=== PATIENT | male | born 1960 | race Two or more races ===

== ENCOUNTER 2016-09-05 14:15 | Inpatient (IN) | payer MEDICAID ==
[~2016-09-05] VITALS: Ht 175.3 cm; Wt 79.0 kg
[2016-09-05] MEDS ORDERED: SODIUM CHLORIDE 0.9% 1,000 ML IV ONE (15:01)
[2016-09-05 15:18] LABS: Basophils # (auto) 0.1 uL; Basophils % (auto) 0.6 % (0.0-2.0); Eosinophils # (auto) 0.2 uL; Hematocrit 45.7 % (41.0-53.0); Hemoglobin 15.3 g/dL (13.5-17.5); Lymphocytes # (auto) 1.3 uL; Lymphocytes % (auto) 16.3 % (10.0-50.0); Mean Corpuscular Hemoglobin 30.2 pg (28.0-32.0); Mean Corpuscular Hgb Conc. 33.5 g/dL (32.0-36.0); Mean Corpuscular Volume 90.2 fL (80.0-100.0); Mean Platelet Volume 8.5 fL (7.4-10.4); Monocytes # (auto) 0.5 uL; Monocytes % (auto) 5.5 % (0.0-12.0); Neutrophils # (auto) 6.2 uL; Neutrophils % (auto) 75.6 % (37.0-80.0); Platelet Count (auto) 242 10^3/uL (140-450); Red Cell Distribution Width 13.4 % (11.6-16.0); White Blood Cell 8.2 10^3/uL (4.4-10.8)
[2016-09-05 15:35] LABS: INR 1.03 (0.9-1.15); Partial Thromboplastin Time 26.9 sec (22.64-33.71); Prothrombin Time 10.6 sec (9.37-12.3)
[2016-09-05 15:46] LABS: Albumin 3.5 g/dL (3.4-5.0); BUN/Creatinine Ratio 15.2; Bilirubin, Total 0.6 mg/dL (0.2-1.0); Calcium 8.7 mg/dL (8.5-10.1); Potassium 4.8 mmol/L (3.5-5.1)
[2016-09-05 15:48] LABS: Urine RBC None Seen /hpf (0 - 3)
[2016-09-05 15:53] LABS: Urine Bilirubin Negative (Negative); Urine Blood Negative /uL (Negative); Urine Color Yellow (Yellow); Urine Hyaline Cast FEW /lpf (0 - 2); Urine Ketone Negative (Negative); Urine Nitrite Negative (Negative); Urine Urobilinogen Normal (Negative); Urine pH 5.5 (5.0-8.0)
[2016-09-05 16:11] LABS: Urine Glucose 4+ mg/dL (Normal)
[2016-09-05] MEDS ORDERED: cefTRIAXone 1GM/50ML D5W 50 ML IV ONE (17:30)
[2016-09-05] MEDS ORDERED: InsuLIN REG 1unit/0.01ml Soln (100units/ml) IV ONE (17:45)
[2016-09-05 18:16] LABS: INR 1.03 (0.9-1.15); Partial Thromboplastin Time 27.1 sec (22.64-33.71); Prothrombin Time 10.6 sec (9.37-12.3)
[2016-09-05] MEDS ORDERED: HYDROcodone-ACET 5/325MG TAB PO PRN (21:30)
[2016-09-05] MEDS ORDERED: ONDANSETRON HCL 4 MG/2 ML VIAL IV PRN (21:30)
[2016-09-05] MEDS ORDERED: DEXTROSE (50%) 50ML SYRG IV PRN (21:30)
[2016-09-05] MEDS ORDERED: ACETAMINOPHEN 325 MG TAB PO PRN (21:30)
[2016-09-05] MEDS ORDERED: ENOXAPARIN SOD 30 MG/0.3 ML SYRINGE SC SCH (21:41)
[2016-09-05] MEDS: CARVEDILOL 3.125 MG TAB PO SCH (21:57)
[2016-09-05] MEDS: SODIUM CHLORIDE 0.9% 1,000 ML IV SCH (21:57)
[2016-09-05] MEDS: FAMOTIDINE 20 MG TAB PO SCH (21:57)
[2016-09-05] MEDS ORDERED: ATORVASTATIN 20 MG TAB PO SCH (22:00)
[2016-09-05] MEDS ORDERED: AMITRIPTYLINE HCL 25 MG TAB PO SCH (22:00)
[2016-09-05 22:26] VITALS: BP 141/80
[2016-09-05] MEDS: ACCU-CHEK COMFORT CURVE STRIP VI SCH (23:43)
[2016-09-05] MEDS: InsuLIN REG 1unit/0.01ml Soln (100units/ml) SC SCH (23:43)
[2016-09-06] MEDS ORDERED: ATOR10TA PO (02:21)
[2016-09-06] MEDS ORDERED: INSR100KIT IV (02:21)
[2016-09-06] MEDS ORDERED: AMIT10TA6 PO (02:21)
[2016-09-06] MEDS ORDERED: TRAZ50TA2 PO (02:21)
[2016-09-06] MEDS ORDERED: ERGO1CAP6 PO (02:21)
[2016-09-06] MEDS ORDERED: BEN10T GT (02:21)
[2016-09-06] MEDS ORDERED: GLIP-115 PO (02:21)
[2016-09-06] MEDS ORDERED: ASPI-378 PO (02:21)
[2016-09-06] MEDS: ACCU-CHEK COMFORT CURVE STRIP VI SCH ×4 (03:57→16:00)
[2016-09-06] MEDS: InsuLIN REG 1unit/0.01ml Soln (100units/ml) SC SCH ×4 (03:59→16:00)
[2016-09-06 05:30] VITALS: BP 113/65
[2016-09-06] MEDS: glipiZIDE 5 MG TAB PO SCH ×2 (06:15→18:00)
[2016-09-06 06:31] LABS: Basophils # (auto) 0.1 uL; Basophils % (auto) 0.7 % (0.0-2.0); Eosinophils # (auto) 0.3 uL; Eosinophils % (auto) 3.7 % (0.0-7.0); Hematocrit 42.2 % (41.0-53.0); Hemoglobin 14.3 g/dL (13.5-17.5); Lymphocytes # (auto) 2.4 uL; Lymphocytes % (auto) 27.3 % (10.0-50.0); Mean Corpuscular Hemoglobin 30.3 pg (28.0-32.0); Mean Corpuscular Hgb Conc. 33.8 g/dL (32.0-36.0); Mean Corpuscular Volume 89.6 fL (80.0-100.0); Mean Platelet Volume 8.3 fL (7.4-10.4); Monocytes # (auto) 0.7 uL; Monocytes % (auto) 8.1 % (0.0-12.0); Neutrophils # (auto) 5.3 uL; Neutrophils % (auto) 60.2 % (37.0-80.0); Platelet Count (auto) 237 10^3/uL (140-450); Red Cell Distribution Width 13.1 % (11.6-16.0); White Blood Cell 8.8 10^3/uL (4.4-10.8)
[2016-09-06 06:55] LABS: BUN/Creatinine Ratio 16.7; Bilirubin, Total 0.3 mg/dL (0.2-1.0); Calcium 8.8 mg/dL (8.5-10.1); Potassium 3.2 mmol/L (3.5-5.1)
[2016-09-06 08:00] VITALS: BP 147/73
[2016-09-06] MEDS ORDERED: cefTRIAXone 1GM/50ML D5W 50 ML IV SCH (09:00)
[2016-09-06 09:24] VITALS: BP 147/73
[2016-09-06] MEDS ORDERED: FUROSEMIDE 40 MG TAB PO SCH (10:00)
[2016-09-06] MEDS: CARVEDILOL 3.125 MG TAB PO SCH (10:10)
[2016-09-06] MEDS: FAMOTIDINE 20 MG TAB PO SCH (10:10)
[2016-09-06] MEDS: SODIUM CHLORIDE 0.9% 1,000 ML IV SCH (10:50)
[2016-09-06] MEDS ORDERED: POTASSIUM CHL 20 Meq TABLET PO ONE (11:15)
[2016-09-06 13:00] VITALS: BP 134/80
[2016-09-06] MEDS ORDERED: DOXY-216 PO (14:24)
[2016-09-06 16:00] VITALS: BP 144/96
[2016-09-06 18:14] VITALS: BP 144/96
== END 2016-09-06 19:00 | disposition home or self-care (01) | DRG 144 ==
LOC: ER 14:15 → OVERFLOW 14:16 → EAST 22:26
PROVIDERS: ADMIT Internal Medicine; ATTEND Internal Medicine
DX: J20.9 Acute bronchitis, unspecified (principal); N17.0 Acute kidney failure with tubular necrosis; I13.0 Hypertensive heart and chronic kidney disease with heart failure and stage 1 through stage 4 chronic kidney disease, or unspecified chronic kidney disease; J18.9 Pneumonia, unspecified organism; E10.21 Type 1 diabetes mellitus with diabetic nephropathy; I50.9 Heart failure, unspecified; N18.4 Chronic kidney disease, stage 4 (severe); E10.65 Type 1 diabetes mellitus with hyperglycemia; E86.0 Dehydration; E87.1 Hypo-osmolality and hyponatremia; E10.22 Type 1 diabetes mellitus with diabetic chronic kidney disease; E78.5 Hyperlipidemia, unspecified; E87.6 Hypokalemia; I25.10 Atherosclerotic heart disease of native coronary artery without angina pectoris; Z82.49 Family history of ischemic heart disease and other diseases of the circulatory system; Z83.3 Family history of diabetes mellitus; Z95.5 Presence of coronary angioplasty implant and graft
CPT/HCPCS: 36415; 71020; 80053; 81001; 82010; 82962; 83036; 83735; 85025; 85610; 85730; 87040; 93005; 94761; 96361; 96365; 96375; J0696; J1815

== ENCOUNTER 2016-09-07 20:43 | Emergency (ER) | payer MEDICAID ==
[~2016-09-07] VITALS: Ht 175.3 cm; Wt 83.5 kg
[~2016-09-07 20:43] MED LIST: AMIT10TA6 PO; ASPI-378 PO; ATOR10TA PO; BEN10T GT; DOXY-216 PO; ERGO1CAP6 PO; GLIP-115 PO; INSR100KIT IV; TRAZ50TA2 PO
[2016-09-07 21:34] LABS: Urine Bilirubin Negative (Negative); Urine Blood Negative /uL (Negative); Urine Color Yellow (Yellow); Urine Ketone Negative (Negative); Urine Nitrite Negative (Negative); Urine RBC <1 /hpf (0 - 3); Urine Urobilinogen Normal (Negative)
[2016-09-07 21:38] LABS: Urine Glucose 4+ mg/dL (Normal)
[2016-09-08] MEDS ORDERED: SODIUM CHLORIDE 0.9% 1,000 ML IVB ONE (03:40)
[2016-09-08 04:05] LABS: Basophils # (auto) 0.1 uL; Basophils % (auto) 1.1 % (0.0-2.0); Eosinophils # (auto) 0.2 uL; Eosinophils % (auto) 3.1 % (0.0-7.0); Hemoglobin 14.2 g/dL (13.5-17.5); Lymphocytes # (auto) 2.2 uL; Lymphocytes % (auto) 31.1 % (10.0-50.0); Mean Corpuscular Hemoglobin 30.4 pg (28.0-32.0); Mean Corpuscular Hgb Conc. 33.7 g/dL (32.0-36.0); Mean Corpuscular Volume 90.2 fL (80.0-100.0); Mean Platelet Volume 8.2 fL (7.4-10.4); Monocytes # (auto) 0.7 uL; Monocytes % (auto) 9.3 % (0.0-12.0); Neutrophils # (auto) 3.9 uL; Neutrophils % (auto) 55.4 % (37.0-80.0); Platelet Count (auto) 236 10^3/uL (140-450); Red Cell Distribution Width 12.6 % (11.6-16.0)
[2016-09-08] MEDS ORDERED: InsuLIN REG 1unit/0.01ml Soln (100units/ml) IV ONE (04:15)
[2016-09-08 04:18] VITALS: BP 138/77
[2016-09-08 04:27] LABS: Albumin 3.3 g/dL (3.4-5.0); Calcium 9.2 mg/dL (8.5-10.1)
[2016-09-08 04:29] LABS: BUN/Creatinine Ratio 14.9
[2016-09-08 04:31] LABS: Bilirubin, Total 0.6 mg/dL (0.2-1.0); Total Protein 7.1 g/dL (6.4-8.2)
== END 2016-09-08 05:29 | disposition home or self-care (01) ==
LOC: ER 20:48
DX: E11.65 Type 2 diabetes mellitus with hyperglycemia (principal); I13.0 Hypertensive heart and chronic kidney disease with heart failure and stage 1 through stage 4 chronic kidney disease, or unspecified chronic kidney disease; N18.9 Chronic kidney disease, unspecified; I50.9 Heart failure, unspecified; E78.5 Hyperlipidemia, unspecified; Z98.61 Coronary angioplasty status; Z79.82 Long term (current) use of aspirin; Z79.4 Long term (current) use of insulin; Z79.899 Other long term (current) drug therapy
CPT/HCPCS: 36415; 71020; 80053; 81001; 82962; 85025; 96361; 96374

== ENCOUNTER 2018-03-03 16:22 | Inpatient (IN) | payer MEDICAID ==
[~2018-03-03] VITALS: Ht 175.3 cm; Wt 90.2 kg
[2018-03-03] MEDS: CARVEDILOL 3.125 MG TAB PO SCH (00:21)
[2018-03-03] MEDS: traZODone HCL 50 MG TAB PO SCH (00:21)
[2018-03-03] MEDS: ATORVASTATIN 20 MG TAB PO SCH (00:21)
[2018-03-03 00:57] VITALS: BP 137/79
[2018-03-03] MEDS ORDERED: SODIUM CHLORIDE 0.9% 500 ML IV ONE (18:31)
[2018-03-03] MEDS ORDERED: CLINDAMYCIN 600MG IV 50 ML IV ONE (18:45)
[2018-03-03 19:24] LABS: Basophils # (auto) 0 uL; Basophils % (auto) 0.3 % (0.0-2.0); Eosinophils # (auto) 0.1 uL; Eosinophils % (auto) 0.5 % (0.0-7.0); Hematocrit 42.6 % (41.0-53.0); Hemoglobin 14.5 g/dL (13.5-17.5); Lymphocytes # (auto) 1.2 uL; Lymphocytes % (auto) 7.7 % (10.0-50.0); Mean Corpuscular Hemoglobin 31.7 pg (28.0-32.0); Mean Corpuscular Hgb Conc. 34.1 g/dL (32.0-36.0); Mean Corpuscular Volume 92.8 fL (80.0-100.0); Monocytes # (auto) 1.1 uL; Monocytes % (auto) 7.2 % (0.0-12.0); Neutrophils # (auto) 13.3 uL; Neutrophils % (auto) 84.3 % (37.0-80.0); Platelet Count (auto) 159 10^3/uL (140-450); Red Cell Distribution Width 13.2 % (11.8-14.3); White Blood Cell 15.8 10^3/uL (4.4-10.8)
[2018-03-03 19:45] LABS: Albumin 2.8 g/dL (3.4-5.0); BUN/Creatinine Ratio 11.3; Calcium 8.1 mg/dL (8.5-10.1); Potassium 3.9 mmol/L (3.5-5.1)
[2018-03-03 19:47] LABS: Bilirubin, Total 0.6 mg/dL (0.2-1.0); INR 0.95 (0.9-1.15); Partial Thromboplastin Time 31.7 sec (23.78-33.04); Prothrombin Time 10.2 sec (9.27-12.13); Total Protein 7.3 g/dL (6.4-8.2)
[2018-03-03] MEDS ORDERED: ACETAMINOPHEN 325 MG TAB PO ONE (20:15)
[2018-03-03] MEDS ORDERED: cloNIDine HCL 0.1 MG TAB PO ONE (20:15)
[2018-03-03] MEDS ORDERED: METOCLOPRAMIDE HCL 5MG/ml INJ 2ml VIAL IV ONE (20:30)
[2018-03-03] MEDS ORDERED: MORPHINE SULFATE 4 MG/ML SYR/VIAL IV ONE (20:30)
[2018-03-03] MEDS ORDERED: VANCOMYCIN PER PHARMACY 0 MG IV SCH (20:45)
[2018-03-03] MEDS ORDERED: ACETAMINOPHEN 500 MG TAB PO PRN (20:45)
[2018-03-03] MEDS ORDERED: DEXTROSE (50%) 50ML SYRG IV PRN (20:45)
[2018-03-03] MEDS ORDERED: TEMAZEPAM 15 MG CAP PO PRN (20:45)
[2018-03-04] MEDS ORDERED: VANCOMYCIN 1GM/250ML 250 ML IV ONE (01:00)
[2018-03-04] MEDS: PIPERACILLIN-TAZOB 2.25GM 50 ML IV SCH ×4 (01:08→21:35)
[2018-03-04] MEDS: ACCU-CHEK COMFORT CURVE STRIP VI SCH ×5 (01:09→22:22)
[2018-03-04] MEDS: InsuLIN REG 1unit/0.01ml Soln (100units/ml) SC SCH ×5 (01:12→22:22)
[2018-03-04] MEDS: CARVEDILOL 3.125 MG TAB PO SCH ×3 (01:21→18:04)
[2018-03-04 04:53] VITALS: BP 150/82
[2018-03-04 05:38] LABS: Basophils # (auto) 0.1 uL; Basophils % (auto) 0.5 % (0.0-2.0); Eosinophils # (auto) 0.2 uL; Eosinophils % (auto) 1.5 % (0.0-7.0); Hematocrit 40.4 % (41.0-53.0); Hemoglobin 13.4 g/dL (13.5-17.5); Lymphocytes # (auto) 1.5 uL; Lymphocytes % (auto) 12.9 % (10.0-50.0); Mean Corpuscular Hemoglobin 30.5 pg (28.0-32.0); Mean Corpuscular Hgb Conc. 33.2 g/dL (32.0-36.0); Mean Corpuscular Volume 91.9 fL (80.0-100.0); Monocytes # (auto) 0.9 uL; Monocytes % (auto) 7.9 % (0.0-12.0); Neutrophils # (auto) 8.8 uL; Neutrophils % (auto) 77.2 % (37.0-80.0); Platelet Count (auto) 139 10^3/uL (140-450); Red Cell Distribution Width 13.4 % (11.8-14.3); White Blood Cell 11.4 10^3/uL (4.4-10.8)
[2018-03-04 05:46] LABS: BUN/Creatinine Ratio 11.2; Calcium 8.2 mg/dL (8.5-10.1); Potassium 3.9 mmol/L (3.5-5.1)
[2018-03-04 08:57] VITALS: BP 150/71
[2018-03-04 09:21] LABS: Urine Bacteria FEW /hpf (None Seen); Urine Blood 1+ /uL (Negative); Urine Specific Gravity 1.006 (1.001-1.035); Urine WBC 2 /hpf (0 - 3)
[2018-03-04] MEDS: LOSARTAN POTASSIUM 25 MG TAB PO SCH (10:58)
[2018-03-04] MEDS ORDERED: LIDOCAINE 2% (LOCAL ANESTH.) PF 5ml SDV ONE (11:15)
[2018-03-04] MEDS ORDERED: LIDOCAINE 1% (LOCAL ANESTH.) PF 5ml SDV ONE (11:15)
[2018-03-04] MEDS ORDERED: DAKINS QUARTER STR 0.125% (NaHypochlorite) 473 ML TOPICAL SOL TOP ONE (11:45)
[2018-03-04 13:00] VITALS: BP 164/82
[2018-03-04] MEDS: cloNIDine HCL 0.1 MG TAB PO PRN (15:53)
[2018-03-04 17:00] VITALS: BP 164/82
[2018-03-04] MEDS: traZODone HCL 50 MG TAB PO SCH (21:35)
[2018-03-04] MEDS: SILVER SULFADIAZINE 1 % TOPICAL CREAM 50GM TOP SCH ×2 (21:36→22:00)
[2018-03-04] MEDS: ATORVASTATIN 20 MG TAB PO SCH (21:36)
[2018-03-04 22:19] VITALS: BP 145/72
[2018-03-05] MEDS: PIPERACILLIN-TAZOB 2.25GM 50 ML IV SCH ×3 (05:15→21:28)
[2018-03-05 05:16] VITALS: BP 116/75
[2018-03-05 05:54] LABS: Basophils # (auto) 0.1 uL; Basophils % (auto) 0.5 % (0.0-2.0); Eosinophils # (auto) 0.2 uL; Eosinophils % (auto) 1.6 % (0.0-7.0); Hematocrit 36.9 % (41.0-53.0); Hemoglobin 12.5 g/dL (13.5-17.5); Lymphocytes # (auto) 1.4 uL; Lymphocytes % (auto) 12.5 % (10.0-50.0); Mean Corpuscular Hemoglobin 31.3 pg (28.0-32.0); Mean Corpuscular Hgb Conc. 33.9 g/dL (32.0-36.0); Mean Corpuscular Volume 92.4 fL (80.0-100.0); Monocytes % (auto) 8.8 % (0.0-12.0); Neutrophils # (auto) 8.5 uL; Neutrophils % (auto) 76.6 % (37.0-80.0); Platelet Count (auto) 139 10^3/uL (140-450); Red Cell Distribution Width 13.5 % (11.8-14.3); White Blood Cell 11.1 10^3/uL (4.4-10.8)
[2018-03-05 06:20] LABS: BUN/Creatinine Ratio 11.4; Calcium 7.7 mg/dL (8.5-10.1); Potassium 3.8 mmol/L (3.5-5.1)
[2018-03-05] MEDS: InsuLIN REG 1unit/0.01ml Soln (100units/ml) SC SCH ×4 (06:31→21:42)
[2018-03-05] MEDS: ACCU-CHEK COMFORT CURVE STRIP VI SCH ×4 (06:31→21:28)
[2018-03-05 08:00] VITALS: BP 145/72
[2018-03-05 08:51] VITALS: BP 134/73
[2018-03-05] MEDS ORDERED: VANCOMYCIN 1GM/250ML 250 ML IV ONE (09:00)
[2018-03-05] MEDS: CARVEDILOL 3.125 MG TAB PO SCH ×2 (10:01→18:01)
[2018-03-05] MEDS: LOSARTAN POTASSIUM 25 MG TAB PO SCH (10:02)
[2018-03-05] MEDS: ASCORBIC ACID 500 MG TAB PO SCH (10:02)
[2018-03-05] MEDS: SILVER SULFADIAZINE 1 % TOPICAL CREAM 50GM TOP SCH ×2 (10:02→22:00)
[2018-03-05] MEDS: ZINC SULFATE 220mg CAP or TAB PO SCH (10:02)
[2018-03-05] MEDS: DOCUSATE SOD 100 MG CAP PO SCH ×2 (12:31→21:28)
[2018-03-05] MEDS: cloNIDine HCL 0.1 MG TAB PO PRN ×2 (12:31→18:48)
[2018-03-05] MEDS: CYCLOBENZAPRINE HCL 10 MG TAB PO PRN (12:31)
[2018-03-05 12:58] VITALS: BP_SYST 135; BP_SYST 165; BP_DIAS 83; BP_DIAS 94
[2018-03-05 17:15] VITALS: BP 183/87
[2018-03-05] MEDS: ATORVASTATIN 20 MG TAB PO SCH (21:28)
[2018-03-05] MEDS: traZODone HCL 50 MG TAB PO SCH (21:28)
[2018-03-05 21:31] VITALS: BP 149/61
[2018-03-06] VITALS (7 sets, daily range): BP systolic 108–172; BP diastolic 54–87
[2018-03-06] MEDS: ACCU-CHEK COMFORT CURVE STRIP VI SCH ×4 (05:32→20:12)
[2018-03-06] MEDS: InsuLIN REG 1unit/0.01ml Soln (100units/ml) SC SCH ×5 (05:32→22:11)
[2018-03-06] MEDS: PIPERACILLIN-TAZOB 2.25GM 50 ML IV SCH ×2 (05:41→14:35)
[2018-03-06 07:00] LABS: Basophils # (auto) 0.1 uL; Basophils % (auto) 0.5 % (0.0-2.0); Eosinophils # (auto) 0.2 uL; Eosinophils % (auto) 1.7 % (0.0-7.0); Hematocrit 35.6 % (41.0-53.0); Hemoglobin 12.3 g/dL (13.5-17.5); Lymphocytes # (auto) 1.3 uL; Lymphocytes % (auto) 12.6 % (10.0-50.0); Mean Corpuscular Hemoglobin 31.7 pg (28.0-32.0); Mean Corpuscular Hgb Conc. 34.5 g/dL (32.0-36.0); Monocytes # (auto) 1.2 uL; Monocytes % (auto) 11.2 % (0.0-12.0); Neutrophils # (auto) 7.9 uL; Nucleated Red Blood Cells % 0.1 %; Platelet Count (auto) 156 10^3/uL (140-450); Red Blood Cells 3.87 10^6/uL (4.5-5.90); Red Cell Distribution Width 13.1 % (11.8-14.3); White Blood Cell 10.6 10^3/uL (4.4-10.8)
[2018-03-06 07:11] LABS: BUN/Creatinine Ratio 12.1; Calcium 8.2 mg/dL (8.5-10.1); Potassium 3.6 mmol/L (3.5-5.1)
[2018-03-06] MEDS: LOSARTAN POTASSIUM 25 MG TAB PO SCH (10:14)
[2018-03-06] MEDS: ASCORBIC ACID 500 MG TAB PO SCH (10:14)
[2018-03-06] MEDS: DOCUSATE SOD 100 MG CAP PO SCH ×2 (10:14→20:06)
[2018-03-06] MEDS: ZINC SULFATE 220mg CAP or TAB PO SCH (10:14)
[2018-03-06] MEDS: CARVEDILOL 3.125 MG TAB PO SCH ×2 (10:15→17:30)
[2018-03-06] MEDS: SILVER SULFADIAZINE 1 % TOPICAL CREAM 50GM TOP SCH ×2 (10:16→22:11)
[2018-03-06] MEDS ORDERED: VANCOMYCIN 1,250 MG in D5W 5% 250 ML IV SCH (11:30)
[2018-03-06] MEDS: cloNIDine HCL 0.1 MG TAB PO PRN (14:36)
[2018-03-06] MEDS: ERTAPENEM SOD INJ 0.5 GM in SODIUM CHL 0.9% 50 ML IV SCH (17:29)
[2018-03-06] MEDS: CYCLOBENZAPRINE HCL 10 MG TAB PO PRN (20:06)
[2018-03-06] MEDS: traZODone HCL 50 MG TAB PO SCH (20:06)
[2018-03-06] MEDS: ATORVASTATIN 20 MG TAB PO SCH (20:06)
[2018-03-07 04:59] VITALS: BP 133/56
[2018-03-07] MEDS: CYCLOBENZAPRINE HCL 10 MG TAB PO PRN (05:29)
[2018-03-07] MEDS: InsuLIN REG 1unit/0.01ml Soln (100units/ml) SC SCH ×4 (05:31→21:35)
[2018-03-07] MEDS: ACCU-CHEK COMFORT CURVE STRIP VI SCH ×4 (05:31→21:35)
[2018-03-07 08:12] VITALS: BP 161/81
[2018-03-07] MEDS: CARVEDILOL 3.125 MG TAB PO SCH ×2 (08:30→17:41)
[2018-03-07] MEDS: ZINC SULFATE 220mg CAP or TAB PO SCH (10:05)
[2018-03-07] MEDS: ERTAPENEM SOD INJ 0.5 GM in SODIUM CHL 0.9% 50 ML IV SCH (10:05)
[2018-03-07] MEDS: ASCORBIC ACID 500 MG TAB PO SCH (10:06)
[2018-03-07] MEDS: LOSARTAN POTASSIUM 25 MG TAB PO SCH (10:09)
[2018-03-07] MEDS: SILVER SULFADIAZINE 1 % TOPICAL CREAM 50GM TOP SCH ×2 (10:10→21:28)
[2018-03-07] MEDS: DOCUSATE SOD 100 MG CAP PO SCH ×2 (10:10→21:27)
[2018-03-07] MEDS: cloNIDine HCL 0.1 MG TAB PO PRN ×3 (10:15→17:10)
[2018-03-07 12:33] VITALS: BP 162/88
[2018-03-07 17:58] VITALS: BP 195/90
[2018-03-07] MEDS: traZODone HCL 50 MG TAB PO SCH (21:27)
[2018-03-07] MEDS: ATORVASTATIN 20 MG TAB PO SCH (21:27)
[2018-03-07 22:00] VITALS: BP 122/63
[2018-03-08 05:00] VITALS: BP 153/76
[2018-03-08] MEDS: InsuLIN REG 1unit/0.01ml Soln (100units/ml) SC SCH ×3 (06:08→17:00)
[2018-03-08] MEDS: ACCU-CHEK COMFORT CURVE STRIP VI SCH ×3 (06:08→17:00)
[2018-03-08] MEDS: CARVEDILOL 3.125 MG TAB PO SCH ×2 (08:04→18:19)
[2018-03-08 08:37] VITALS: BP 152/78
[2018-03-08] MEDS: ERTAPENEM SOD INJ 0.5 GM in SODIUM CHL 0.9% 50 ML IV SCH (09:45)
[2018-03-08] MEDS: ZINC SULFATE 220mg CAP or TAB PO SCH (09:51)
[2018-03-08] MEDS: DOCUSATE SOD 100 MG CAP PO SCH (09:51)
[2018-03-08] MEDS: ASCORBIC ACID 500 MG TAB PO SCH (09:51)
[2018-03-08] MEDS: SILVER SULFADIAZINE 1 % TOPICAL CREAM 50GM TOP SCH (09:52)
[2018-03-08] MEDS ORDERED: LOSARTAN POTASSIUM 50 MG TAB PO SCH (10:00)
[2018-03-08 13:47] VITALS: BP 155/81
[2018-03-08] MEDS ORDERED: LIDOCAINE 1% (LOCAL ANESTH.) PF 5ml SDV ID ONE (15:15)
[2018-03-08 16:36] VITALS: BP 166/97
[2018-03-08] MEDS ORDERED: SODIUM CHLOR 0.9% PF (SALINE LOCK) 10ML VIAL/SYR IV SCH (22:00)
[2018-03-18] MEDS ORDERED: ATOR40TA52 PO (18:08)
[2018-03-18] MEDS ORDERED: TRAZ100T2 PO (18:08)
[2018-03-18] MEDS ORDERED: ASPI325T4 PO (18:08)
[2018-03-18] MEDS ORDERED: FURO40TA4 PO (18:08)
[2018-03-18] MEDS ORDERED: LOSA25TA9 PO (18:08)
[2018-03-18] MEDS ORDERED: NITR0.4S29 SL (18:08)
[2018-03-18] MEDS ORDERED: CYCL1TAB18 PO (18:08)
[2018-03-18] MEDS ORDERED: CARV6.2551 PO (18:08)
[2018-03-18] MEDS ORDERED: FLUT0.05 NAS (18:08)
[2018-03-18] MEDS ORDERED: AMIT25TA9 PO (18:08)
[2018-03-18] MEDS ORDERED: LORA-654 PO (18:08)
[2018-03-18] MEDS ORDERED: GLIP-116 PO (18:08)
== END 2018-03-08 20:10 | disposition home health service (06) | DRG 710 ==
LOC: ER 16:22 → OVERFLOW 16:23 → WEST WING 23:31
PROVIDERS: ADMIT Nurse Practitioner Family; ATTEND Internal Medicine Pulmonary Disease
PROC: 0MBS0ZZ Excision of Right Foot Bursa and Ligament, Open Approach (ICD-10-PCS; principal; 2018-03-07)
PROC: 02HV33Z Insertion of Infusion Device into Superior Vena Cava, Percutaneous Approach (ICD-10-PCS; 2018-03-08)
DX: A41.9 Sepsis, unspecified organism (principal); I13.2 Hypertensive heart and chronic kidney disease with heart failure and with stage 5 chronic kidney disease, or end stage renal disease; E11.52 Type 2 diabetes mellitus with diabetic peripheral angiopathy with gangrene; A48.0 Gas gangrene; E11.22 Type 2 diabetes mellitus with diabetic chronic kidney disease; E44.0 Moderate protein-calorie malnutrition; L03.115 Cellulitis of right lower limb; N18.5 Chronic kidney disease, stage 5; E11.621 Type 2 diabetes mellitus with foot ulcer; E11.628 Type 2 diabetes mellitus with other skin complications; L97.519 Non-pressure chronic ulcer of other part of right foot with unspecified severity; I25.10 Atherosclerotic heart disease of native coronary artery without angina pectoris; J45.909 Unspecified asthma, uncomplicated; L02.611 Cutaneous abscess of right foot; I16.0 Hypertensive urgency; I50.9 Heart failure, unspecified; M79.2 Neuralgia and neuritis, unspecified; Z79.899 Other long term (current) drug therapy; Z79.4 Long term (current) use of insulin; Z79.82 Long term (current) use of aspirin; Z88.1 Allergy status to other antibiotic agents; Z88.5 Allergy status to narcotic agent; Z82.49 Family history of ischemic heart disease and other diseases of the circulatory system; Z83.3 Family history of diabetes mellitus; Z68.29 Body mass index [BMI] 29.0-29.9, adult
CPT/HCPCS: 36415; 36569; 71045; 73700; 80048; 80053; 80202; 81001; 82962; 83036; 85025; 85610; 85652; 85730; 87077; 87081; 87186; 87205; 93005; 93926; 93971; 94761; 96365; 96367; 96375; J1335; J1815; J2001; J2543; J3490; J7060

== ENCOUNTER 2020-03-04 22:06 | Emergency (ER) | payer MEDICARE, MEDICAID ==
[~2020-03-04] VITALS: Ht 177.8 cm; Wt 72.6 kg
[~2020-03-04 22:06] MED LIST changes: -AMIT10TA6 PO; +AMIT25TA9 PO; +AMLO5TAB15 PO; -ASPI-378 PO; +ASPI325T4 PO; -ATOR10TA PO; +ATOR40TA52 PO; -BEN10T GT; +CARV12.544 PO; +CHOL20007 PO; -DOXY-216 PO; -ERGO1CAP6 PO; +FLUT0.05 NAS; +FURO40TA4 PO; -GLIP-115 PO; +GLIP10TA9 PO; -INSR100KIT IV; +NITR0.4S29 SL; +TRAZ100T3 PO; -TRAZ50TA2 PO
[2020-03-05 03:22] VITALS: BP 161/81
== END 2020-03-05 03:17 | disposition home or self-care (01) ==
LOC: EDBD 22:06 → ER 22:06
DX: S13.9XXA Sprain of joints and ligaments of unspecified parts of neck, initial encounter (principal); S20.229A Contusion of unspecified back wall of thorax, initial encounter; I25.10 Atherosclerotic heart disease of native coronary artery without angina pectoris; I13.0 Hypertensive heart and chronic kidney disease with heart failure and stage 1 through stage 4 chronic kidney disease, or unspecified chronic kidney disease; E11.22 Type 2 diabetes mellitus with diabetic chronic kidney disease; N18.9 Chronic kidney disease, unspecified; I50.9 Heart failure, unspecified; E78.5 Hyperlipidemia, unspecified; I25.2 Old myocardial infarction; Z88.5 Allergy status to narcotic agent; Z88.8 Allergy status to other drugs, medicaments and biological substances; V43.92XA Unspecified car occupant injured in collision with other type car in traffic accident, initial encounter; Y93.89 Activity, other specified; Y92.410 Unspecified street and highway as the place of occurrence of the external cause; Y99.8 Other external cause status
CPT/HCPCS: 70450; 72125; 72128

== ENCOUNTER → 2020-03-22 | Emergency (ER) | payer OTHER, MEDICAID ==
[~2020-03-22] VITALS: Ht 175.3 cm; Wt 87.5 kg
[2020-03-22 16:00] VITALS: BP 166/86
== END | disposition home or self-care (01) ==
LOC: EDBD 14:47 → ER 14:47 → EDUNIT# 14:47
DX: S16.1XXA Strain of muscle, fascia and tendon at neck level, initial encounter (principal); J18.1 Lobar pneumonia, unspecified organism; R07.81 Pleurodynia; I25.2 Old myocardial infarction; I13.0 Hypertensive heart and chronic kidney disease with heart failure and stage 1 through stage 4 chronic kidney disease, or unspecified chronic kidney disease; E11.22 Type 2 diabetes mellitus with diabetic chronic kidney disease; N18.9 Chronic kidney disease, unspecified; I50.9 Heart failure, unspecified; Z86.73 Personal history of transient ischemic attack (TIA), and cerebral infarction without residual deficits; Z98.61 Coronary angioplasty status; Z88.6 Allergy status to analgesic agent; Z88.8 Allergy status to other drugs, medicaments and biological substances; V49.49XA Driver injured in collision with other motor vehicles in traffic accident, initial encounter; Y93.89 Activity, other specified; Y99.8 Other external cause status; Y92.410 Unspecified street and highway as the place of occurrence of the external cause
CPT/HCPCS: 71250; 72125; 74176

== ENCOUNTER 2020-11-26 17:16 | Emergency (ER) | payer BC, OTHER ==
[~2020-11-26] VITALS: Ht 175.3 cm; Wt 99.3 kg
[~2020-11-26 17:16] MED LIST changes: +AMIT25TA12 PO; -AMIT25TA9 PO; +AMLO-489 PO; -AMLO5TAB15 PO
[2020-11-26 18:26] LABS: Basophils # (auto) 0.1 10 ^3/uL (0-0.2); Basophils % (auto) 1.3 % (0.0-2.0); Eosinophils # (auto) 0.5 10 ^3/uL (0-0.8); Monocytes # (auto) 0.4 10 ^3/uL (0-1.3)
[2020-11-26 18:28] LABS: Eosinophils % (auto) 7.3 % (0.0-7.0); Hematocrit 24.3 % (41.0-53.0); Lymphocytes # (auto) 0.5 10 ^3/uL (0.4-5.4); Lymphocytes % (auto) 8.6 % (10.0-50.0); Mean Corpuscular Hemoglobin 30.2 pg (28.0-32.0); Mean Corpuscular Volume 91.4 fL (80.0-100.0); Monocytes % (auto) 6.9 % (0.0-12.0); Neutrophils # (auto) 4.8 10 ^3/uL (1.6-8.6); Neutrophils % (auto) 75.9 % (37.0-80.0); Red Blood Cells 2.66 10^6/uL (4.5-5.90); Red Cell Distribution Width 17.6 % (11.8-14.3); White Blood Cell 6.3 10^3/uL (4.4-10.8)
[2020-11-26 18:33] LABS: INR 1.19 (0.9-1.15); Potassium 5.3 mmol/L (3.5-5.1)
[2020-11-26 18:36] LABS: BUN/Creatinine Ratio 13.8; Bilirubin, Total 0.6 mg/dL (0.2-1.0)
[2020-11-26 23:50] LABS: Urine Bacteria FEW /hpf (None Seen); Urine Blood TRACE /uL (Negative); Urine Specific Gravity 1.009 (1.001-1.035); Urine WBC 11 /hpf (0 - 3)
[2020-11-27 07:36] VITALS: BP 139/71
== END 2020-11-27 08:16 | disposition short-term general hospital (02) ==
LOC: ER 17:16
DX: J81.1 Chronic pulmonary edema (principal); E11.22 Type 2 diabetes mellitus with diabetic chronic kidney disease; I13.2 Hypertensive heart and chronic kidney disease with heart failure and with stage 5 chronic kidney disease, or end stage renal disease; I50.9 Heart failure, unspecified; N18.6 End stage renal disease; I25.10 Atherosclerotic heart disease of native coronary artery without angina pectoris; I25.2 Old myocardial infarction; Z79.899 Other long term (current) drug therapy; Z79.82 Long term (current) use of aspirin; Z88.5 Allergy status to narcotic agent; Z88.8 Allergy status to other drugs, medicaments and biological substances; Z20.822 Contact with and (suspected) exposure to COVID-19
CPT/HCPCS: 36415; 71045; 80053; 81001; 85025; 85610; 87426; 93005

== ENCOUNTER 2022-04-07 14:09 | Inpatient (IN) | payer MEDICARE, MEDICAID ==
[~2022-04-07] VITALS: Ht 175.3 cm; Wt 79.6 kg
[2022-04-07] MEDS ORDERED: CEFEPIME 2 GM in SODIUM CHL 0.9% 50 ML IV ONE ×2 (16:15→23:30)
[2022-04-07] MEDS ORDERED: VANCOMYCIN PER PHARMACY 0 MG IV SCH (16:15)
[2022-04-07] MEDS ORDERED: VANCOMYCIN 1GM/250ML 250 ML IV ONE (16:45)
[2022-04-07 16:47] LABS: Basophils # (auto) 0.1 10 ^3/uL (0-0.2); Basophils % (auto) 0.9 % (0.0-2.0); Eosinophils # (auto) 0.1 10 ^3/uL (0-0.8); Eosinophils % (auto) 0.8 % (0.0-7.0); Hematocrit 35.7 % (41.0-53.0); Hemoglobin 11.4 g/dL (13.5-17.5); Lymphocytes # (auto) 0.9 10 ^3/uL (0.4-5.4); Lymphocytes % (auto) 8.3 % (10.0-50.0); Mean Corpuscular Hemoglobin 29.2 pg (28.0-32.0); Mean Corpuscular Hgb Conc. 31.9 g/dL (32.0-36.0); Mean Corpuscular Volume 91.4 fL (80.0-100.0); Monocytes # (auto) 0.5 10 ^3/uL (0-1.3); Monocytes % (auto) 4.8 % (0.0-12.0); Neutrophils # (auto) 9.2 10 ^3/uL (1.6-8.6); Neutrophils % (auto) 85.2 % (37.0-80.0); Nucleated Red Blood Cells % 0.1 %; Red Blood Cells 3.91 10^6/uL (4.5-5.90); Red Cell Distribution Width 16.5 % (11.8-14.3); White Blood Cell 10.8 10^3/uL (4.4-10.8)
[2022-04-07 17:03] LABS: Albumin 2.2 g/dL (3.4-5.0); BUN/Creatinine Ratio 9.7; Calcium 8.3 mg/dL (8.5-10.1); Potassium 3.3 mmol/L (3.5-5.1)
[2022-04-07 17:04] LABS: INR 1.15 (0.9-1.15); Partial Thromboplastin Time 36.9 sec (24.6-33.4)
[2022-04-07 17:07] LABS: Total Protein 7.9 g/dL (6.4-8.2)
[2022-04-07] MEDS ORDERED: DOCUSATE SOD 100 MG CAP PO PRN (21:30)
[2022-04-07] MEDS ORDERED: SODIUM CHLORIDE 0.9% 1,000 ML IV SCH (21:30)
[2022-04-07] MEDS ORDERED: ONDANSETRON HCL 4 MG/2 ML VIAL IV PRN (21:30)
[2022-04-07] MEDS ORDERED: NITROGLYCERIN 0.4 MG SL TAB SL PRN (21:30)
[2022-04-07] MEDS ORDERED: DEXTROSE (50%) 50ML SYRG IV PRN (23:00)
[2022-04-07] MEDS ORDERED: FAMOTIDINE (10MG/ML) 2ML VL IV ONE (23:15)
[2022-04-07] MEDS ORDERED: diphenhdrAMINE HCL 50 MG/1 ML VL IV ONE (23:15)
[2022-04-07] MEDS ORDERED: CEFEPIME 1GM/ 50ML 100 ML IV ONE (23:48)
[2022-04-08] MEDS: AMITRIPTYLINE HCL 25 MG TAB PO SCH ×2 (00:05→21:45)
[2022-04-08] MEDS: ACCU-CHEK COMFORT CURVE STRIP VI SCH ×4 (05:59→21:46)
[2022-04-08 06:05] LABS: Basophils # (auto) 0.1 10 ^3/uL (0-0.2); Eosinophils # (auto) 0.1 10 ^3/uL (0-0.8); Eosinophils % (auto) 1.3 % (0.0-7.0); Hematocrit 29.9 % (41.0-53.0); Hemoglobin 9.8 g/dL (13.5-17.5); Lymphocytes % (auto) 10.3 % (10.0-50.0); Mean Corpuscular Hemoglobin 29.9 pg (28.0-32.0); Mean Corpuscular Hgb Conc. 32.9 g/dL (32.0-36.0); Mean Corpuscular Volume 90.8 fL (80.0-100.0); Monocytes # (auto) 0.6 10 ^3/uL (0-1.3); Monocytes % (auto) 6.2 % (0.0-12.0); Neutrophils # (auto) 7.7 10 ^3/uL (1.6-8.6); Neutrophils % (auto) 81.2 % (37.0-80.0); Red Blood Cells 3.29 10^6/uL (4.5-5.90); Red Cell Distribution Width 16.3 % (11.8-14.3); White Blood Cell 9.4 10^3/uL (4.4-10.8)
[2022-04-08 06:24] LABS: Potassium 3.2 mmol/L (3.5-5.1)
[2022-04-08] MEDS: InsuLIN REG 1unit/0.01ml Soln (100units/ml) SC SCH ×4 (06:26→21:47)
[2022-04-08 06:27] LABS: BUN/Creatinine Ratio 10.4
[2022-04-08 08:57] VITALS: BP 149/87
[2022-04-08] MEDS ORDERED: CEFEPIME 1GM/ 50ML 50 ML IV SCH ×2 (10:00→22:00)
[2022-04-08] MEDS: ASPirin 81 mg TAB PO SCH (10:33)
[2022-04-08 13:00] VITALS: BP 148/85
[2022-04-08] MEDS ORDERED: SODIUM CHL 0.9% 1000 ML BAG XX ONE (13:30)
[2022-04-08] MEDS: CLINDAMYCIN 600MG IV 50 ML IV SCH ×2 (14:00→21:45)
[2022-04-08 16:38] VITALS: BP 139/83
[2022-04-08] MEDS ORDERED: EPOETIN ALFA-EPBX 4,000 UNIT/ML VIAL SC ONE (21:00)
[2022-04-08] MEDS: ATORVASTATIN 20 MG TAB PO SCH (21:46)
[2022-04-08 22:00] VITALS: BP 140/80
[2022-04-09 05:00] VITALS: BP 132/73
[2022-04-09] MEDS: InsuLIN REG 1unit/0.01ml Soln (100units/ml) SC SCH ×4 (06:24→22:00)
[2022-04-09] MEDS: CLINDAMYCIN 600MG IV 50 ML IV SCH ×3 (06:25→22:12)
[2022-04-09] MEDS: ACCU-CHEK COMFORT CURVE STRIP VI SCH ×4 (06:25→22:12)
[2022-04-09 06:48] LABS: Potassium 3.5 mmol/L (3.5-5.1)
[2022-04-09 06:49] LABS: BUN/Creatinine Ratio 10.7
[2022-04-09 06:51] LABS: Basophils # (auto) 0.1 10 ^3/uL (0-0.2); Basophils % (auto) 0.9 % (0.0-2.0); Eosinophils # (auto) 0.1 10 ^3/uL (0-0.8); Eosinophils % (auto) 1.4 % (0.0-7.0); Hematocrit 29.9 % (41.0-53.0); Hemoglobin 9.7 g/dL (13.5-17.5); Lymphocytes # (auto) 0.8 10 ^3/uL (0.4-5.4); Lymphocytes % (auto) 8.1 % (10.0-50.0); Mean Corpuscular Hemoglobin 29.3 pg (28.0-32.0); Mean Corpuscular Hgb Conc. 32.6 g/dL (32.0-36.0); Mean Corpuscular Volume 89.7 fL (80.0-100.0); Monocytes # (auto) 0.6 10 ^3/uL (0-1.3); Neutrophils # (auto) 8.5 10 ^3/uL (1.6-8.6); Neutrophils % (auto) 83.6 % (37.0-80.0); Red Blood Cells 3.33 10^6/uL (4.5-5.90); Red Cell Distribution Width 15.9 % (11.8-14.3); White Blood Cell 10.1 10^3/uL (4.4-10.8)
[2022-04-09] MEDS: ASPirin 81 mg TAB PO SCH (10:22)
[2022-04-09] MEDS: cefTRIAXone 1GM/50ML D5W 50 ML IV SCH (10:24)
[2022-04-09 13:00] VITALS: BP 138/91
[2022-04-09 17:00] VITALS: BP 127/75
[2022-04-09] MEDS: GABAPENTIN 300 MG CAP PO SCH (18:25)
[2022-04-09 22:00] VITALS: BP 122/69
[2022-04-09] MEDS ORDERED: GABAPENTIN 100 MG CAP PO SCH (22:00)
[2022-04-09] MEDS: AMITRIPTYLINE HCL 25 MG TAB PO SCH (22:12)
[2022-04-09] MEDS: ATORVASTATIN 20 MG TAB PO SCH (22:12)
[2022-04-10 05:00] VITALS: BP 119/70
[2022-04-10] MEDS: CLINDAMYCIN 600MG IV 50 ML IV SCH ×2 (05:49→14:55)
[2022-04-10] MEDS: InsuLIN REG 1unit/0.01ml Soln (100units/ml) SC SCH ×4 (05:49→21:36)
[2022-04-10] MEDS: ACCU-CHEK COMFORT CURVE STRIP VI SCH ×4 (05:50→21:34)
[2022-04-10] MEDS ORDERED: IOHEXOL 350 MG/ML 100ML IJ ONE (07:10)
[2022-04-10 08:21] VITALS: BP 135/78
[2022-04-10] MEDS: ASPirin 81 mg TAB PO SCH (10:31)
[2022-04-10] MEDS: cefTRIAXone 1GM/50ML D5W 50 ML IV SCH (10:32)
[2022-04-10 12:25] VITALS: BP 139/73
[2022-04-10] MEDS ORDERED: levoFLOXacin 500MG 100 ML IV ONE (15:30)
[2022-04-10] MEDS: GABAPENTIN 300 MG CAP PO SCH (18:00)
[2022-04-10] MEDS: ATORVASTATIN 20 MG TAB PO SCH (21:33)
[2022-04-10 22:00] VITALS: BP 115/65
[2022-04-10] MEDS: AMITRIPTYLINE HCL 25 MG TAB PO SCH (22:00)
[2022-04-11 05:00] VITALS: BP 118/68
[2022-04-11 06:04] LABS: Hematocrit 30.3 % (41.0-53.0); Hemoglobin 9.8 g/dL (13.5-17.5)
[2022-04-11] MEDS: InsuLIN REG 1unit/0.01ml Soln (100units/ml) SC SCH ×4 (06:14→21:19)
[2022-04-11] MEDS: ACCU-CHEK COMFORT CURVE STRIP VI SCH ×3 (06:14→17:27)
[2022-04-11 06:49] LABS: % Iron Saturation 27.4 % (20-55)
[2022-04-11] MEDS ORDERED: SODIUM CHL 0.9% 1000 ML BAG XX ONE (07:00)
[2022-04-11 09:00] VITALS: BP 109/45
[2022-04-11] MEDS: ASPirin 81 mg TAB PO SCH (09:43)
[2022-04-11] MEDS ORDERED: ALBUTEROL SULF 2.5 MG/0.5ML(0.5%) NEB SOLN NEB PRN (12:00)
[2022-04-11] MEDS ORDERED: IPRATROPIUM BROM 0.5 MG/2.5ML INH SOL NEB PRN (12:00)
[2022-04-11 13:00] VITALS: BP 119/68
[2022-04-11] MEDS: levoFLOXacin 250MG 50 ML IV SCH (16:17)
[2022-04-11 17:00] VITALS: BP 156/46
[2022-04-11] MEDS: GABAPENTIN 300 MG CAP PO SCH (17:25)
[2022-04-11] MEDS ORDERED: EPOETIN ALFA-EPBX 4,000 UNIT/ML VIAL SC ONE (21:00)
[2022-04-11] MEDS: AMITRIPTYLINE HCL 25 MG TAB PO SCH (21:18)
[2022-04-11] MEDS: ATORVASTATIN 20 MG TAB PO SCH (21:18)
[2022-04-11 22:00] VITALS: BP 103/70
[2022-04-11 22:23] VITALS: BP 156/46
[2022-04-12] MEDS: ACCU-CHEK COMFORT CURVE STRIP VI SCH ×5 (00:12→21:24)
[2022-04-12 05:00] VITALS: BP 114/76
[2022-04-12] MEDS: InsuLIN REG 1unit/0.01ml Soln (100units/ml) SC SCH ×4 (06:36→21:25)
[2022-04-12 09:00] VITALS: BP 129/75
[2022-04-12] MEDS: ASPirin 81 mg TAB PO SCH (09:13)
[2022-04-12 13:00] VITALS: BP 139/78
[2022-04-12] MEDS ORDERED: NAFCILLIN SOD 1GM 1 GM in SODIUM CHL 0.9% 50 ML IV SCH (14:00)
[2022-04-12 16:37] VITALS: BP 135/83
[2022-04-12] MEDS: GABAPENTIN 300 MG CAP PO SCH (17:09)
[2022-04-12] MEDS: AMPICILLIN INJ 1 GM in SODIUM CHL 0.9% 50 ML IV SCH (17:24)
[2022-04-12] MEDS: AMITRIPTYLINE HCL 25 MG TAB PO SCH (21:31)
[2022-04-12] MEDS: ATORVASTATIN 20 MG TAB PO SCH (21:31)
[2022-04-12 22:39] VITALS: BP 139/79
[2022-04-13 04:44] VITALS: BP 110/56
[2022-04-13] MEDS: AMPICILLIN INJ 1 GM in SODIUM CHL 0.9% 50 ML IV SCH ×2 (05:29→18:11)
[2022-04-13] MEDS: InsuLIN REG 1unit/0.01ml Soln (100units/ml) SC SCH ×4 (06:51→21:53)
[2022-04-13] MEDS: ACCU-CHEK COMFORT CURVE STRIP VI SCH ×4 (06:52→21:53)
[2022-04-13] MEDS ORDERED: SODIUM CHL 0.9% 1000 ML BAG XX ONE (07:00)
[2022-04-13 09:00] VITALS: BP 135/79
[2022-04-13] MEDS: ASPirin 81 mg TAB PO SCH (09:18)
[2022-04-13 13:00] VITALS: BP 139/87
[2022-04-13] MEDS ORDERED: ACETAMINOPHEN 325 MG TAB PO PRN (14:00)
[2022-04-13 14:21] LABS: Hematocrit 31.4 % (41.0-53.0); Hemoglobin 10.2 g/dL (13.5-17.5)
[2022-04-13] MEDS: levoFLOXacin 250MG 50 ML IV SCH (15:23)
[2022-04-13 17:00] VITALS: BP 107/66
[2022-04-13] MEDS: GABAPENTIN 300 MG CAP PO SCH (18:11)
[2022-04-13] MEDS ORDERED: EPOETIN ALFA-EPBX 4,000 UNIT/ML VIAL SC ONE (21:00)
[2022-04-13] MEDS: AMITRIPTYLINE HCL 25 MG TAB PO SCH (21:46)
[2022-04-13] MEDS: ATORVASTATIN 20 MG TAB PO SCH (21:46)
[2022-04-13 22:10] VITALS: BP 123/73
[2022-04-14 02:33] LABS: Urine Bacteria NONE SEEN /hpf (None Seen); Urine Blood 1+ /uL (Negative); Urine Specific Gravity 1.017 (1.001-1.035); Urine WBC 979 /hpf (0 - 3)
[2022-04-14 04:21] LABS: Basophils # (auto) 0.1 10 ^3/uL (0-0.2); Basophils % (auto) 1.1 % (0.0-2.0); Eosinophils # (auto) 0.2 10 ^3/uL (0-0.8); Eosinophils % (auto) 2.1 % (0.0-7.0); Hematocrit 32.1 % (41.0-53.0); Hemoglobin 10.6 g/dL (13.5-17.5); Lymphocytes # (auto) 0.8 10 ^3/uL (0.4-5.4); Lymphocytes % (auto) 9.7 % (10.0-50.0); Mean Corpuscular Hemoglobin 29.9 pg (28.0-32.0); Mean Corpuscular Volume 90.4 fL (80.0-100.0); Monocytes # (auto) 0.5 10 ^3/uL (0-1.3); Monocytes % (auto) 5.6 % (0.0-12.0); Neutrophils # (auto) 6.7 10 ^3/uL (1.6-8.6); Neutrophils % (auto) 81.5 % (37.0-80.0); Red Blood Cells 3.56 10^6/uL (4.5-5.90); Red Cell Distribution Width 16.6 % (11.8-14.3); White Blood Cell 8.2 10^3/uL (4.4-10.8)
[2022-04-14 04:37] LABS: Albumin 2.1 g/dL (3.4-5.0); BUN/Creatinine Ratio 8.8; Calcium 8.1 mg/dL (8.5-10.1); Potassium 3.8 mmol/L (3.5-5.1)
[2022-04-14 04:40] LABS: Bilirubin, Total 0.7 mg/dL (0.2-1.0)
[2022-04-14 04:44] LABS: INR 1.28 (0.9-1.15); Partial Thromboplastin Time 39.2 sec (24.6-33.4)
[2022-04-14 05:22] VITALS: BP 143/84
[2022-04-14] MEDS: ACCU-CHEK COMFORT CURVE STRIP VI SCH ×4 (06:01→22:01)
[2022-04-14] MEDS: InsuLIN REG 1unit/0.01ml Soln (100units/ml) SC SCH ×4 (06:01→22:00)
[2022-04-14] MEDS: AMPICILLIN INJ 1 GM in SODIUM CHL 0.9% 50 ML IV SCH ×2 (06:23→17:05)
[2022-04-14] MEDS ORDERED: LIDOCAINE 1%HCL (LOCAL ANESTH) 10 ML MDV ONE ×2 (06:47→07:46)
[2022-04-14] MEDS ORDERED: fentaNYL CITRATE 100 MCG/2 ML VL ONE (07:33)
[2022-04-14] MEDS ORDERED: MIDAZOLAM HCL 2MG/2ML 2ml VIAL (1mg/ml) ONE (07:33)
[2022-04-14] MEDS ORDERED: PROPOFOL 10 MG/ML 20 ML IV ONE (07:34)
[2022-04-14] MEDS ORDERED: ONDANSETRON HCL 4 MG/2 ML VIAL ONE (07:34)
[2022-04-14] MEDS ORDERED: LIDOCAINE 2% (LOCAL ANESTH.) PF 5ml SDV ONE (07:34)
[2022-04-14] MEDS ORDERED: SUGAMMADEX 200mg/2ml Vial (100MG/ML) IV ONE (08:01)
[2022-04-14] MEDS ORDERED: ONDANSETRON HCL 4 MG/2 ML VIAL IV PRN (08:15)
[2022-04-14] MEDS: ASPirin 81 mg TAB PO SCH (11:37)
[2022-04-14 13:00] VITALS: BP 124/70
[2022-04-14 16:56] VITALS: BP 127/67
[2022-04-14] MEDS: GABAPENTIN 300 MG CAP PO SCH (17:05)
[2022-04-14 20:00] VITALS: BP 127/67
[2022-04-14] MEDS ORDERED: PIPERACILLIN-TAZOB 0.75 GM in D5W 5% 50 ML IV PRN (20:15)
[2022-04-14 22:00] VITALS: BP 136/79
[2022-04-14] MEDS: AMITRIPTYLINE HCL 25 MG TAB PO SCH (22:00)
[2022-04-14] MEDS: PIPERACILLIN-TAZOB 2.25GM 50 ML IV SCH (22:00)
[2022-04-14] MEDS: ATORVASTATIN 20 MG TAB PO SCH (22:01)
[2022-04-15 05:00] VITALS: BP 106/65
[2022-04-15 06:26] LABS: Hematocrit 28.6 % (41.0-53.0); Hemoglobin 9.3 g/dL (13.5-17.5)
[2022-04-15] MEDS: ACCU-CHEK COMFORT CURVE STRIP VI SCH ×4 (06:28→21:55)
[2022-04-15] MEDS: InsuLIN REG 1unit/0.01ml Soln (100units/ml) SC SCH ×4 (06:28→21:54)
[2022-04-15] MEDS ORDERED: SODIUM CHL 0.9% 1000 ML BAG XX ONE (07:00)
[2022-04-15 09:00] VITALS: BP 126/72
[2022-04-15] MEDS: PIPERACILLIN-TAZOB 2.25GM 50 ML IV SCH ×2 (10:37→21:54)
[2022-04-15] MEDS: ASPirin 81 mg TAB PO SCH (10:37)
[2022-04-15 13:15] VITALS: BP 132/60
[2022-04-15 17:00] VITALS: BP 136/81
[2022-04-15] MEDS: GABAPENTIN 300 MG CAP PO SCH (17:30)
[2022-04-15] MEDS ORDERED: EPOETIN ALFA-EPBX 4,000 UNIT/ML VIAL SC ONE (21:00)
[2022-04-15] MEDS: AMITRIPTYLINE HCL 25 MG TAB PO SCH (21:55)
[2022-04-15] MEDS: ATORVASTATIN 20 MG TAB PO SCH (21:55)
[2022-04-15 22:07] VITALS: BP 134/79
[2022-04-16 05:35] VITALS: BP 99/52
[2022-04-16] MEDS: ACCU-CHEK COMFORT CURVE STRIP VI SCH ×4 (06:53→22:02)
[2022-04-16] MEDS: InsuLIN REG 1unit/0.01ml Soln (100units/ml) SC SCH ×4 (06:53→22:01)
[2022-04-16 09:00] VITALS: BP 132/76
[2022-04-16] MEDS: ASPirin 81 mg TAB PO SCH (09:03)
[2022-04-16] MEDS: PIPERACILLIN-TAZOB 2.25GM 50 ML IV SCH ×2 (09:04→21:53)
[2022-04-16] MEDS: DAKINS QUARTER STR 0.125% (NaHypochlorite) 473 ML TOPICAL SOL TOP SCH (10:10)
[2022-04-16 13:00] VITALS: BP 105/66
[2022-04-16 17:00] VITALS: BP 134/77
[2022-04-16] MEDS: GABAPENTIN 300 MG CAP PO SCH (18:16)
[2022-04-16] MEDS: AMITRIPTYLINE HCL 25 MG TAB PO SCH (21:54)
[2022-04-16] MEDS: LINEZOLID 600MG TABLET PO SCH (21:54)
[2022-04-16] MEDS: ATORVASTATIN 20 MG TAB PO SCH (21:54)
[2022-04-16 22:00] VITALS: BP 135/82
[2022-04-17] VITALS (7 sets, daily range): BP systolic 127–143; BP diastolic 72–87
[2022-04-17] MEDS: InsuLIN REG 1unit/0.01ml Soln (100units/ml) SC SCH ×4 (06:53→21:47)
[2022-04-17] MEDS: ACCU-CHEK COMFORT CURVE STRIP VI SCH ×4 (06:53→21:43)
[2022-04-17] MEDS: ASPirin 81 mg TAB PO SCH (10:11)
[2022-04-17] MEDS: PIPERACILLIN-TAZOB 2.25GM 50 ML IV SCH ×2 (10:11→22:09)
[2022-04-17] MEDS: DAKINS QUARTER STR 0.125% (NaHypochlorite) 473 ML TOPICAL SOL TOP SCH (10:11)
[2022-04-17 11:42] LABS: Basophils # (auto) 0.1 10 ^3/uL (0-0.2); Basophils % (auto) 1.1 % (0.0-2.0); Eosinophils # (auto) 0.1 10 ^3/uL (0-0.8); Eosinophils % (auto) 1.8 % (0.0-7.0); Hematocrit 29.5 % (41.0-53.0); Hemoglobin 9.5 g/dL (13.5-17.5); Lymphocytes # (auto) 1.1 10 ^3/uL (0.4-5.4); Lymphocytes % (auto) 13.5 % (10.0-50.0); Mean Corpuscular Hgb Conc. 32.1 g/dL (32.0-36.0); Mean Corpuscular Volume 90.4 fL (80.0-100.0); Monocytes # (auto) 0.5 10 ^3/uL (0-1.3); Monocytes % (auto) 5.6 % (0.0-12.0); Neutrophils # (auto) 6.5 10 ^3/uL (1.6-8.6); Nucleated Red Blood Cells % 0.1 %; Red Blood Cells 3.26 10^6/uL (4.5-5.90); Red Cell Distribution Width 16.9 % (11.8-14.3); White Blood Cell 8.3 10^3/uL (4.4-10.8)
[2022-04-17] MEDS ORDERED: LEVO500T31 PO (14:32)
[2022-04-17] MEDS ORDERED: LINE1TAB6 PO (14:32)
[2022-04-17] MEDS: LINEZOLID 600MG TABLET PO SCH ×2 (16:03→22:10)
[2022-04-17] MEDS: Juven Fruit Punch Powder PACKET 28.8gm PO SCH (18:14)
[2022-04-17] MEDS: GABAPENTIN 300 MG CAP PO SCH (18:14)
[2022-04-17] MEDS: AMITRIPTYLINE HCL 25 MG TAB PO SCH (22:09)
[2022-04-17] MEDS: ATORVASTATIN 20 MG TAB PO SCH (22:10)
[2022-04-18 05:00] VITALS: BP 123/78
[2022-04-18] MEDS: ACCU-CHEK COMFORT CURVE STRIP VI SCH ×3 (06:22→17:00)
[2022-04-18] MEDS: InsuLIN REG 1unit/0.01ml Soln (100units/ml) SC SCH ×3 (06:22→17:00)
[2022-04-18] MEDS ORDERED: SODIUM CHL 0.9% 1000 ML BAG XX ONE (07:00)
[2022-04-18 09:09] VITALS: BP 127/76
[2022-04-18] MEDS: Juven Fruit Punch Powder PACKET 28.8gm PO SCH ×2 (10:04→18:19)
[2022-04-18] MEDS: PIPERACILLIN-TAZOB 2.25GM 50 ML IV SCH (10:05)
[2022-04-18] MEDS: ASPirin 81 mg TAB PO SCH (10:05)
[2022-04-18] MEDS: LINEZOLID 600MG TABLET PO SCH (10:05)
[2022-04-18 13:22] VITALS: BP 124/76
[2022-04-18 13:35] VITALS: BP 132/71
[2022-04-18 18:05] VITALS: BP 139/78
[2022-04-18] MEDS: GABAPENTIN 300 MG CAP PO SCH (18:50)
[2022-04-18] MEDS: DAKINS QUARTER STR 0.125% (NaHypochlorite) 473 ML TOPICAL SOL TOP SCH (18:53)
[2022-04-18] MEDS ORDERED: EPOETIN ALFA-EPBX 4,000 UNIT/ML VIAL SC ONE (21:00)
== END 2022-04-18 21:05 | DRG 622 ==
LOC: ER 14:09 → TELE 21:56 → TELE-WESTW 04-08 07:44
PROVIDERS: ADMIT Nurse Practitioner Family; ATTEND Nurse Practitioner Acute Care
PROC: 5A1D70Z Performance of Urinary Filtration, Intermittent, Less than 6 Hours Per Day (ICD-10-PCS; principal; 2022-04-09)
PROC: 5A1D70Z Performance of Urinary Filtration, Intermittent, Less than 6 Hours Per Day (ICD-10-PCS; 2022-04-11)
PROC: 5A1D70Z Performance of Urinary Filtration, Intermittent, Less than 6 Hours Per Day (ICD-10-PCS; 2022-04-13)
PROC: 0JBR0ZZ Excision of Left Foot Subcutaneous Tissue and Fascia, Open Approach (ICD-10-PCS; 2022-04-14)
PROC: 5A1D70Z Performance of Urinary Filtration, Intermittent, Less than 6 Hours Per Day (ICD-10-PCS; 2022-04-15)
PROC: 5A1D70Z Performance of Urinary Filtration, Intermittent, Less than 6 Hours Per Day (ICD-10-PCS; 2022-04-18)
DX: E11.621 Type 2 diabetes mellitus with foot ulcer (principal); E43 Unspecified severe protein-calorie malnutrition; E11.52 Type 2 diabetes mellitus with diabetic peripheral angiopathy with gangrene; I13.2 Hypertensive heart and chronic kidney disease with heart failure and with stage 5 chronic kidney disease, or end stage renal disease; Z16.21 Resistance to vancomycin; Z16.24 Resistance to multiple antibiotics; L97.429 Non-pressure chronic ulcer of left heel and midfoot with unspecified severity; M86.8X7 Other osteomyelitis, ankle and foot; I96 Gangrene, not elsewhere classified; Z20.822 Contact with and (suspected) exposure to COVID-19; S91.302A Unspecified open wound, left foot, initial encounter; E11.69 Type 2 diabetes mellitus with other specified complication; N18.6 End stage renal disease; D63.1 Anemia in chronic kidney disease; E11.628 Type 2 diabetes mellitus with other skin complications; I25.10 Atherosclerotic heart disease of native coronary artery without angina pectoris; B95.2 Enterococcus as the cause of diseases classified elsewhere; E11.22 Type 2 diabetes mellitus with diabetic chronic kidney disease; E78.5 Hyperlipidemia, unspecified; I50.9 Heart failure, unspecified; L08.9 Local infection of the skin and subcutaneous tissue, unspecified; L97.529 Non-pressure chronic ulcer of other part of left foot with unspecified severity; Z79.02 Long term (current) use of antithrombotics/antiplatelets; Z68.25 Body mass index [BMI] 25.0-25.9, adult; Z79.82 Long term (current) use of aspirin; Z79.899 Other long term (current) drug therapy; Z79.84 Long term (current) use of oral hypoglycemic drugs; Z82.49 Family history of ischemic heart disease and other diseases of the circulatory system; Z83.3 Family history of diabetes mellitus; Z95.5 Presence of coronary angioplasty implant and graft; Z99.2 Dependence on renal dialysis; Z88.6 Allergy status to analgesic agent; Z88.8 Allergy status to other drugs, medicaments and biological substances
CPT/HCPCS: 36415; 73630; 73721; 75635; 80048; 80053; 80202; 81001; 82565; 82728; 82962; 83540; 83550; 83605; 83690; 85014; 85018; 85025; 85610; 85730; 86850; 86900; 86901; 87040; 87070; 87075; 87077; 87186; 87205; 90935; 93005; 93925; 94640; 96365; 96367; 96375; G0378; J0696; J1642; J1815; J1956; J2001; J2250; J2405; J2543; J2704; J3490

== ENCOUNTER 2022-05-04 14:53 | Inpatient (IN) | payer MEDICARE, MEDICAID ==
[~2022-05-04] VITALS: Ht 175.3 cm; Wt 82.6 kg
[~2022-05-04 14:53] MED LIST changes: +LEVO500T31 PO; +LINE1TAB6 PO
[2022-05-04 16:02] LABS: Basophils # (auto) 0 10 ^3/uL (0-0.2); Eosinophils # (auto) 0.2 10 ^3/uL (0-0.8); Lymphocytes # (auto) 0.7 10 ^3/uL (0.4-5.4); Monocytes # (auto) 0.4 10 ^3/uL (0-1.3)
[2022-05-04 16:05] LABS: Eosinophils % (auto) 4.1 % (0.0-7.0); Hematocrit 25.7 % (41.0-53.0); Hemoglobin 8.3 g/dL (13.5-17.5); Lymphocytes % (auto) 17.1 % (10.0-50.0); Mean Corpuscular Hemoglobin 29.6 pg (28.0-32.0); Mean Corpuscular Hgb Conc. 32.5 g/dL (32.0-36.0); Mean Corpuscular Volume 91.1 fL (80.0-100.0); Monocytes % (auto) 8.8 % (0.0-12.0); Neutrophils # (auto) 2.9 10 ^3/uL (1.6-8.6); Red Blood Cells 2.82 10^6/uL (4.5-5.90); Red Cell Distribution Width 17.2 % (11.8-14.3); White Blood Cell 4.2 10^3/uL (4.4-10.8)
[2022-05-04 16:19] LABS: Albumin 2.1 g/dL (3.4-5.0); BUN/Creatinine Ratio 9.2; Potassium 3.4 mmol/L (3.5-5.1)
[2022-05-04 16:21] LABS: INR 1.13 (0.9-1.15); Partial Thromboplastin Time 39.5 sec (24.6-33.4)
[2022-05-04 16:28] LABS: Bilirubin, Total 0.5 mg/dL (0.2-1.0)
[2022-05-04] MEDS ORDERED: ALBUMIN 25% 100 ML IV ONE (22:00)
[2022-05-04] MEDS ORDERED: DEXTROSE (50%) 50ML SYRG IV PRN (22:00)
[2022-05-04] MEDS: InsuLIN REG 1unit/0.01ml Soln (100units/ml) SC SCH (22:00)
[2022-05-04] MEDS: ACCU-CHEK COMFORT CURVE STRIP VI SCH (22:00)
[2022-05-04] MEDS ORDERED: DOCUSATE SOD 100 MG CAP PO PRN (22:00)
[2022-05-04] MEDS: SODIUM CHLOR 0.9% PF (SALINE LOCK) 10ML VIAL/SYR IV SCH (22:00)
[2022-05-04] MEDS ORDERED: ONDANSETRON HCL 4 MG/2 ML VIAL IV PRN (22:00)
[2022-05-04] MEDS ORDERED: FAMOTIDINE (10MG/ML) 2ML VL IV SCH (22:00)
[2022-05-04] MEDS ORDERED: ACETAMINOPHEN 325 MG TAB PO PRN (22:00)
[2022-05-04] MEDS ORDERED: NITROGLYCERIN 0.4 MG SL TAB SL PRN (23:30)
[2022-05-05] MEDS ORDERED: cefTRIAXone 1GM/50ML D5W 50 ML IV ONE (02:45)
[2022-05-05] MEDS ORDERED: AZITHROMYCIN 500MG/ 250ML 250 ML IV ONE (02:45)
[2022-05-05] MEDS: ALBUTEROL SULF HFA 90MCG INH 200DOSE IN SCH ×3 (06:00→23:14)
[2022-05-05] MEDS ORDERED: SODIUM CHL 0.9% 1000 ML BAG XX ONE (07:15)
[2022-05-05] MEDS: SODIUM CHLOR 0.9% PF (SALINE LOCK) 10ML VIAL/SYR IV SCH ×3 (07:39→22:44)
[2022-05-05] MEDS: ALBUMIN 25% 100 ML IV SCH ×2 (08:16→09:00)
[2022-05-05] MEDS: ACCU-CHEK COMFORT CURVE STRIP VI SCH ×4 (09:00→22:44)
[2022-05-05] MEDS: InsuLIN REG 1unit/0.01ml Soln (100units/ml) SC SCH ×4 (09:01→23:38)
[2022-05-05] MEDS: cefTRIAXone 1GM/50ML D5W 50 ML IV SCH (10:25)
[2022-05-05] MEDS: AZITHROMYCIN 500MG/ 250ML 250 ML IV SCH (11:20)
[2022-05-05] MEDS: ASCORBIC ACID 500 MG TAB PO SCH (11:21)
[2022-05-05] MEDS: CHOLECALCIFEROL (VITD3) 1,000UNIT=25mCg TAB PO SCH (11:22)
[2022-05-05] MEDS: ZINC SULFATE 220mg CAP or TAB PO SCH (11:23)
[2022-05-05] MEDS: B-COMPLEX W/ C & FOLIC ACID(NEPHROVITE TAB) PO SCH (11:23)
[2022-05-05] MEDS: PANTOPRAZOLE 40 MG TAB PO SCH (11:23)
[2022-05-05 11:48] VITALS: BP 111/57
[2022-05-05 13:12] LABS: Basophils # (auto) 0 10 ^3/uL (0-0.2); Basophils % (auto) 1.1 % (0.0-2.0); Eosinophils # (auto) 0.1 10 ^3/uL (0-0.8); Eosinophils % (auto) 3.7 % (0.0-7.0); Hematocrit 24.3 % (41.0-53.0); Hemoglobin 7.9 g/dL (13.5-17.5); Lymphocytes # (auto) 0.6 10 ^3/uL (0.4-5.4); Lymphocytes % (auto) 19.7 % (10.0-50.0); Mean Corpuscular Hemoglobin 29.4 pg (28.0-32.0); Mean Corpuscular Hgb Conc. 32.3 g/dL (32.0-36.0); Monocytes # (auto) 0.3 10 ^3/uL (0-1.3); Monocytes % (auto) 10.2 % (0.0-12.0); Neutrophils # (auto) 2.1 10 ^3/uL (1.6-8.6); Neutrophils % (auto) 65.3 % (37.0-80.0); Nucleated Red Blood Cells % 0.1 %; Red Blood Cells 2.67 10^6/uL (4.5-5.90); Red Cell Distribution Width 17.3 % (11.8-14.3); White Blood Cell 3.2 10^3/uL (4.4-10.8)
[2022-05-05 13:26] LABS: Albumin 2.5 g/dL (3.4-5.0); Potassium 3.8 mmol/L (3.5-5.1)
[2022-05-05 13:29] LABS: BUN/Creatinine Ratio 8.4; Bilirubin, Total 0.6 mg/dL (0.2-1.0); Total Protein 7.1 g/dL (6.4-8.2)
[2022-05-05] MEDS ORDERED: EPOETIN ALFA-EPBX 4,000 UNIT/ML VIAL SC ONE (21:00)
[2022-05-05 22:00] VITALS: BP 123/47
[2022-05-06 05:00] VITALS: BP 103/57
[2022-05-06] MEDS: SODIUM CHLOR 0.9% PF (SALINE LOCK) 10ML VIAL/SYR IV SCH ×3 (06:05→22:31)
[2022-05-06] MEDS: ALBUTEROL SULF HFA 90MCG INH 200DOSE IN SCH ×3 (06:23→22:00)
[2022-05-06] MEDS: InsuLIN REG 1unit/0.01ml Soln (100units/ml) SC SCH ×4 (07:00→22:39)
[2022-05-06] MEDS: ACCU-CHEK COMFORT CURVE STRIP VI SCH ×4 (07:05→22:30)
[2022-05-06 09:12] VITALS: BP 121/76
[2022-05-06] MEDS: guaiFENesin 200 MG/10 ML UD PO PRN ×2 (10:39→22:31)
[2022-05-06] MEDS: PANTOPRAZOLE 40 MG TAB PO SCH (10:40)
[2022-05-06] MEDS: ASCORBIC ACID 500 MG TAB PO SCH (10:40)
[2022-05-06] MEDS: ZINC SULFATE 220mg CAP or TAB PO SCH (10:40)
[2022-05-06] MEDS: B-COMPLEX W/ C & FOLIC ACID(NEPHROVITE TAB) PO SCH (10:40)
[2022-05-06] MEDS: AZITHROMYCIN 500MG/ 250ML 250 ML IV SCH (10:41)
[2022-05-06] MEDS: cefTRIAXone 1GM/50ML D5W 50 ML IV SCH (12:37)
[2022-05-06] MEDS: CHOLECALCIFEROL (VITD3) 1,000UNIT=25mCg TAB PO SCH (12:37)
[2022-05-06 13:00] VITALS: BP 97/58
[2022-05-06] MEDS ORDERED: LOPERAMIDE 1 mg/7.5ml ORAL soln PO PRN (17:00)
[2022-05-06] MEDS ORDERED: LOPERAMIDE 1 mg/7.5ml ORAL soln PO ONE (17:00)
[2022-05-06 17:27] VITALS: BP 123/51
[2022-05-06 22:00] VITALS: BP 125/68
[2022-05-07 05:00] VITALS: BP 110/73
[2022-05-07] MEDS: InsuLIN REG 1unit/0.01ml Soln (100units/ml) SC SCH ×4 (06:35→22:15)
[2022-05-07] MEDS: SODIUM CHLOR 0.9% PF (SALINE LOCK) 10ML VIAL/SYR IV SCH ×3 (06:35→22:14)
[2022-05-07] MEDS: ACCU-CHEK COMFORT CURVE STRIP VI SCH ×4 (06:36→22:14)
[2022-05-07] MEDS: ALBUTEROL SULF HFA 90MCG INH 200DOSE IN SCH ×3 (07:25→22:15)
[2022-05-07 09:00] VITALS: BP 114/70
[2022-05-07] MEDS: CHOLECALCIFEROL (VITD3) 1,000UNIT=25mCg TAB PO SCH (10:13)
[2022-05-07] MEDS: ASCORBIC ACID 500 MG TAB PO SCH (10:13)
[2022-05-07] MEDS: PANTOPRAZOLE 40 MG TAB PO SCH (10:13)
[2022-05-07] MEDS: ZINC SULFATE 220mg CAP or TAB PO SCH (10:13)
[2022-05-07] MEDS: B-COMPLEX W/ C & FOLIC ACID(NEPHROVITE TAB) PO SCH (10:13)
[2022-05-07] MEDS: cefTRIAXone 1GM/50ML D5W 50 ML IV SCH (10:14)
[2022-05-07] MEDS: AZITHROMYCIN 500MG/ 250ML 250 ML IV SCH (10:14)
[2022-05-07 13:00] VITALS: BP 129/61
[2022-05-07 16:30] VITALS: BP 111/54
[2022-05-07 22:00] VITALS: BP 126/73
[2022-05-07] MEDS: guaiFENesin 200 MG/10 ML UD PO PRN (23:46)
[2022-05-08 05:00] VITALS: BP 144/60
[2022-05-08] MEDS: ALBUTEROL SULF HFA 90MCG INH 200DOSE IN SCH (05:48)
[2022-05-08] MEDS: SODIUM CHLOR 0.9% PF (SALINE LOCK) 10ML VIAL/SYR IV SCH ×2 (06:00→14:00)
[2022-05-08 06:45] LABS: % Iron Saturation 37.8 % (20-55)
[2022-05-08 06:46] LABS: Hematocrit 22.6 % (41.0-53.0); Hemoglobin 7.5 g/dL (13.5-17.5)
[2022-05-08] MEDS ORDERED: SODIUM CHL 0.9% 1000 ML BAG XX ONE (07:00)
[2022-05-08] MEDS: ACCU-CHEK COMFORT CURVE STRIP VI SCH ×3 (07:10→17:00)
[2022-05-08] MEDS: InsuLIN REG 1unit/0.01ml Soln (100units/ml) SC SCH ×3 (07:10→17:00)
[2022-05-08 09:18] VITALS: BP 115/16
[2022-05-08] MEDS: CHOLECALCIFEROL (VITD3) 1,000UNIT=25mCg TAB PO SCH (10:00)
[2022-05-08] MEDS ORDERED: DAKINS QUARTER STR 0.125% (NaHypochlorite) 473 ML TOPICAL SOL TOP SCH (10:00)
[2022-05-08] MEDS: AZITHROMYCIN 500MG/ 250ML 250 ML IV SCH (11:41)
[2022-05-08] MEDS: ZINC SULFATE 220mg CAP or TAB PO SCH (11:42)
[2022-05-08] MEDS: B-COMPLEX W/ C & FOLIC ACID(NEPHROVITE TAB) PO SCH (11:42)
[2022-05-08] MEDS: PANTOPRAZOLE 40 MG TAB PO SCH (11:43)
[2022-05-08] MEDS: ASCORBIC ACID 500 MG TAB PO SCH (11:43)
[2022-05-08] MEDS: cefTRIAXone 1GM/50ML D5W 50 ML IV SCH (11:44)
[2022-05-08] MEDS: guaiFENesin 200 MG/10 ML UD PO PRN (11:45)
[2022-05-08] MEDS ORDERED: LOPERAMIDE 1 mg/7.5ml ORAL soln GT PRN (12:30)
[2022-05-08] MEDS ORDERED: LOPERAMIDE 1 mg/7.5ml ORAL soln GT ONE (12:30)
[2022-05-08 12:55] VITALS: BP 136/52
[2022-05-08 14:04] VITALS: BP 145/85
[2022-05-08 16:58] VITALS: BP 113/60
[2022-05-08] MEDS ORDERED: EPOETIN ALFA-EPBX 4,000 UNIT/ML VIAL SC ONE (21:00)
== END 2022-05-08 19:51 | DRG 177 ==
LOC: EDBD 14:53 → ER 14:53 → TELE 23:25 → TELE-CENTR 05-05 18:43
PROVIDERS: ADMIT Nurse Practitioner Family; ATTEND Family Medicine
PROC: 5A1D70Z Performance of Urinary Filtration, Intermittent, Less than 6 Hours Per Day (ICD-10-PCS; principal; 2022-05-05)
PROC: 5A1D70Z Performance of Urinary Filtration, Intermittent, Less than 6 Hours Per Day (ICD-10-PCS; 2022-05-08)
DX: U07.1 COVID-19 (principal); J12.82 Pneumonia due to coronavirus disease 2019; J96.01 Acute respiratory failure with hypoxia; N18.6 End stage renal disease; D61.818 Other pancytopenia; E46 Unspecified protein-calorie malnutrition; J98.11 Atelectasis; I13.2 Hypertensive heart and chronic kidney disease with heart failure and with stage 5 chronic kidney disease, or end stage renal disease; R04.2 Hemoptysis; I50.9 Heart failure, unspecified; E11.65 Type 2 diabetes mellitus with hyperglycemia; D63.1 Anemia in chronic kidney disease; E11.22 Type 2 diabetes mellitus with diabetic chronic kidney disease; S91.302A Unspecified open wound, left foot, initial encounter; X58.XXXA Exposure to other specified factors, initial encounter; I25.10 Atherosclerotic heart disease of native coronary artery without angina pectoris; F32.A Depression, unspecified; Z20.822 Contact with and (suspected) exposure to COVID-19; E78.00 Pure hypercholesterolemia, unspecified; Z68.26 Body mass index [BMI] 26.0-26.9, adult; Z88.1 Allergy status to other antibiotic agents; Z99.2 Dependence on renal dialysis; Z88.5 Allergy status to narcotic agent; Z82.49 Family history of ischemic heart disease and other diseases of the circulatory system; I25.2 Old myocardial infarction; Z79.82 Long term (current) use of aspirin; Z79.899 Other long term (current) drug therapy; Z83.3 Family history of diabetes mellitus; Z95.1 Presence of aortocoronary bypass graft; Y93.89 Activity, other specified; Y92.89 Other specified places as the place of occurrence of the external cause; Y99.8 Other external cause status
CPT/HCPCS: 36415; 71045; 80053; 82728; 82962; 83540; 83550; 83735; 83880; 85014; 85018; 85025; 85379; 85610; 85730; 86141; 87081; 87426; 90935; 93306; 94640; 96365; 96367; 96375; G0378; J0696; J1642; J1815; P9047

== ENCOUNTER 2022-05-08 22:34 | Inpatient (IN) | payer MEDICARE, MEDICAID ==
[~2022-05-08] VITALS: Ht 172.7 cm; Wt 84.9 kg
[2022-05-08 23:15] LABS: Basophils # (auto) 0 10 ^3/uL (0-0.2); Eosinophils # (auto) 0.2 10 ^3/uL (0-0.8); Hemoglobin 7.2 g/dL (13.5-17.5); Lymphocytes # (auto) 0.8 10 ^3/uL (0.4-5.4); Neutrophils # (auto) 2.6 10 ^3/uL (1.6-8.6); Nucleated Red Blood Cells % 0.1 %; White Blood Cell 4.1 10^3/uL (4.4-10.8)
[2022-05-08 23:18] LABS: Basophils % (auto) 1.1 % (0.0-2.0); Eosinophils % (auto) 5.7 % (0.0-7.0); Hematocrit 21.5 % (41.0-53.0); Lymphocytes % (auto) 18.5 % (10.0-50.0); Mean Corpuscular Hemoglobin 30.2 pg (28.0-32.0); Mean Corpuscular Hgb Conc. 33.5 g/dL (32.0-36.0); Mean Corpuscular Volume 90.1 fL (80.0-100.0); Monocytes # (auto) 0.4 10 ^3/uL (0-1.3); Monocytes % (auto) 10.5 % (0.0-12.0); Neutrophils % (auto) 64.2 % (37.0-80.0); Red Blood Cells 2.38 10^6/uL (4.5-5.90)
[2022-05-08 23:29] LABS: INR 1.3 (0.9-1.15); Partial Thromboplastin Time 38.9 sec (24.6-33.4)
[2022-05-08 23:33] LABS: Albumin 2.3 g/dL (3.4-5.0); Potassium 4.5 mmol/L (3.5-5.1)
[2022-05-08 23:34] LABS: BUN/Creatinine Ratio 7.6
[2022-05-08 23:40] LABS: Bilirubin, Total 0.5 mg/dL (0.2-1.0)
[2022-05-09] MEDS ORDERED: ASPirin 325 MG TAB PO ONE (01:15)
[2022-05-09] MEDS ORDERED: IOHEXOL 350 MG/ML 100ML IJ ONE (01:17)
[2022-05-09] MEDS ORDERED: MORPHINE SULFATE INJ 2 MG/ml SYRG IV PRN (04:30)
[2022-05-09] MEDS ORDERED: DEXTROSE (50%) 50ML SYRG IV PRN (04:30)
[2022-05-09] MEDS ORDERED: ONDANSETRON HCL 4 MG/2 ML VIAL IV PRN (04:30)
[2022-05-09] MEDS ORDERED: NITROGLYCERIN 0.4 MG SL TAB SL PRN (04:30)
[2022-05-09 04:34] VITALS: BP 121/70
[2022-05-09] MEDS: InsuLIN REG 1unit/0.01ml Soln (100units/ml) SC SCH ×4 (07:00→21:41)
[2022-05-09] MEDS: ACCU-CHEK COMFORT CURVE STRIP VI SCH ×4 (07:29→21:36)
[2022-05-09 08:18] LABS: Urine Bacteria NONE SEEN /hpf (None Seen); Urine Blood 2+ /uL (Negative); Urine Specific Gravity 1.017 (1.001-1.035); Urine WBC 2213 /hpf (0 - 3); Urine WBC Clumps PRESENT /hpf (None Seen)
[2022-05-09] MEDS: cefTRIAXone 1GM/50ML D5W 50 ML IV SCH (09:51)
[2022-05-09] MEDS ORDERED: AZITHROMYCIN 500MG/ 250ML 250 ML IV SCH (10:00)
[2022-05-09] MEDS ORDERED: ASPirin 81 mg TAB PO SCH (10:00)
[2022-05-09] MEDS ORDERED: FUROSEMIDE 40 MG TAB PO SCH (10:00)
[2022-05-09] MEDS ORDERED: DAPAGLIFLOZIN 5 MG TAB PO SCH (10:00)
[2022-05-09] MEDS ORDERED: DexAMETHasone SOD PHOS 10MG/1ML VIAL INJ IV SCH (10:00)
[2022-05-09] MEDS ORDERED: amLODIPine BESYLATE 5 MG TAB PO SCH (10:00)
[2022-05-09 11:15] LABS: White Blood Cell 4.7 10^3/uL (4.4-10.8)
[2022-05-09 11:19] LABS: Hematocrit 22.4 % (41.0-53.0); Hemoglobin 7.3 g/dL (13.5-17.5); Mean Corpuscular Hemoglobin 29.6 pg (28.0-32.0); Mean Corpuscular Hgb Conc. 32.8 g/dL (32.0-36.0); Mean Corpuscular Volume 90.3 fL (80.0-100.0); Red Blood Cells 2.47 10^6/uL (4.5-5.90); Red Cell Distribution Width 17.6 % (11.8-14.3)
[2022-05-09 11:22] LABS: Band Neutrophils % (manual) 0; Basophils % (manual) 0 (0.0-2.0); Metamyelocytes % 0; Myelocytes % 0; Promyelocytes % 0; Reactive Lymphocytes 0
[2022-05-09 11:31] LABS: Albumin 2.3 g/dL (3.4-5.0); Calcium 8.2 mg/dL (8.5-10.1); Potassium 4.5 mmol/L (3.5-5.1)
[2022-05-09 11:36] LABS: Bilirubin, Total 0.6 mg/dL (0.2-1.0); Total Protein 7.1 g/dL (6.4-8.2)
[2022-05-09] MEDS: CARVEDILOL 12.5 MG TAB PO SCH ×2 (12:06→21:35)
[2022-05-09] MEDS: PANTOPRAZOLE 40 MG TAB PO SCH (12:06)
[2022-05-09] MEDS: SACUBITRIL-VALSARTAN 24mg/26mg TAB PO SCH ×2 (12:10→21:36)
[2022-05-09] MEDS ORDERED: FUROSEMIDE 100 MG/10ML VIAL IV ONE (12:30)
[2022-05-09] MEDS ORDERED: LEVOTHYROXINE SODIUM 88 MCG TAB PO ONE (12:30)
[2022-05-09] MEDS ORDERED: REMDESIVIR PER PHARMACY 0 ML IV SCH (12:45)
[2022-05-09 13:05] LABS: Blast Cells 1; Eosinophils % (manual) 5 (0-7); Lymphocytes % (manual) 22 (10.0-50.0); Monocytes % (manual) 7 (0-12)
[2022-05-09] MEDS: ALBUTEROL SULF 2.5 MG/0.5ML(0.5%) NEB SOLN NEB PRN ×2 (14:05→23:48)
[2022-05-09] MEDS: IPRATROPIUM BROM 0.5 MG/2.5ML INH SOL NEB SCH ×2 (14:05→23:48)
[2022-05-09] MEDS ORDERED: REMDESIVIR 100mg 100 MG in SODIUM CHL 0.9% 230 ML IV ONE (17:00)
[2022-05-09 18:56] VITALS: BP 127/75
[2022-05-09] MEDS: TEMAZEPAM 15 MG CAP PO PRN (21:36)
[2022-05-09] MEDS: ATORVASTATIN 20 MG TAB PO SCH (21:36)
[2022-05-09] MEDS: HEPARIN SODIUM (PORCINE) 5000 UNITS/ML 1ML VIAL SC SCH (21:41)
[2022-05-09 22:00] VITALS: BP 98/53
[2022-05-10] VITALS (12 sets, daily range): BP systolic 84–115; BP diastolic 44–86
[2022-05-10 05:51] LABS: Albumin 1.9 g/dL (3.4-5.0); Magnesium 2.1 mg/dL (1.6-2.6)
[2022-05-10] MEDS: ACCU-CHEK COMFORT CURVE STRIP VI SCH ×4 (05:53→23:01)
[2022-05-10] MEDS: LEVOTHYROXINE SODIUM 88 MCG TAB PO SCH (05:53)
[2022-05-10 05:54] LABS: Bilirubin, Total 0.5 mg/dL (0.2-1.0)
[2022-05-10] MEDS: InsuLIN REG 1unit/0.01ml Soln (100units/ml) SC SCH ×4 (05:54→23:02)
[2022-05-10] MEDS: IPRATROPIUM BROM 0.5 MG/2.5ML INH SOL NEB SCH (06:01)
[2022-05-10] MEDS: ALBUTEROL SULF 2.5 MG/0.5ML(0.5%) NEB SOLN NEB PRN (06:01)
[2022-05-10 06:02] LABS: Basophils # (auto) 0 10 ^3/uL (0-0.2); Basophils % (auto) 0.5 % (0.0-2.0); Eosinophils # (auto) 0 10 ^3/uL (0-0.8); Eosinophils % (auto) 0.1 % (0.0-7.0); Hematocrit 22.3 % (41.0-53.0); Hemoglobin 7.5 g/dL (13.5-17.5); Lymphocytes # (auto) 0.5 10 ^3/uL (0.4-5.4); Lymphocytes % (auto) 13.2 % (10.0-50.0); Mean Corpuscular Hemoglobin 30.8 pg (28.0-32.0); Mean Corpuscular Hgb Conc. 33.6 g/dL (32.0-36.0); Mean Corpuscular Volume 91.6 fL (80.0-100.0); Monocytes # (auto) 0.3 10 ^3/uL (0-1.3); Monocytes % (auto) 7.3 % (0.0-12.0); Neutrophils # (auto) 2.8 10 ^3/uL (1.6-8.6); Neutrophils % (auto) 78.9 % (37.0-80.0); Nucleated Red Blood Cells % 0.3 %; Red Blood Cells 2.44 10^6/uL (4.5-5.90); Red Cell Distribution Width 17.4 % (11.8-14.3); White Blood Cell 3.5 10^3/uL (4.4-10.8)
[2022-05-10] MEDS ORDERED: SODIUM CHL 0.9% 1000 ML BAG XX ONE (07:00)
[2022-05-10] MEDS: cefTRIAXone 1GM/50ML D5W 50 ML IV SCH (09:22)
[2022-05-10] MEDS: SACUBITRIL-VALSARTAN 24mg/26mg TAB PO SCH ×2 (11:12→22:27)
[2022-05-10] MEDS: HEPARIN SODIUM (PORCINE) 5000 UNITS/ML 1ML VIAL SC SCH ×2 (11:12→22:00)
[2022-05-10] MEDS: CARVEDILOL 12.5 MG TAB PO SCH ×3 (11:12→22:00)
[2022-05-10] MEDS: FUROSEMIDE 100 MG/10ML VIAL IV SCH (11:15)
[2022-05-10] MEDS: DOXYCYCLINE 100 MG TAB/CAP PO SCH ×2 (11:42→22:00)
[2022-05-10] MEDS: ASPirin 81 mg TAB PO SCH (11:42)
[2022-05-10] MEDS: PANTOPRAZOLE 40 MG TAB PO SCH (11:42)
[2022-05-10] MEDS: DAKINS QUARTER STR 0.125% (NaHypochlorite) 473 ML TOPICAL SOL TOP SCH (15:30)
[2022-05-10] MEDS ORDERED: MIDODRINE HCL 10 MG TAB PO ONE (15:45)
[2022-05-10] MEDS ORDERED: ALBUMIN 25% 100 ML IV ONE (17:30)
[2022-05-10] MEDS: MIDODRINE HCL 10 MG TAB PO SCH (17:39)
[2022-05-10] MEDS: REMDESIVIR 100mg 50 MG in SODIUM CHL 0.9% 90 ML IV SCH (19:30)
[2022-05-10] MEDS ORDERED: EPOETIN ALFA-EPBX 10,000 UNIT/1ML VIAL SC ONE (21:00)
[2022-05-10] MEDS: ATORVASTATIN 20 MG TAB PO SCH (22:27)
[2022-05-10] MEDS: ALBUTEROL SULF HFA 90MCG INH 200DOSE IN SCH (22:29)
[2022-05-11] MEDS: guaiFENesin-DM 100/10mg/5ml SYR PO PRN ×3 (01:08→22:04)
[2022-05-11 05:00] VITALS: BP 104/64
[2022-05-11 06:37] LABS: Calcium 8.3 mg/dL (8.5-10.1); Potassium 3.9 mmol/L (3.5-5.1)
[2022-05-11 06:43] LABS: Albumin 2.5 g/dL (3.4-5.0); Bilirubin, Total 0.6 mg/dL (0.2-1.0); Total Protein 7.1 g/dL (6.4-8.2)
[2022-05-11] MEDS: InsuLIN REG 1unit/0.01ml Soln (100units/ml) SC SCH ×4 (06:55→22:05)
[2022-05-11] MEDS: ACCU-CHEK COMFORT CURVE STRIP VI SCH ×4 (06:55→22:05)
[2022-05-11] MEDS: LEVOTHYROXINE SODIUM 88 MCG TAB PO SCH (07:29)
[2022-05-11] MEDS: ALBUTEROL SULF HFA 90MCG INH 200DOSE IN SCH ×3 (07:30→21:48)
[2022-05-11] MEDS: MIDODRINE HCL 10 MG TAB PO SCH ×3 (07:30→18:13)
[2022-05-11 09:00] VITALS: BP 125/70
[2022-05-11] MEDS: cefTRIAXone 1GM/50ML D5W 50 ML IV SCH (09:00)
[2022-05-11] MEDS: FUROSEMIDE 100 MG/10ML VIAL IV SCH (09:20)
[2022-05-11] MEDS: DOXYCYCLINE 100 MG TAB/CAP PO SCH ×2 (09:21→22:00)
[2022-05-11] MEDS: SACUBITRIL-VALSARTAN 24mg/26mg TAB PO SCH ×2 (09:21→22:04)
[2022-05-11] MEDS: HEPARIN SODIUM (PORCINE) 5000 UNITS/ML 1ML VIAL SC SCH ×2 (09:21→22:00)
[2022-05-11] MEDS: CARVEDILOL 12.5 MG TAB PO SCH (09:21)
[2022-05-11] MEDS: PANTOPRAZOLE 40 MG TAB PO SCH (09:27)
[2022-05-11] MEDS: FLORASTOR (S. BOULARDII) 250 MG CAP PO SCH (09:27)
[2022-05-11] MEDS: ASPirin 81 mg TAB PO SCH (09:27)
[2022-05-11] MEDS ORDERED: ALBUAER3 IN (11:56)
[2022-05-11] MEDS ORDERED: PANT40TA2 PO (11:56)
[2022-05-11] MEDS ORDERED: ZINC220C8 PO (11:56)
[2022-05-11] MEDS ORDERED: ACET-1156 PO (11:56)
[2022-05-11] MEDS ORDERED: B-COTAB10 PO (11:56)
[2022-05-11] MEDS ORDERED: MAGN400S25 PO (11:56)
[2022-05-11] MEDS ORDERED: ONDA-144 PO (11:56)
[2022-05-11] MEDS ORDERED: GUAI-41 PO (11:56)
[2022-05-11] MEDS ORDERED: BISA10SU45 RE (11:56)
[2022-05-11] MEDS ORDERED: LOPE1TAB9 PO (11:56)
[2022-05-11] MEDS ORDERED: DOCU-94 PO (11:56)
[2022-05-11] MEDS ORDERED: ASCO500T11 PO (11:56)
[2022-05-11] MEDS ORDERED: INSREG3 SC (11:56)
[2022-05-11] MEDS ORDERED: CEFT1INJ17 IV (11:56)
[2022-05-11] MEDS ORDERED: CHOL1TAB30 PO (11:56)
[2022-05-11 13:00] VITALS: BP 108/62
[2022-05-11] MEDS: DAKINS QUARTER STR 0.125% (NaHypochlorite) 473 ML TOPICAL SOL TOP SCH (13:22)
[2022-05-11] MEDS: REMDESIVIR 100mg 50 MG in SODIUM CHL 0.9% 90 ML IV SCH (13:48)
[2022-05-11 17:00] VITALS: BP 120/76
[2022-05-11 18:31] LABS: INR 1.34 (0.9-1.15); Partial Thromboplastin Time 41.8 sec (24.6-33.4)
[2022-05-11 22:00] VITALS: BP 115/52
[2022-05-11] MEDS: CARVEDILOL 3.125 MG TAB PO SCH (22:00)
[2022-05-11] MEDS: ATORVASTATIN 20 MG TAB PO SCH (22:04)
[2022-05-12] VITALS (7 sets, daily range): BP systolic 115–146; BP diastolic 52–83
[2022-05-12] MEDS: MIDODRINE HCL 10 MG TAB PO SCH ×3 (06:00→17:21)
[2022-05-12] MEDS: ALBUTEROL SULF HFA 90MCG INH 200DOSE IN SCH ×3 (06:59→19:42)
[2022-05-12] MEDS ORDERED: SODIUM CHL 0.9% 1000 ML BAG XX ONE (07:00)
[2022-05-12] MEDS: InsuLIN REG 1unit/0.01ml Soln (100units/ml) SC SCH ×4 (07:00→21:01)
[2022-05-12] MEDS: LEVOTHYROXINE SODIUM 88 MCG TAB PO SCH (07:00)
[2022-05-12] MEDS: ACCU-CHEK COMFORT CURVE STRIP VI SCH ×4 (07:11→21:01)
[2022-05-12] MEDS: cefTRIAXone 1GM/50ML D5W 50 ML IV SCH (09:00)
[2022-05-12] MEDS: SACUBITRIL-VALSARTAN 24mg/26mg TAB PO SCH ×2 (10:00→20:45)
[2022-05-12] MEDS: ASPirin 81 mg TAB PO SCH (10:00)
[2022-05-12] MEDS: PANTOPRAZOLE 40 MG TAB PO SCH (10:00)
[2022-05-12] MEDS: FLORASTOR (S. BOULARDII) 250 MG CAP PO SCH (10:00)
[2022-05-12] MEDS: CARVEDILOL 3.125 MG TAB PO SCH ×2 (10:00→21:00)
[2022-05-12] MEDS: HEPARIN SODIUM (PORCINE) 5000 UNITS/ML 1ML VIAL SC SCH ×2 (10:00→21:01)
[2022-05-12] MEDS: DAKINS QUARTER STR 0.125% (NaHypochlorite) 473 ML TOPICAL SOL TOP SCH (10:00)
[2022-05-12] MEDS: FUROSEMIDE 100 MG/10ML VIAL IV SCH (10:00)
[2022-05-12] MEDS: DOXYCYCLINE 100 MG TAB/CAP PO SCH ×2 (10:00→21:01)
[2022-05-12 11:19] LABS: Basophils # (auto) 0 10 ^3/uL (0-0.2); Basophils % (auto) 0.9 % (0.0-2.0); Eosinophils # (auto) 0.2 10 ^3/uL (0-0.8); Hematocrit 26.1 % (41.0-53.0); Hemoglobin 8.5 g/dL (13.5-17.5); Lymphocytes # (auto) 0.8 10 ^3/uL (0.4-5.4); Lymphocytes % (auto) 22.8 % (10.0-50.0); Mean Corpuscular Hemoglobin 28.9 pg (28.0-32.0); Mean Corpuscular Hgb Conc. 32.6 g/dL (32.0-36.0); Mean Corpuscular Volume 88.6 fL (80.0-100.0); Monocytes # (auto) 0.2 10 ^3/uL (0-1.3); Monocytes % (auto) 4.3 % (0.0-12.0); Neutrophils # (auto) 2.4 10 ^3/uL (1.6-8.6); Nucleated Red Blood Cells % 0.5 %; Red Blood Cells 2.95 10^6/uL (4.5-5.90); Red Cell Distribution Width 18.2 % (11.8-14.3); White Blood Cell 3.6 10^3/uL (4.4-10.8)
[2022-05-12 11:29] LABS: Albumin 2.3 g/dL (3.4-5.0); Potassium 3.9 mmol/L (3.5-5.1)
[2022-05-12 11:33] LABS: BUN/Creatinine Ratio 10.2; Bilirubin, Total 0.8 mg/dL (0.2-1.0); Total Protein 6.5 g/dL (6.4-8.2)
[2022-05-12] MEDS ORDERED: BUPIVACAINE W/ EPINEPH 0.25% INJ 50ML MDV ONE (11:58)
[2022-05-12] MEDS ORDERED: LIDOCAINE 1%HCL (LOCAL ANESTH) 10 ML MDV ONE (11:58)
[2022-05-12] MEDS ORDERED: GLYCOPYRROLATE 0.2 MG/ML 1ML VIAL ONE (12:13)
[2022-05-12] MEDS ORDERED: KETAMINE HCL 10 ML ONE (12:13)
[2022-05-12] MEDS ORDERED: ONDANSETRON HCL 4 MG/2 ML VIAL ONE (12:13)
[2022-05-12] MEDS ORDERED: MIDAZOLAM HCL 2MG/2ML 2ml VIAL (1mg/ml) ONE (12:13)
[2022-05-12] MEDS ORDERED: HYDROmorphone HCL 2 MG/ML VL/or syr IV PRN (13:15)
[2022-05-12] MEDS ORDERED: ACCU-CHEK COMFORT CURVE STRIP VI ONE (13:15)
[2022-05-12] MEDS ORDERED: ONDANSETRON HCL 4 MG/2 ML VIAL IV PRN (13:15)
[2022-05-12] MEDS: REMDESIVIR 100mg 50 MG in SODIUM CHL 0.9% 90 ML IV SCH (17:15)
[2022-05-12] MEDS: ATORVASTATIN 20 MG TAB PO SCH (20:45)
[2022-05-12] MEDS ORDERED: EPOETIN ALFA-EPBX 10,000 UNIT/1ML VIAL SC ONE (21:00)
[2022-05-13] VITALS (8 sets, daily range): BP systolic 81–124; BP diastolic 50–91
[2022-05-13] MEDS: guaiFENesin-DM 100/10mg/5ml SYR PO PRN ×2 (00:14→18:10)
[2022-05-13] MEDS: TEMAZEPAM 15 MG CAP PO PRN (00:27)
[2022-05-13 05:42] LABS: Basophils # (auto) 0.1 10 ^3/uL (0-0.2); Basophils % (auto) 1.1 % (0.0-2.0); Eosinophils # (auto) 0.2 10 ^3/uL (0-0.8); Eosinophils % (auto) 4.5 % (0.0-7.0); Hemoglobin 8.2 g/dL (13.5-17.5); Neutrophils # (auto) 3.3 10 ^3/uL (1.6-8.6)
[2022-05-13 05:44] LABS: Hematocrit 24.1 % (41.0-53.0); Lymphocytes % (auto) 19.9 % (10.0-50.0); Mean Corpuscular Hemoglobin 29.9 pg (28.0-32.0); Mean Corpuscular Volume 87.7 fL (80.0-100.0); Monocytes # (auto) 0.4 10 ^3/uL (0-1.3); Monocytes % (auto) 8.9 % (0.0-12.0); Neutrophils % (auto) 65.6 % (37.0-80.0); Nucleated Red Blood Cells % 0.2 %; Red Blood Cells 2.75 10^6/uL (4.5-5.90); Red Cell Distribution Width 18.1 % (11.8-14.3)
[2022-05-13 06:05] LABS: Albumin 2.1 g/dL (3.4-5.0); Calcium 7.9 mg/dL (8.5-10.1); Potassium 4.2 mmol/L (3.5-5.1)
[2022-05-13 06:08] LABS: BUN/Creatinine Ratio 8.7
[2022-05-13 06:11] LABS: Bilirubin, Total 0.6 mg/dL (0.2-1.0); Total Protein 6.4 g/dL (6.4-8.2)
[2022-05-13] MEDS: LEVOTHYROXINE SODIUM 88 MCG TAB PO SCH (06:35)
[2022-05-13] MEDS: MIDODRINE HCL 10 MG TAB PO SCH ×3 (06:35→18:10)
[2022-05-13] MEDS: InsuLIN REG 1unit/0.01ml Soln (100units/ml) SC SCH ×2 (06:46→12:06)
[2022-05-13] MEDS: ACCU-CHEK COMFORT CURVE STRIP VI SCH ×4 (06:47→22:25)
[2022-05-13] MEDS: cefTRIAXone 1GM/50ML D5W 50 ML IV SCH (09:00)
[2022-05-13] MEDS: SACUBITRIL-VALSARTAN 24mg/26mg TAB PO SCH ×2 (12:01→22:24)
[2022-05-13] MEDS: FLORASTOR (S. BOULARDII) 250 MG CAP PO SCH (12:03)
[2022-05-13] MEDS: ASPirin 81 mg TAB PO SCH (12:04)
[2022-05-13] MEDS: HEPARIN SODIUM (PORCINE) 5000 UNITS/ML 1ML VIAL SC SCH ×2 (12:07→22:26)
[2022-05-13] MEDS: DAKINS QUARTER STR 0.125% (NaHypochlorite) 473 ML TOPICAL SOL TOP SCH (12:07)
[2022-05-13] MEDS: DOXYCYCLINE 100 MG TAB/CAP PO SCH ×2 (12:08→22:25)
[2022-05-13] MEDS: CARVEDILOL 3.125 MG TAB PO SCH ×2 (12:08→22:00)
[2022-05-13] MEDS: FUROSEMIDE 100 MG/10ML VIAL IV SCH (12:12)
[2022-05-13] MEDS: PANTOPRAZOLE 40 MG TAB PO SCH (12:19)
[2022-05-13] MEDS ORDERED: cefTRIAXone 1GM/50ML D5W 50 ML IV ONE (12:45)
[2022-05-13] MEDS: ALBUTEROL SULF HFA 90MCG INH 200DOSE IN SCH ×3 (15:40→21:52)
[2022-05-13] MEDS: REMDESIVIR 100mg 50 MG in SODIUM CHL 0.9% 90 ML IV SCH (17:00)
[2022-05-13] MEDS ORDERED: SODIUM CHLORIDE 0.9% 500 ML IV ONE (18:00)
[2022-05-13] MEDS: ACETAMINOPHEN 325 MG TAB PO PRN (18:10)
[2022-05-13 19:48] LABS: Basophils # (auto) 0.1 10 ^3/uL (0-0.2); Basophils % (auto) 1.2 % (0.0-2.0); Eosinophils # (auto) 0.3 10 ^3/uL (0-0.8); Eosinophils % (auto) 4.5 % (0.0-7.0); Hematocrit 25.6 % (41.0-53.0); Hemoglobin 8.5 g/dL (13.5-17.5); Lymphocytes # (auto) 1.2 10 ^3/uL (0.4-5.4); Mean Corpuscular Hgb Conc. 33.3 g/dL (32.0-36.0); Monocytes # (auto) 0.5 10 ^3/uL (0-1.3); Monocytes % (auto) 8.3 % (0.0-12.0); Neutrophils # (auto) 3.6 10 ^3/uL (1.6-8.6); Nucleated Red Blood Cells % 0.3 %; Red Blood Cells 2.84 10^6/uL (4.5-5.90); Red Cell Distribution Width 18.3 % (11.8-14.3); White Blood Cell 5.6 10^3/uL (4.4-10.8)
[2022-05-13 20:09] LABS: Albumin 2.2 g/dL (3.4-5.0); Calcium 7.6 mg/dL (8.5-10.1); Potassium 4.1 mmol/L (3.5-5.1)
[2022-05-13 20:12] LABS: BUN/Creatinine Ratio 9.6; Bilirubin, Total 0.5 mg/dL (0.2-1.0); Total Protein 6.2 g/dL (6.4-8.2)
[2022-05-13 20:14] LABS: Lactic Acid w/Reflex 3.1 mmol/L (0.4-2.0)
[2022-05-13] MEDS: ATORVASTATIN 20 MG TAB PO SCH (22:25)
[2022-05-14] MEDS: guaiFENesin-DM 100/10mg/5ml SYR PO PRN ×2 (00:30→06:45)
[2022-05-14] MEDS: ACETAMINOPHEN 325 MG TAB PO PRN ×2 (00:30→06:40)
[2022-05-14 05:28] VITALS: BP 114/69
[2022-05-14] MEDS: MIDODRINE HCL 10 MG TAB PO SCH ×3 (06:00→18:00)
[2022-05-14] MEDS: LEVOTHYROXINE SODIUM 88 MCG TAB PO SCH (06:41)
[2022-05-14] MEDS: ALBUTEROL SULF HFA 90MCG INH 200DOSE IN SCH ×3 (07:06→21:54)
[2022-05-14 09:00] VITALS: BP 112/55
[2022-05-14] MEDS: cefTRIAXone 1GM/50ML D5W 50 ML IV SCH (09:03)
[2022-05-14] MEDS: FUROSEMIDE 100 MG/10ML VIAL IV SCH (09:03)
[2022-05-14] MEDS: ASPirin 81 mg TAB PO SCH (09:03)
[2022-05-14] MEDS: CARVEDILOL 3.125 MG TAB PO SCH ×2 (09:03→22:00)
[2022-05-14] MEDS: HEPARIN SODIUM (PORCINE) 5000 UNITS/ML 1ML VIAL SC SCH ×2 (09:04→22:33)
[2022-05-14] MEDS: SACUBITRIL-VALSARTAN 24mg/26mg TAB PO SCH ×2 (09:04→22:09)
[2022-05-14] MEDS: DOXYCYCLINE 100 MG TAB/CAP PO SCH ×2 (09:04→22:09)
[2022-05-14] MEDS: FLORASTOR (S. BOULARDII) 250 MG CAP PO SCH (09:04)
[2022-05-14] MEDS: PANTOPRAZOLE 40 MG TAB PO SCH (09:04)
[2022-05-14] MEDS: DAKINS QUARTER STR 0.125% (NaHypochlorite) 473 ML TOPICAL SOL TOP SCH (09:05)
[2022-05-14 13:00] VITALS: BP 111/62
[2022-05-14 17:18] VITALS: BP 112/55
[2022-05-14 22:00] VITALS: BP 114/67
[2022-05-14] MEDS: ATORVASTATIN 20 MG TAB PO SCH (22:09)
[2022-05-14] MEDS: TEMAZEPAM 15 MG CAP PO PRN (23:22)
[2022-05-15 05:00] VITALS: BP 119/69
[2022-05-15] MEDS: MIDODRINE HCL 10 MG TAB PO SCH ×3 (06:00→17:49)
[2022-05-15] MEDS: ALBUTEROL SULF HFA 90MCG INH 200DOSE IN SCH ×3 (06:42→19:00)
[2022-05-15] MEDS: LEVOTHYROXINE SODIUM 88 MCG TAB PO SCH (06:43)
[2022-05-15] MEDS ORDERED: SODIUM CHL 0.9% 1000 ML BAG XX ONE (07:00)
[2022-05-15 09:00] VITALS: BP 117/64
[2022-05-15] MEDS: cefTRIAXone 1GM/50ML D5W 50 ML IV SCH (10:39)
[2022-05-15] MEDS: PANTOPRAZOLE 40 MG TAB PO SCH (10:40)
[2022-05-15] MEDS: FUROSEMIDE 100 MG/10ML VIAL IV SCH (10:40)
[2022-05-15] MEDS: ASPirin 81 mg TAB PO SCH (10:40)
[2022-05-15] MEDS: SACUBITRIL-VALSARTAN 24mg/26mg TAB PO SCH (10:40)
[2022-05-15] MEDS: CARVEDILOL 3.125 MG TAB PO SCH ×2 (10:41→22:16)
[2022-05-15] MEDS: DAKINS QUARTER STR 0.125% (NaHypochlorite) 473 ML TOPICAL SOL TOP SCH (10:43)
[2022-05-15] MEDS: HEPARIN SODIUM (PORCINE) 5000 UNITS/ML 1ML VIAL SC SCH ×2 (10:43→22:17)
[2022-05-15 10:55] VITALS: BP 119/69
[2022-05-15 12:35] VITALS: BP 131/76
[2022-05-15 16:57] VITALS: BP 132/78
[2022-05-15] MEDS: ONDANSETRON HCL 4 MG/2 ML VIAL IV PRN (17:32)
[2022-05-15] MEDS: Pro-Stat SF 30ml Vanilla PO SCH (17:32)
[2022-05-15] MEDS ORDERED: EPOETIN ALFA-EPBX 4,000 UNIT/ML VIAL SC ONE (21:00)
[2022-05-15 22:00] VITALS: BP 119/60
[2022-05-15] MEDS: ATORVASTATIN 20 MG TAB PO SCH (22:15)
[2022-05-15] MEDS: TEMAZEPAM 15 MG CAP PO PRN (22:15)
[2022-05-16 05:00] VITALS: BP 131/63
[2022-05-16] MEDS: ALBUTEROL SULF HFA 90MCG INH 200DOSE IN SCH ×3 (06:19→21:04)
[2022-05-16] MEDS: LEVOTHYROXINE SODIUM 88 MCG TAB PO SCH (06:42)
[2022-05-16] MEDS: MIDODRINE HCL 10 MG TAB PO SCH ×3 (06:42→18:00)
[2022-05-16] MEDS: Pro-Stat SF 30ml Vanilla PO SCH ×2 (08:00→18:00)
[2022-05-16 09:00] VITALS: BP 116/64
[2022-05-16 09:56] LABS: Basophils # (auto) 0.1 10 ^3/uL (0-0.2); Hematocrit 22.5 % (41.0-53.0); Lymphocytes # (auto) 1.1 10 ^3/uL (0.4-5.4); Lymphocytes % (auto) 20.6 % (10.0-50.0); Red Blood Cells 2.49 10^6/uL (4.5-5.90); White Blood Cell 5.3 10^3/uL (4.4-10.8)
[2022-05-16 10:00] LABS: Basophils % (auto) 1.2 % (0.0-2.0); Eosinophils # (auto) 0.4 10 ^3/uL (0-0.8); Eosinophils % (auto) 6.6 % (0.0-7.0); Hemoglobin 7.6 g/dL (13.5-17.5); Mean Corpuscular Hemoglobin 30.3 pg (28.0-32.0); Mean Corpuscular Hgb Conc. 33.5 g/dL (32.0-36.0); Mean Corpuscular Volume 90.5 fL (80.0-100.0); Monocytes # (auto) 0.5 10 ^3/uL (0-1.3); Monocytes % (auto) 8.5 % (0.0-12.0); Neutrophils # (auto) 3.4 10 ^3/uL (1.6-8.6); Neutrophils % (auto) 63.1 % (37.0-80.0); Nucleated Red Blood Cells % 0.2 %; Red Cell Distribution Width 18.5 % (11.8-14.3)
[2022-05-16] MEDS: CARVEDILOL 3.125 MG TAB PO SCH ×2 (10:00→22:00)
[2022-05-16] MEDS: Juven Fruit Punch Powder PACKET 28.8gm PO SCH (10:00)
[2022-05-16] MEDS: DAKINS QUARTER STR 0.125% (NaHypochlorite) 473 ML TOPICAL SOL TOP SCH (10:00)
[2022-05-16 10:05] LABS: Albumin 2.1 g/dL (3.4-5.0); Calcium 7.8 mg/dL (8.5-10.1); Potassium 3.8 mmol/L (3.5-5.1)
[2022-05-16 10:12] LABS: BUN/Creatinine Ratio 8.4; Bilirubin, Total 0.6 mg/dL (0.2-1.0); Total Protein 5.9 g/dL (6.4-8.2)
[2022-05-16] MEDS: cefTRIAXone 1GM/50ML D5W 50 ML IV SCH (10:24)
[2022-05-16] MEDS: PANTOPRAZOLE 40 MG TAB PO SCH (10:25)
[2022-05-16] MEDS: ASPirin 81 mg TAB PO SCH (10:25)
[2022-05-16] MEDS: FUROSEMIDE 100 MG/10ML VIAL IV SCH (10:47)
[2022-05-16] MEDS: HEPARIN SODIUM (PORCINE) 5000 UNITS/ML 1ML VIAL SC SCH ×2 (12:30→22:19)
[2022-05-16 13:00] VITALS: BP 122/63
[2022-05-16 17:00] VITALS: BP 139/70
[2022-05-16 22:00] VITALS: BP 130/75
[2022-05-16] MEDS: ATORVASTATIN 20 MG TAB PO SCH (22:18)
[2022-05-17] MEDS: TEMAZEPAM 15 MG CAP PO PRN ×2 (01:09→21:38)
[2022-05-17 05:00] VITALS: BP 114/65
[2022-05-17] MEDS: ALBUTEROL SULF HFA 90MCG INH 200DOSE IN SCH ×3 (06:26→22:34)
[2022-05-17] MEDS: MIDODRINE HCL 10 MG TAB PO SCH ×3 (06:40→18:00)
[2022-05-17] MEDS: LEVOTHYROXINE SODIUM 88 MCG TAB PO SCH (06:49)
[2022-05-17] MEDS ORDERED: SODIUM CHL 0.9% 1000 ML BAG XX ONE (07:00)
[2022-05-17] MEDS: Pro-Stat SF 30ml Vanilla PO SCH ×2 (08:00→18:00)
[2022-05-17 08:50] VITALS: BP 149/75
[2022-05-17] MEDS: Juven Fruit Punch Powder PACKET 28.8gm PO SCH (10:00)
[2022-05-17] MEDS: cefTRIAXone 1GM/50ML D5W 50 ML IV SCH (11:22)
[2022-05-17] MEDS: FUROSEMIDE 100 MG/10ML VIAL IV SCH (11:23)
[2022-05-17] MEDS: HEPARIN SODIUM (PORCINE) 5000 UNITS/ML 1ML VIAL SC SCH ×2 (11:24→21:39)
[2022-05-17] MEDS: ASPirin 81 mg TAB PO SCH (11:24)
[2022-05-17] MEDS: PANTOPRAZOLE 40 MG TAB PO SCH (11:24)
[2022-05-17] MEDS: CARVEDILOL 3.125 MG TAB PO SCH ×2 (11:25→21:39)
[2022-05-17 12:50] VITALS: BP 132/73
[2022-05-17] MEDS: LINEZOLID 600MG/300ML 300 ML IV SCH ×2 (14:22→21:38)
[2022-05-17] MEDS: DAKINS QUARTER STR 0.125% (NaHypochlorite) 473 ML TOPICAL SOL TOP SCH (16:00)
[2022-05-17 16:50] VITALS: BP 125/77
[2022-05-17] MEDS ORDERED: EPOETIN ALFA-EPBX 10,000 UNIT/1ML VIAL SC ONE (21:00)
[2022-05-17 21:37] VITALS: BP 124/63
[2022-05-17] MEDS: ATORVASTATIN 20 MG TAB PO SCH (21:38)
[2022-05-18] MEDS: ONDANSETRON HCL 4 MG/2 ML VIAL IV PRN (01:33)
[2022-05-18 05:45] VITALS: BP_SYST 104; BP_SYST 114; BP_DIAS 47; BP_DIAS 73
[2022-05-18] MEDS: MIDODRINE HCL 10 MG TAB PO SCH ×3 (05:51→18:00)
[2022-05-18] MEDS: LEVOTHYROXINE SODIUM 88 MCG TAB PO SCH (06:26)
[2022-05-18] MEDS: ALBUTEROL SULF HFA 90MCG INH 200DOSE IN SCH ×3 (07:32→19:55)
[2022-05-18 08:00] VITALS: BP 118/71
[2022-05-18] MEDS: Pro-Stat SF 30ml Vanilla PO SCH ×2 (08:08→18:06)
[2022-05-18] MEDS: cefTRIAXone 1GM/50ML D5W 50 ML IV SCH (09:00)
[2022-05-18] MEDS: ASPirin 81 mg TAB PO SCH (10:00)
[2022-05-18] MEDS: Juven Fruit Punch Powder PACKET 28.8gm PO SCH (10:00)
[2022-05-18] MEDS: CARVEDILOL 3.125 MG TAB PO SCH (10:00)
[2022-05-18] MEDS: LINEZOLID 600MG/300ML 300 ML IV SCH ×2 (10:00→22:00)
[2022-05-18] MEDS: FUROSEMIDE 100 MG/10ML VIAL IV SCH (10:00)
[2022-05-18] MEDS: HEPARIN SODIUM (PORCINE) 5000 UNITS/ML 1ML VIAL SC SCH ×2 (10:15→23:01)
[2022-05-18] MEDS: PANTOPRAZOLE 40 MG TAB PO SCH (11:16)
[2022-05-18 15:33] VITALS: BP 118/71
[2022-05-18 16:00] VITALS: BP 124/70
[2022-05-18] MEDS: LOPERAMIDE HCL 2 MG CAP/TAB PO PRN (18:08)
[2022-05-18] MEDS: DAKINS QUARTER STR 0.125% (NaHypochlorite) 473 ML TOPICAL SOL TOP SCH (18:13)
[2022-05-18] MEDS ORDERED: HEPARIN SODIUM (PORCINE) 5000 UNITS/ML 1ML VIAL ONE (21:27)
[2022-05-18 22:00] VITALS: BP 125/75
[2022-05-18] MEDS: ATORVASTATIN 20 MG TAB PO SCH (22:22)
[2022-05-18] MEDS: FLORASTOR (S. BOULARDII) 250 MG CAP PO SCH (22:22)
[2022-05-19 05:00] VITALS: BP 117/71
[2022-05-19] MEDS: MIDODRINE HCL 10 MG TAB PO SCH ×3 (06:28→18:24)
[2022-05-19] MEDS: LEVOTHYROXINE SODIUM 88 MCG TAB PO SCH (06:28)
[2022-05-19] MEDS: ALBUTEROL SULF HFA 90MCG INH 200DOSE IN SCH (06:32)
[2022-05-19] MEDS ORDERED: SODIUM CHL 0.9% 1000 ML BAG XX ONE (07:00)
[2022-05-19] MEDS ORDERED: ALBUTEROL SULF HFA 90MCG INH 200DOSE IN PRN (07:45)
[2022-05-19 08:00] VITALS: BP 144/74
[2022-05-19] MEDS: LINEZOLID 600MG/300ML 300 ML IV SCH ×2 (10:00→22:00)
[2022-05-19] MEDS: HEPARIN SODIUM (PORCINE) 5000 UNITS/ML 1ML VIAL SC SCH ×2 (10:00→22:45)
[2022-05-19] MEDS: cefTRIAXone 1GM/50ML D5W 50 ML IV SCH (11:04)
[2022-05-19] MEDS: ASPirin 81 mg TAB PO SCH (11:04)
[2022-05-19] MEDS: FLORASTOR (S. BOULARDII) 250 MG CAP PO SCH ×2 (11:04→22:43)
[2022-05-19] MEDS: Juven Fruit Punch Powder PACKET 28.8gm PO SCH (11:05)
[2022-05-19] MEDS: PANTOPRAZOLE 40 MG TAB PO SCH (11:05)
[2022-05-19] MEDS: Pro-Stat SF 30ml Vanilla PO SCH ×2 (11:05→18:25)
[2022-05-19] MEDS: FUROSEMIDE 100 MG/10ML VIAL IV SCH (11:06)
[2022-05-19] MEDS: DAKINS QUARTER STR 0.125% (NaHypochlorite) 473 ML TOPICAL SOL TOP SCH (11:06)
[2022-05-19 16:00] VITALS: BP 127/80
[2022-05-19] MEDS ORDERED: EPOETIN ALFA-EPBX 4,000 UNIT/ML VIAL SC ONE (21:00)
[2022-05-19] MEDS: TEMAZEPAM 15 MG CAP PO PRN (21:02)
[2022-05-19 22:00] VITALS: BP 133/73
[2022-05-19] MEDS: ATORVASTATIN 20 MG TAB PO SCH (22:44)
[2022-05-20] MEDS: LOPERAMIDE HCL 2 MG CAP/TAB PO PRN (02:20)
[2022-05-20 05:00] VITALS: BP 130/73
[2022-05-20 05:34] LABS: Basophils # (auto) 0.1 10 ^3/uL (0-0.2); Basophils % (auto) 2.2 % (0.0-2.0); Eosinophils # (auto) 0.3 10 ^3/uL (0-0.8); Eosinophils % (auto) 6.1 % (0.0-7.0); Hematocrit 25.7 % (41.0-53.0); Hemoglobin 8.5 g/dL (13.5-17.5); Lymphocytes # (auto) 1.3 10 ^3/uL (0.4-5.4); Lymphocytes % (auto) 23.6 % (10.0-50.0); Mean Corpuscular Hemoglobin 31.7 pg (28.0-32.0); Mean Corpuscular Hgb Conc. 33.3 g/dL (32.0-36.0); Mean Corpuscular Volume 95.3 fL (80.0-100.0); Monocytes # (auto) 0.3 10 ^3/uL (0-1.3); Monocytes % (auto) 6.1 % (0.0-12.0); Neutrophils # (auto) 3.3 10 ^3/uL (1.6-8.6); Nucleated Red Blood Cells % 0.2 %; Red Blood Cells 2.69 10^6/uL (4.5-5.90); Red Cell Distribution Width 24.7 % (11.8-14.3); White Blood Cell 5.4 10^3/uL (4.4-10.8)
[2022-05-20 05:46] LABS: Potassium 4.3 mmol/L (3.5-5.1)
[2022-05-20 05:56] LABS: BUN/Creatinine Ratio 7.5; Calcium 8.3 mg/dL (8.5-10.1)
[2022-05-20] MEDS: MIDODRINE HCL 10 MG TAB PO SCH ×3 (06:00→17:26)
[2022-05-20] MEDS: LEVOTHYROXINE SODIUM 88 MCG TAB PO SCH (06:55)
[2022-05-20 08:00] VITALS: BP 144/82
[2022-05-20] MEDS: Pro-Stat SF 30ml Vanilla PO SCH ×2 (08:13→17:26)
[2022-05-20] MEDS: cefTRIAXone 1GM/50ML D5W 50 ML IV SCH (09:00)
[2022-05-20] MEDS: LINEZOLID 600MG/300ML 300 ML IV SCH (09:43)
[2022-05-20] MEDS: FUROSEMIDE 100 MG/10ML VIAL IV SCH (09:44)
[2022-05-20] MEDS: ASPirin 81 mg TAB PO SCH (09:44)
[2022-05-20] MEDS: DAKINS QUARTER STR 0.125% (NaHypochlorite) 473 ML TOPICAL SOL TOP SCH (09:45)
[2022-05-20] MEDS: Juven Fruit Punch Powder PACKET 28.8gm PO SCH (09:45)
[2022-05-20] MEDS: PANTOPRAZOLE 40 MG TAB PO SCH (09:45)
[2022-05-20] MEDS: FLORASTOR (S. BOULARDII) 250 MG CAP PO SCH (09:45)
[2022-05-20] MEDS: HEPARIN SODIUM (PORCINE) 5000 UNITS/ML 1ML VIAL SC SCH (09:49)
[2022-05-20 12:00] VITALS: BP 149/93
[2022-05-20 14:08] VITALS: BP 144/82
[2022-05-20] MEDS ORDERED: DEXTROSE (50%) 50ML SYRG IV PRN (17:15)
[2022-05-20] MEDS ORDERED: ACCU-CHEK COMFORT CURVE STRIP VI SCH (22:00)
[2022-05-20] MEDS ORDERED: InsuLIN REG 1unit/0.01ml Soln (100units/ml) SC SCH (22:00)
[2022-05-21] MEDS ORDERED: InsuLIN REG 1unit/0.01ml Soln (100units/ml) SC SCH (07:00)
== END 2022-05-20 12:46 | DRG 628 ==
LOC: ER 22:34 → EDBD 22:34 → UNDOADMIN 05-09 04:28 → TELE 05-09 04:28 → TELE-EAST 05-09 18:19 → UNDODISIN 05-20 18:25
PROVIDERS: ADMIT Nurse Practitioner; ATTEND Nurse Practitioner
PROC: XW033E5 Introduction of Remdesivir Anti-infective into Peripheral Vein, Percutaneous Approach, New Technology Group 5 (ICD-10-PCS; 2022-05-09)
PROC: 5A1D70Z Performance of Urinary Filtration, Intermittent, Less than 6 Hours Per Day (ICD-10-PCS; 2022-05-10)
PROC: 5A1D70Z Performance of Urinary Filtration, Intermittent, Less than 6 Hours Per Day (ICD-10-PCS; 2022-05-12)
PROC: 30233N1 Transfusion of Nonautologous Red Blood Cells into Peripheral Vein, Percutaneous Approach (ICD-10-PCS; 2022-05-12)
PROC: 0QBM0ZZ Excision of Left Tarsal, Open Approach (ICD-10-PCS; principal; 2022-05-12 12:10)
PROC: 5A1D70Z Performance of Urinary Filtration, Intermittent, Less than 6 Hours Per Day (ICD-10-PCS; 2022-05-15)
PROC: 5A1D70Z Performance of Urinary Filtration, Intermittent, Less than 6 Hours Per Day (ICD-10-PCS; 2022-05-17)
DX: E11.621 Type 2 diabetes mellitus with foot ulcer (principal); I21.A1 Myocardial infarction type 2; I50.43 Acute on chronic combined systolic (congestive) and diastolic (congestive) heart failure; U07.1 COVID-19; J96.21 Acute and chronic respiratory failure with hypoxia; J12.82 Pneumonia due to coronavirus disease 2019; I13.2 Hypertensive heart and chronic kidney disease with heart failure and with stage 5 chronic kidney disease, or end stage renal disease; J91.8 Pleural effusion in other conditions classified elsewhere; D61.818 Other pancytopenia; M86.8X7 Other osteomyelitis, ankle and foot; J98.11 Atelectasis; E44.0 Moderate protein-calorie malnutrition; E11.69 Type 2 diabetes mellitus with other specified complication; N18.6 End stage renal disease; I27.20 Pulmonary hypertension, unspecified; B95.2 Enterococcus as the cause of diseases classified elsewhere; I25.10 Atherosclerotic heart disease of native coronary artery without angina pectoris; D63.8 Anemia in other chronic diseases classified elsewhere; L97.529 Non-pressure chronic ulcer of other part of left foot with unspecified severity; D72.819 Decreased white blood cell count, unspecified; D69.6 Thrombocytopenia, unspecified; S91.302A Unspecified open wound, left foot, initial encounter; X58.XXXA Exposure to other specified factors, initial encounter; E11.22 Type 2 diabetes mellitus with diabetic chronic kidney disease; F32.A Depression, unspecified; E11.51 Type 2 diabetes mellitus with diabetic peripheral angiopathy without gangrene; E03.9 Hypothyroidism, unspecified; Z83.3 Family history of diabetes mellitus; Z99.2 Dependence on renal dialysis; Z79.4 Long term (current) use of insulin; Z82.49 Family history of ischemic heart disease and other diseases of the circulatory system; Z95.5 Presence of coronary angioplasty implant and graft; Y93.89 Activity, other specified; Y92.89 Other specified places as the place of occurrence of the external cause; Y99.8 Other external cause status; Z86.16 Personal history of COVID-19; Z88.5 Allergy status to narcotic agent; Z88.1 Allergy status to other antibiotic agents; Z68.27 Body mass index [BMI] 27.0-27.9, adult
CPT/HCPCS: 36415; 36600; 71045; 71275; 73630; 73700; 80048; 80053; 81001; 82306; 82805; 82962; 83036; 83605; 83735; 83880; 84439; 84443; 84484; 85007; 85025; 85027; 85379; 85610; 85730; 86850; 86900; 86901; 86920; 87040; 87070; 87075; 87077; 87081; 87186; 87205; 87340; 87426; 87493; 90935; 93005; 94640; 96365; 96367; 96375; 99291; G0378; J0696; J1100; J1642; J1815; J2001; J2250; J2405; P9047

== ENCOUNTER 2022-05-23 08:11 | Inpatient (IN) | payer MEDICARE, MEDICAID ==
[~2022-05-23] VITALS: Ht 172.7 cm; Wt 75.8 kg
[~2022-05-23 08:11] MED LIST changes: +ACET-1156 PO; +ALBUAER3 IN; -AMIT25TA12 PO; -AMLO-489 PO; +ASCO500T11 PO; -ASPI325T4 PO; -ATOR40TA52 PO; +B-COTAB10 PO; +BISA10SU45 RE; -CARV12.544 PO; +CEFT1INJ17 IV; +CHOL1TAB30 PO; -CHOL20007 PO; +DOCU-94 PO; -FLUT0.05 NAS; -FURO40TA4 PO; -GLIP10TA9 PO; +GUAI-41 PO; +INSREG3 SC; -LEVO500T31 PO; -LINE1TAB6 PO; +LOPE1TAB9 PO; +MAGN400S25 PO; +ONDA-144 PO; +PANT40TA2 PO; -TRAZ100T3 PO; +ZINC220C8 PO
[2022-05-23 11:17] LABS: Basophils # (auto) 0.1 10 ^3/uL (0-0.2); Eosinophils # (auto) 0.3 10 ^3/uL (0-0.8); Hematocrit 24.6 % (41.0-53.0); Mean Corpuscular Hgb Conc. 32.4 g/dL (32.0-36.0); Monocytes # (auto) 0.4 10 ^3/uL (0-1.3); Neutrophils # (auto) 2.9 10 ^3/uL (1.6-8.6); Nucleated Red Blood Cells % 0.2 %; Red Blood Cells 2.55 10^6/uL (4.5-5.90)
[2022-05-23 11:19] LABS: Basophils % (auto) 1.6 % (0.0-2.0); Eosinophils % (auto) 6.1 % (0.0-7.0); Lymphocytes # (auto) 0.8 10 ^3/uL (0.4-5.4); Mean Corpuscular Hemoglobin 31.2 pg (28.0-32.0); Mean Corpuscular Volume 96.4 fL (80.0-100.0); Monocytes % (auto) 8.3 % (0.0-12.0); White Blood Cell 4.4 10^3/uL (4.4-10.8)
[2022-05-23 11:24] LABS: Red Cell Distribution Width 27.6 % (11.8-14.3)
[2022-05-23] MEDS ORDERED: PIPERACILLIN-TAZOB 3.375GM 100 ML IV ONE (11:45)
[2022-05-23] MEDS ORDERED: VANCOMYCIN 1GM/250ML 250 ML IV ONE (11:45)
[2022-05-23 12:14] LABS: Albumin 2.3 g/dL (3.4-5.0); BUN/Creatinine Ratio 7.1; Bilirubin, Total 0.5 mg/dL (0.2-1.0); Calcium 7.8 mg/dL (8.5-10.1); Magnesium 2.1 mg/dL (1.6-2.6); Potassium 4.5 mmol/L (3.5-5.1); Total Protein 6.4 g/dL (6.4-8.2)
[2022-05-23] MEDS ORDERED: DEXTROSE 50% SYRINGE 50 ML IV ONE (12:32)
[2022-05-23] MEDS ORDERED: CLINDAMYCIN 600MG IV 50 ML IV ONE (12:45)
[2022-05-23] MEDS ORDERED: DEXTROSE (50%) 50ML SYRG IV ONE ×2 (12:45→15:00)
[2022-05-23] MEDS ORDERED: D5W/SOD CHL 0.45% 1,000 ML IV ONE (14:45)
[2022-05-23] MEDS ORDERED: ONDANSETRON HCL 4 MG/2 ML VIAL IV PRN (17:15)
[2022-05-23] MEDS ORDERED: HYDROcodone-ACET 5/325MG TAB PO PRN (17:15)
[2022-05-23] MEDS ORDERED: MORPHINE SULFATE INJ 2 MG/ml SYRG IV PRN ×2 (17:15→19:00)
[2022-05-23] MEDS ORDERED: ACETAMINOPHEN 325 MG TAB PO PRN (17:15)
[2022-05-23] MEDS ORDERED: NITROGLYCERIN 0.4 MG SL TAB SL PRN ×2 (17:15→19:00)
[2022-05-23] MEDS: DEXTROSE (50%) 50ML SYRG IV PRN ×2 (17:58→22:44)
[2022-05-23] MEDS: LINEZOLID 600MG/300ML 300 ML IV SCH (18:35)
[2022-05-23] MEDS: DEXTROSE 10% 1,000 ML IV SCH (18:36)
[2022-05-23] MEDS ORDERED: PIPERACILLIN-TAZOB 2.25GM 50 ML IV SCH (20:00)
[2022-05-23] MEDS ORDERED: MEROPENEM 1GM IVPB 100 ML IV SCH (22:00)
[2022-05-23] MEDS ORDERED: CLINDAMYCIN 300MG IV 50 ML IV SCH (22:00)
[2022-05-23] MEDS: ASCORBIC ACID 500 MG TAB PO SCH (23:00)
[2022-05-23] MEDS: MEROPENEM 500MG IVPB 50 ML IV SCH (23:01)
[2022-05-23] MEDS: SODIUM CHLOR 0.9% PF (SALINE LOCK) 10ML VIAL/SYR IV SCH (23:01)
[2022-05-24] MEDS: DEXTROSE 10% 1,000 ML IV SCH ×2 (01:30→07:50)
[2022-05-24] MEDS: LINEZOLID 600MG/300ML 300 ML IV SCH (06:18)
[2022-05-24] MEDS: SODIUM CHLOR 0.9% PF (SALINE LOCK) 10ML VIAL/SYR IV SCH ×3 (06:18→23:01)
[2022-05-24 06:24] LABS: Basophils # (auto) 0.1 10 ^3/uL (0-0.2); Basophils % (auto) 1.6 % (0.0-2.0); Eosinophils # (auto) 0.3 10 ^3/uL (0-0.8); Mean Corpuscular Hemoglobin 31.5 pg (28.0-32.0); Monocytes # (auto) 0.5 10 ^3/uL (0-1.3); Neutrophils # (auto) 2.6 10 ^3/uL (1.6-8.6); Nucleated Red Blood Cells % 0.1 %; White Blood Cell 4.5 10^3/uL (4.4-10.8)
[2022-05-24 06:26] LABS: Eosinophils % (auto) 6.7 % (0.0-7.0); Hematocrit 24.5 % (41.0-53.0); Lymphocytes % (auto) 22.8 % (10.0-50.0); Mean Corpuscular Hgb Conc. 32.7 g/dL (32.0-36.0); Mean Corpuscular Volume 96.3 fL (80.0-100.0); Monocytes % (auto) 11.2 % (0.0-12.0); Neutrophils % (auto) 57.7 % (37.0-80.0); Red Blood Cells 2.54 10^6/uL (4.5-5.90)
[2022-05-24 06:34] LABS: Red Cell Distribution Width 27.5 % (11.8-14.3)
[2022-05-24 07:12] LABS: Albumin 2.3 g/dL (3.4-5.0); BUN/Creatinine Ratio 6.9; Bilirubin, Total 0.6 mg/dL (0.2-1.0); Potassium 4.7 mmol/L (3.5-5.1); Total Protein 6.9 g/dL (6.4-8.2)
[2022-05-24] MEDS: ENOXAPARIN SOD 30 MG/0.3 ML SYRINGE SC SCH ×2 (10:00→12:34)
[2022-05-24] MEDS: MEROPENEM 500MG IVPB 50 ML IV SCH ×2 (10:00→23:01)
[2022-05-24] MEDS: ZINC SULFATE 220mg CAP or TAB PO SCH (12:34)
[2022-05-24] MEDS: MULTIPLE VITAMIN TAB PO SCH (12:34)
[2022-05-24] MEDS: ASCORBIC ACID 500 MG TAB PO SCH ×2 (12:34→23:01)
[2022-05-24 12:51] LABS: Urine Bacteria FEW /hpf (None Seen); Urine Blood 2+ /uL (Negative); Urine Specific Gravity 1.011 (1.001-1.035); Urine WBC 398 /hpf (0 - 3)
[2022-05-24 16:30] LABS: Basophils # (auto) 0.1 10 ^3/uL (0-0.2); Basophils % (auto) 1.4 % (0.0-2.0); Eosinophils # (auto) 0.3 10 ^3/uL (0-0.8); Eosinophils % (auto) 6.4 % (0.0-7.0); Hematocrit 24.8 % (41.0-53.0); Hemoglobin 8.1 g/dL (13.5-17.5); Lymphocytes # (auto) 1.1 10 ^3/uL (0.4-5.4); Lymphocytes % (auto) 21.3 % (10.0-50.0); Mean Corpuscular Hemoglobin 31.3 pg (28.0-32.0); Mean Corpuscular Hgb Conc. 32.6 g/dL (32.0-36.0); Mean Corpuscular Volume 96.1 fL (80.0-100.0); Monocytes # (auto) 0.6 10 ^3/uL (0-1.3); Monocytes % (auto) 10.9 % (0.0-12.0); Neutrophils # (auto) 3.1 10 ^3/uL (1.6-8.6); Red Blood Cells 2.58 10^6/uL (4.5-5.90); White Blood Cell 5.2 10^3/uL (4.4-10.8)
[2022-05-24 16:32] LABS: Red Cell Distribution Width 27.7 % (11.8-14.3)
[2022-05-24 16:46] LABS: Albumin 2.4 g/dL (3.4-5.0); BUN/Creatinine Ratio 6.7; Potassium 4.5 mmol/L (3.5-5.1)
[2022-05-24 16:48] LABS: Bilirubin, Total 0.5 mg/dL (0.2-1.0); Total Protein 6.7 g/dL (6.4-8.2)
[2022-05-24] MEDS: DAPTOmycin 500 MG in SODIUM CHL 0.9% 50 ML IV SCH (17:00)
[2022-05-24 23:45] VITALS: BP 144/68
[2022-05-25 05:00] VITALS: BP 125/32
[2022-05-25] MEDS: SODIUM CHLOR 0.9% PF (SALINE LOCK) 10ML VIAL/SYR IV SCH ×3 (05:08→22:59)
[2022-05-25 09:48] VITALS: BP 131/40
[2022-05-25] MEDS: ASCORBIC ACID 500 MG TAB PO SCH ×2 (09:53→22:59)
[2022-05-25] MEDS: MULTIPLE VITAMIN TAB PO SCH (09:53)
[2022-05-25] MEDS: ZINC SULFATE 220mg CAP or TAB PO SCH (09:53)
[2022-05-25] MEDS: ENOXAPARIN SOD 30 MG/0.3 ML SYRINGE SC SCH (10:00)
[2022-05-25] MEDS: DAKINS QUARTER STR 0.125% (NaHypochlorite) 473 ML TOPICAL SOL TOP SCH ×2 (10:03→22:59)
[2022-05-25] MEDS: MEROPENEM 500MG IVPB 50 ML IV SCH ×3 (10:03→22:59)
[2022-05-25] MEDS: DEXTROSE 10% 1,000 ML IV SCH (10:30)
[2022-05-25 12:48] VITALS: BP 141/45
[2022-05-25] MEDS: ALBUTEROL SULF 2.5 MG/0.5ML(0.5%) NEB SOLN NEB PRN ×2 (15:38→18:56)
[2022-05-25] MEDS: IPRATROPIUM BROM 0.5 MG/2.5ML INH SOL NEB PRN ×2 (15:38→18:56)
[2022-05-25 16:27] VITALS: BP 141/45
[2022-05-25 17:04] VITALS: BP 130/75
[2022-05-25 22:00] VITALS: BP 117/60
[2022-05-26] MEDS: IPRATROPIUM BROM 0.5 MG/2.5ML INH SOL NEB PRN ×3 (00:31→21:13)
[2022-05-26] MEDS: ALBUTEROL SULF 2.5 MG/0.5ML(0.5%) NEB SOLN NEB PRN ×3 (00:31→21:13)
[2022-05-26 05:00] VITALS: BP 123/70
[2022-05-26] MEDS: SODIUM CHLOR 0.9% PF (SALINE LOCK) 10ML VIAL/SYR IV SCH ×2 (05:38→21:57)
[2022-05-26 06:55] LABS: Basophils # (auto) 0.1 10 ^3/uL (0-0.2); Eosinophils # (auto) 0.3 10 ^3/uL (0-0.8); Hemoglobin 7.4 g/dL (13.5-17.5); Lymphocytes # (auto) 1.1 10 ^3/uL (0.4-5.4); Monocytes # (auto) 0.4 10 ^3/uL (0-1.3); Nucleated Red Blood Cells % 0.1 %
[2022-05-26 06:58] LABS: Basophils % (auto) 1.6 % (0.0-2.0); Eosinophils % (auto) 5.5 % (0.0-7.0); Hematocrit 23.2 % (41.0-53.0); Lymphocytes % (auto) 22.4 % (10.0-50.0); Mean Corpuscular Hemoglobin 30.9 pg (28.0-32.0); Mean Corpuscular Hgb Conc. 31.8 g/dL (32.0-36.0); Mean Corpuscular Volume 96.9 fL (80.0-100.0); Monocytes % (auto) 7.1 % (0.0-12.0); Neutrophils # (auto) 3.2 10 ^3/uL (1.6-8.6); Neutrophils % (auto) 63.4 % (37.0-80.0)
[2022-05-26 06:59] LABS: Red Cell Distribution Width 27.6 % (11.8-14.3)
[2022-05-26 07:13] LABS: Calcium 8.6 mg/dL (8.5-10.1); Potassium 4.9 mmol/L (3.5-5.1)
[2022-05-26 07:15] LABS: BUN/Creatinine Ratio 6.5
[2022-05-26 09:00] VITALS: BP 135/51
[2022-05-26] MEDS: ZINC SULFATE 220mg CAP or TAB PO SCH (09:03)
[2022-05-26] MEDS: MULTIPLE VITAMIN TAB PO SCH (09:03)
[2022-05-26] MEDS: ASCORBIC ACID 500 MG TAB PO SCH ×2 (09:03→21:57)
[2022-05-26] MEDS: ENOXAPARIN SOD 30 MG/0.3 ML SYRINGE SC SCH (09:04)
[2022-05-26] MEDS: MEROPENEM 500MG IVPB 50 ML IV SCH ×2 (10:00→21:57)
[2022-05-26 12:45] VITALS: BP 127/83
[2022-05-26 16:39] VITALS: BP 32/17
[2022-05-26] MEDS: DAPTOmycin 500 MG in SODIUM CHL 0.9% 50 ML IV SCH (21:57)
[2022-05-26] MEDS: DAKINS QUARTER STR 0.125% (NaHypochlorite) 473 ML TOPICAL SOL TOP SCH (21:57)
[2022-05-26 22:00] VITALS: BP 116/72
[2022-05-27 05:00] VITALS: BP 119/64
[2022-05-27] MEDS: SODIUM CHLOR 0.9% PF (SALINE LOCK) 10ML VIAL/SYR IV SCH ×3 (05:16→21:46)
[2022-05-27 09:00] VITALS: BP 94/48
[2022-05-27] MEDS ORDERED: EPOETIN ALFA-EPBX 10,000 UNIT/1ML VIAL SC ONE (09:59)
[2022-05-27] MEDS: MEROPENEM 500MG IVPB 50 ML IV SCH ×2 (12:39→21:46)
[2022-05-27] MEDS: ZINC SULFATE 220mg CAP or TAB PO SCH (12:41)
[2022-05-27] MEDS: ASCORBIC ACID 500 MG TAB PO SCH ×2 (12:41→21:46)
[2022-05-27] MEDS: DAKINS QUARTER STR 0.125% (NaHypochlorite) 473 ML TOPICAL SOL TOP SCH ×2 (12:42→21:47)
[2022-05-27] MEDS: MULTIPLE VITAMIN TAB PO SCH (12:51)
[2022-05-27 13:00] VITALS: BP 123/64
[2022-05-27] MEDS: ALBUTEROL SULF 2.5 MG/0.5ML(0.5%) NEB SOLN NEB PRN ×2 (13:11→19:29)
[2022-05-27] MEDS: IPRATROPIUM BROM 0.5 MG/2.5ML INH SOL NEB PRN ×2 (13:11→19:29)
[2022-05-27 17:01] VITALS: BP 104/62
[2022-05-27] MEDS: HEPARIN SODIUM (PORCINE) 5000 UNITS/ML 1ML VIAL SC SCH ×2 (19:02→21:47)
[2022-05-27 22:00] VITALS: BP 107/63
[2022-05-28 00:08] VITALS: BP 107/63
[2022-05-28 05:00] VITALS: BP 107/53
[2022-05-28] MEDS: SODIUM CHLOR 0.9% PF (SALINE LOCK) 10ML VIAL/SYR IV SCH ×3 (06:06→22:18)
[2022-05-28 06:27] LABS: Basophils # (auto) 0.1 10 ^3/uL (0-0.2); Eosinophils # (auto) 0.2 10 ^3/uL (0-0.8); Monocytes # (auto) 0.4 10 ^3/uL (0-1.3); Neutrophils # (auto) 3.3 10 ^3/uL (1.6-8.6); Nucleated Red Blood Cells % 0.1 %; White Blood Cell 5.2 10^3/uL (4.4-10.8)
[2022-05-28 06:30] LABS: Basophils % (auto) 2.2 % (0.0-2.0); Eosinophils % (auto) 4.3 % (0.0-7.0); Hematocrit 22.2 % (41.0-53.0); Hemoglobin 7.3 g/dL (13.5-17.5); Lymphocytes # (auto) 1.2 10 ^3/uL (0.4-5.4); Lymphocytes % (auto) 22.5 % (10.0-50.0); Mean Corpuscular Hemoglobin 32.5 pg (28.0-32.0); Mean Corpuscular Hgb Conc. 33.1 g/dL (32.0-36.0); Mean Corpuscular Volume 98.3 fL (80.0-100.0); Monocytes % (auto) 7.8 % (0.0-12.0); Neutrophils % (auto) 63.2 % (37.0-80.0); Red Blood Cells 2.25 10^6/uL (4.5-5.90)
[2022-05-28 06:40] LABS: Red Cell Distribution Width 27.6 % (11.8-14.3)
[2022-05-28] MEDS: HEPARIN SODIUM (PORCINE) 5000 UNITS/ML 1ML VIAL SC SCH (09:12)
[2022-05-28] MEDS: ASCORBIC ACID 500 MG TAB PO SCH ×3 (09:19→22:18)
[2022-05-28] MEDS: ZINC SULFATE 220mg CAP or TAB PO SCH (09:19)
[2022-05-28] MEDS: MULTIPLE VITAMIN TAB PO SCH (09:19)
[2022-05-28] MEDS: MEROPENEM 500MG IVPB 50 ML IV SCH ×3 (09:20→22:17)
[2022-05-28] MEDS: DAKINS QUARTER STR 0.125% (NaHypochlorite) 473 ML TOPICAL SOL TOP SCH ×2 (09:20→22:18)
[2022-05-28] MEDS: guaiFENesin-DM 100/10mg/5ml SYR PO PRN ×2 (12:00→18:03)
[2022-05-28] MEDS: ALBUTEROL SULF 2.5 MG/0.5ML(0.5%) NEB SOLN NEB PRN (12:09)
[2022-05-28] MEDS: IPRATROPIUM BROM 0.5 MG/2.5ML INH SOL NEB PRN (12:22)
[2022-05-28 12:49] VITALS: BP 109/56
[2022-05-28 16:51] VITALS: BP 116/66
[2022-05-28] MEDS: DAPTOmycin 500 MG in SODIUM CHL 0.9% 50 ML IV SCH (20:37)
[2022-05-28 22:00] VITALS: BP 111/20
[2022-05-28] MEDS ORDERED: ALBUTEROL SULF 2.5 MG/0.5ML(0.5%) NEB SOLN NEB ONE (22:45)
[2022-05-28] MEDS ORDERED: IPRATROPIUM BROM 0.5 MG/2.5ML INH SOL NEB ONE (22:45)
[2022-05-29] VITALS (7 sets, daily range): BP systolic 95–128; BP diastolic 50–72
[2022-05-29] MEDS: SODIUM CHLOR 0.9% PF (SALINE LOCK) 10ML VIAL/SYR IV SCH ×3 (05:25→21:50)
[2022-05-29] MEDS: IPRATROPIUM BROM 0.5 MG/2.5ML INH SOL NEB SCH ×3 (06:22→19:13)
[2022-05-29] MEDS: ALBUTEROL SULF 2.5 MG/0.5ML(0.5%) NEB SOLN NEB SCH ×3 (06:22→19:13)
[2022-05-29 06:32] LABS: Basophils # (auto) 0.1 10 ^3/uL (0-0.2); Eosinophils # (auto) 0.2 10 ^3/uL (0-0.8); Hemoglobin 7.4 g/dL (13.5-17.5); Lymphocytes # (auto) 0.7 10 ^3/uL (0.4-5.4); Monocytes # (auto) 0.4 10 ^3/uL (0-1.3); Nucleated Red Blood Cells % 0.1 %
[2022-05-29 06:35] LABS: Basophils % (auto) 1.1 % (0.0-2.0); Hematocrit 22.3 % (41.0-53.0); Lymphocytes % (auto) 9.3 % (10.0-50.0); Mean Corpuscular Hemoglobin 33.2 pg (28.0-32.0); Mean Corpuscular Hgb Conc. 33.3 g/dL (32.0-36.0); Mean Corpuscular Volume 99.8 fL (80.0-100.0); Monocytes % (auto) 5.7 % (0.0-12.0); Neutrophils # (auto) 6.1 10 ^3/uL (1.6-8.6); Neutrophils % (auto) 80.9 % (37.0-80.0); Red Blood Cells 2.24 10^6/uL (4.5-5.90); White Blood Cell 7.6 10^3/uL (4.4-10.8)
[2022-05-29 07:17] LABS: Red Cell Distribution Width 27.7 % (11.8-14.3)
[2022-05-29] MEDS: MULTIPLE VITAMIN TAB PO SCH (08:40)
[2022-05-29] MEDS: MEROPENEM 500MG IVPB 50 ML IV SCH (08:40)
[2022-05-29] MEDS: ZINC SULFATE 220mg CAP or TAB PO SCH (08:40)
[2022-05-29] MEDS: ASCORBIC ACID 500 MG TAB PO SCH ×2 (08:40→21:50)
[2022-05-29] MEDS: DAKINS QUARTER STR 0.125% (NaHypochlorite) 473 ML TOPICAL SOL TOP SCH ×2 (08:40→22:00)
[2022-05-29 11:28] LABS: Hepatitis A Ab IgM Negative
[2022-05-29 11:29] LABS: Hepatitis B Core IgM Negative; Hepatitis C Antibody Negative (Negative)
[2022-05-29] MEDS ORDERED: LOPERAMIDE HCL 2 MG CAP/TAB PO PRN (14:00)
[2022-05-29] MEDS ORDERED: EPOETIN ALFA-EPBX 10,000 UNIT/1ML VIAL IV ONE (16:45)
[2022-05-29] MEDS: LORazepam 0.5 MG TAB PO PRN (20:14)
[2022-05-29] MEDS ORDERED: MIDAZOLAM DRIP 50 mg/50mL 50 ML IV ONE (23:49)
[2022-05-29] MEDS: MIDAZOLAM DRIP 50 mg/50mL 50 ML IV SCH (23:55)
[2022-05-30] VITALS (108 sets, daily range): BP systolic 62–150; BP diastolic 36–96
[2022-05-30] MEDS ORDERED: ACETAMINOPHEN 650 mg PER 20.3 mL UD GT PRN (00:15)
[2022-05-30] MEDS ORDERED: NOREPINEPHRINE 8 MG/250ML KIT 250 ML IV ONE (00:53)
[2022-05-30] MEDS: NOREPINEPHRINE 8 MG/250ML KIT 250 ML IV SCH (01:00)
[2022-05-30 02:13] LABS: Basophils # (auto) 0.1 10 ^3/uL (0-0.2); Eosinophils # (auto) 0.2 10 ^3/uL (0-0.8); Hemoglobin 7.4 g/dL (13.5-17.5); Lymphocytes # (auto) 0.5 10 ^3/uL (0.4-5.4); Monocytes # (auto) 0.4 10 ^3/uL (0-1.3)
[2022-05-30 02:15] LABS: Basophils % (auto) 1.1 % (0.0-2.0); Eosinophils % (auto) 2.2 % (0.0-7.0); Hematocrit 22.7 % (41.0-53.0); Lymphocytes % (auto) 6.3 % (10.0-50.0); Mean Corpuscular Hemoglobin 32.4 pg (28.0-32.0); Mean Corpuscular Hgb Conc. 32.4 g/dL (32.0-36.0); Monocytes % (auto) 5.1 % (0.0-12.0); Neutrophils # (auto) 6.7 10 ^3/uL (1.6-8.6); Neutrophils % (auto) 85.3 % (37.0-80.0); Nucleated Red Blood Cells % 0.2 %; Red Blood Cells 2.27 10^6/uL (4.5-5.90); White Blood Cell 7.8 10^3/uL (4.4-10.8)
[2022-05-30 02:20] LABS: Red Cell Distribution Width 27.8 % (11.8-14.3)
[2022-05-30 02:22] LABS: BUN/Creatinine Ratio 5.1; Calcium 9.1 mg/dL (8.5-10.1); Magnesium 2.2 mg/dL (1.6-2.6); Potassium 4.1 mmol/L (3.5-5.1)
[2022-05-30 04:34] LABS: Basophils # (auto) 0.1 10 ^3/uL (0-0.2); Hematocrit 21.2 % (41.0-53.0); Lymphocytes # (auto) 0.5 10 ^3/uL (0.4-5.4); Monocytes # (auto) 0.5 10 ^3/uL (0-1.3); Nucleated Red Blood Cells % 0.2 %; Red Blood Cells 2.09 10^6/uL (4.5-5.90)
[2022-05-30 04:37] LABS: Basophils % (auto) 1.1 % (0.0-2.0); Eosinophils # (auto) 0.2 10 ^3/uL (0-0.8); Eosinophils % (auto) 2.4 % (0.0-7.0); Lymphocytes % (auto) 6.9 % (10.0-50.0); Mean Corpuscular Hemoglobin 33.3 pg (28.0-32.0); Mean Corpuscular Hgb Conc. 32.8 g/dL (32.0-36.0); Mean Corpuscular Volume 101.4 fL (80.0-100.0); Monocytes % (auto) 6.5 % (0.0-12.0); Neutrophils # (auto) 6.1 10 ^3/uL (1.6-8.6); Neutrophils % (auto) 83.1 % (37.0-80.0); White Blood Cell 7.3 10^3/uL (4.4-10.8)
[2022-05-30 04:39] LABS: INR 1.35 (0.9-1.15); Partial Thromboplastin Time 40.4 sec (24.6-33.4)
[2022-05-30 04:46] LABS: Calcium 8.7 mg/dL (8.5-10.1); Potassium 4.2 mmol/L (3.5-5.1)
[2022-05-30 04:51] LABS: Red Cell Distribution Width 27.8 % (11.8-14.3)
[2022-05-30 04:52] LABS: BUN/Creatinine Ratio 5.7
[2022-05-30] MEDS: SODIUM CHLOR 0.9% PF (SALINE LOCK) 10ML VIAL/SYR IV SCH ×3 (06:20→22:14)
[2022-05-30] MEDS: ALBUTEROL SULF 2.5 MG/0.5ML(0.5%) NEB SOLN NEB SCH ×3 (07:07→18:44)
[2022-05-30] MEDS: IPRATROPIUM BROM 0.5 MG/2.5ML INH SOL NEB SCH ×3 (07:07→18:44)
[2022-05-30] MEDS: ZINC SULFATE 220mg CAP or TAB PO SCH (09:58)
[2022-05-30] MEDS: MULTIPLE VITAMIN TAB PO SCH (09:58)
[2022-05-30] MEDS: ASCORBIC ACID 500 MG TAB PO SCH (09:58)
[2022-05-30] MEDS: DAKINS QUARTER STR 0.125% (NaHypochlorite) 473 ML TOPICAL SOL TOP SCH ×2 (10:00→22:14)
[2022-05-30] MEDS: DEXTROSE (50%) 50ML SYRG IV PRN (10:13)
[2022-05-30] MEDS ORDERED: MEROPENEM 1GM IVPB 100 ML IV ONE (10:30)
[2022-05-30] MEDS ORDERED: DEXTROSE (50%) 50ML SYRG IV PRN (14:15)
[2022-05-30] MEDS ORDERED: InsuLIN REG 1unit/0.01ml Soln (100units/ml) SC SCH (16:00)
[2022-05-30] MEDS ORDERED: ACCU-CHEK COMFORT CURVE STRIP VI SCH (16:00)
[2022-05-30] MEDS: InsuLIN REG 1unit/0.01ml Soln (100units/ml) SC SCH (18:00)
[2022-05-30] MEDS: ACCU-CHEK COMFORT CURVE STRIP VI SCH (18:17)
[2022-05-30] MEDS: DAPTOmycin 500 MG in SODIUM CHL 0.9% 50 ML IV SCH (18:18)
[2022-05-30] MEDS: MEROPENEM 500MG IVPB 50 ML IV SCH (22:13)
[2022-05-30] MEDS: FAMOTIDINE (10MG/ML) 2ML VL IV SCH (22:13)
[2022-05-30] MEDS: MIDAZOLAM DRIP 50 mg/50mL 50 ML IV SCH ×2 (23:00→23:45)
[2022-05-31] VITALS (107 sets, daily range): BP systolic 87–139; BP diastolic 30–72
[2022-05-31] MEDS: NOREPINEPHRINE 8 MG/250ML KIT 250 ML IV SCH ×2 (01:15→08:52)
[2022-05-31] MEDS: MIDAZOLAM DRIP 50 mg/50mL 50 ML IV SCH ×5 (02:30→21:30)
[2022-05-31 04:41] LABS: BUN/Creatinine Ratio 5.5; Calcium 8.4 mg/dL (8.5-10.1)
[2022-05-31 04:44] LABS: Basophils # (auto) 0.1 10 ^3/uL (0-0.2); Basophils % (auto) 1.1 % (0.0-2.0); Eosinophils # (auto) 0.2 10 ^3/uL (0-0.8); Eosinophils % (auto) 3.6 % (0.0-7.0); Hematocrit 26.1 % (41.0-53.0); Hemoglobin 8.4 g/dL (13.5-17.5); Lymphocytes # (auto) 0.7 10 ^3/uL (0.4-5.4); Lymphocytes % (auto) 11.8 % (10.0-50.0); Mean Corpuscular Hgb Conc. 32.4 g/dL (32.0-36.0); Mean Corpuscular Volume 101.9 fL (80.0-100.0); Monocytes # (auto) 0.4 10 ^3/uL (0-1.3); Neutrophils # (auto) 4.2 10 ^3/uL (1.6-8.6); Neutrophils % (auto) 75.5 % (37.0-80.0); Nucleated Red Blood Cells % 0.2 %; Red Blood Cells 2.56 10^6/uL (4.5-5.90); White Blood Cell 5.5 10^3/uL (4.4-10.8)
[2022-05-31 04:48] LABS: Red Cell Distribution Width 28.2 % (11.8-14.3)
[2022-05-31] MEDS: InsuLIN REG 1unit/0.01ml Soln (100units/ml) SC SCH ×4 (06:00→18:00)
[2022-05-31] MEDS: ACCU-CHEK COMFORT CURVE STRIP VI SCH ×4 (06:38→18:34)
[2022-05-31] MEDS: SODIUM CHLOR 0.9% PF (SALINE LOCK) 10ML VIAL/SYR IV SCH ×3 (06:38→21:31)
[2022-05-31] MEDS: IPRATROPIUM BROM 0.5 MG/2.5ML INH SOL NEB SCH ×3 (06:50→18:44)
[2022-05-31] MEDS: ALBUTEROL SULF 2.5 MG/0.5ML(0.5%) NEB SOLN NEB SCH ×3 (06:51→18:44)
[2022-05-31] MEDS ORDERED: SODIUM CHL 0.9% 1000 ML BAG XX ONE ×2 (07:00→08:45)
[2022-05-31] MEDS: MULTIPLE VITAMIN TAB PO SCH (09:40)
[2022-05-31] MEDS: MEROPENEM 500MG IVPB 50 ML IV SCH ×2 (09:40→21:31)
[2022-05-31] MEDS: FAMOTIDINE (10MG/ML) 2ML VL IV SCH ×2 (09:40→21:31)
[2022-05-31] MEDS: DAKINS QUARTER STR 0.125% (NaHypochlorite) 473 ML TOPICAL SOL TOP SCH ×2 (15:00→21:48)
[2022-05-31] MEDS ORDERED: Nepro With Carb Steady 1 Liter Bottle GT SCH (16:30)
[2022-05-31] MEDS ORDERED: ALBUMIN 25% 100 ML IV ONE (16:30)
[2022-05-31] MEDS ORDERED: EPOETIN ALFA-EPBX 10,000 UNIT/1ML VIAL SC ONE (21:00)
[2022-06-01] VITALS (107 sets, daily range): BP systolic 88–153; BP diastolic 29–59
[2022-06-01] MEDS: ACCU-CHEK COMFORT CURVE STRIP VI SCH ×4 (00:03→18:13)
[2022-06-01] MEDS: fentaNYL Drip 2500mCg/250mlNS 250 ML IV SCH (02:00)
[2022-06-01 04:21] LABS: Basophils % (auto) 1.2 % (0.0-2.0); Eosinophils # (auto) 0.2 10 ^3/uL (0-0.8); Mean Corpuscular Hemoglobin 31.7 pg (28.0-32.0); Nucleated Red Blood Cells % 0.1 %; White Blood Cell 4.2 10^3/uL (4.4-10.8)
[2022-06-01 04:24] LABS: Basophils # (auto) 0 10 ^3/uL (0-0.2); Eosinophils % (auto) 5.2 % (0.0-7.0); Hematocrit 22.9 % (41.0-53.0); Hemoglobin 7.5 g/dL (13.5-17.5); Lymphocytes # (auto) 0.7 10 ^3/uL (0.4-5.4); Lymphocytes % (auto) 16.9 % (10.0-50.0); Mean Corpuscular Hgb Conc. 32.7 g/dL (32.0-36.0); Mean Corpuscular Volume 96.8 fL (80.0-100.0); Monocytes # (auto) 0.4 10 ^3/uL (0-1.3); Monocytes % (auto) 8.6 % (0.0-12.0); Neutrophils # (auto) 2.8 10 ^3/uL (1.6-8.6); Neutrophils % (auto) 68.1 % (37.0-80.0); Red Blood Cells 2.37 10^6/uL (4.5-5.90)
[2022-06-01] MEDS: MIDAZOLAM DRIP 50 mg/50mL 50 ML IV SCH ×4 (04:25→21:17)
[2022-06-01 04:28] LABS: Red Cell Distribution Width 28.8 % (11.8-14.3)
[2022-06-01 04:31] LABS: Albumin 2.1 g/dL (3.4-5.0); Calcium 8.3 mg/dL (8.5-10.1); Potassium 3.5 mmol/L (3.5-5.1)
[2022-06-01 04:36] LABS: Bilirubin, Total 0.8 mg/dL (0.2-1.0); Total Protein 5.6 g/dL (6.4-8.2)
[2022-06-01] MEDS: SODIUM CHLOR 0.9% PF (SALINE LOCK) 10ML VIAL/SYR IV SCH ×3 (05:32→21:18)
[2022-06-01] MEDS: DEXTROSE (50%) 50ML SYRG IV PRN (05:33)
[2022-06-01] MEDS: InsuLIN REG 1unit/0.01ml Soln (100units/ml) SC SCH ×4 (05:33→18:00)
[2022-06-01] MEDS: ALBUTEROL SULF 2.5 MG/0.5ML(0.5%) NEB SOLN NEB SCH ×3 (06:48→18:27)
[2022-06-01] MEDS: IPRATROPIUM BROM 0.5 MG/2.5ML INH SOL NEB SCH ×3 (06:48→18:27)
[2022-06-01 09:15] LABS: Hepatitis B Surface Antibody Negative (Negative)
[2022-06-01 09:52] LABS: Hepatitis A Total Antibody Positive (Negative)
[2022-06-01] MEDS: MEROPENEM 500MG IVPB 50 ML IV SCH ×2 (10:19→21:17)
[2022-06-01] MEDS: FAMOTIDINE (10MG/ML) 2ML VL IV SCH ×2 (10:19→21:17)
[2022-06-01] MEDS: MULTIPLE VITAMIN TAB PO SCH (10:20)
[2022-06-01] MEDS: DAKINS QUARTER STR 0.125% (NaHypochlorite) 473 ML TOPICAL SOL TOP SCH ×2 (10:20→21:19)
[2022-06-01 11:10] LABS: Hepatitis C Antibody Negative (Negative)
[2022-06-01] MEDS: METOCLOPRAMIDE HCL 5MG/ml INJ 2ml VIAL IV SCH ×2 (14:55→21:18)
[2022-06-01] MEDS: DAPTOmycin 500 MG in SODIUM CHL 0.9% 50 ML IV SCH (16:30)
[2022-06-02] VITALS (107 sets, daily range): BP systolic 63–137; BP diastolic 29–98
[2022-06-02] MEDS: NOREPINEPHRINE 8 MG/250ML KIT 250 ML IV SCH (01:15)
[2022-06-02] MEDS: fentaNYL Drip 2500mCg/250mlNS 250 ML IV SCH (02:00)
[2022-06-02] MEDS: MIDAZOLAM DRIP 50 mg/50mL 50 ML IV SCH ×2 (03:24→06:51)
[2022-06-02 04:53] LABS: Basophils # (auto) 0.1 10 ^3/uL (0-0.2); Basophils % (auto) 1.2 % (0.0-2.0); Eosinophils # (auto) 0.3 10 ^3/uL (0-0.8); Lymphocytes # (auto) 0.7 10 ^3/uL (0.4-5.4); Monocytes # (auto) 0.3 10 ^3/uL (0-1.3); Neutrophils % (auto) 67.2 % (37.0-80.0)
[2022-06-02 04:54] LABS: Eosinophils % (auto) 6.6 % (0.0-7.0); Hematocrit 25.3 % (41.0-53.0); Hemoglobin 8.4 g/dL (13.5-17.5); Lymphocytes % (auto) 17.1 % (10.0-50.0); Mean Corpuscular Hemoglobin 32.2 pg (28.0-32.0); Mean Corpuscular Hgb Conc. 33.3 g/dL (32.0-36.0); Mean Corpuscular Volume 96.9 fL (80.0-100.0); Monocytes % (auto) 7.9 % (0.0-12.0); Neutrophils # (auto) 2.9 10 ^3/uL (1.6-8.6); Red Blood Cells 2.61 10^6/uL (4.5-5.90); White Blood Cell 4.3 10^3/uL (4.4-10.8)
[2022-06-02 04:55] LABS: Red Cell Distribution Width 27.9 % (11.8-14.3)
[2022-06-02 05:19] LABS: Calcium 7.9 mg/dL (8.5-10.1); Potassium 3.8 mmol/L (3.5-5.1)
[2022-06-02 05:25] LABS: BUN/Creatinine Ratio 5.7; Bilirubin, Total 0.8 mg/dL (0.2-1.0); Total Protein 5.4 g/dL (6.4-8.2)
[2022-06-02] MEDS: METOCLOPRAMIDE HCL 5MG/ml INJ 2ml VIAL IV SCH ×3 (05:54→21:55)
[2022-06-02] MEDS: SODIUM CHLOR 0.9% PF (SALINE LOCK) 10ML VIAL/SYR IV SCH ×3 (05:55→21:55)
[2022-06-02] MEDS: IPRATROPIUM BROM 0.5 MG/2.5ML INH SOL NEB SCH ×3 (05:59→18:29)
[2022-06-02] MEDS: ALBUTEROL SULF 2.5 MG/0.5ML(0.5%) NEB SOLN NEB SCH ×3 (05:59→18:29)
[2022-06-02] MEDS: InsuLIN REG 1unit/0.01ml Soln (100units/ml) SC SCH ×4 (06:00→18:00)
[2022-06-02] MEDS: ACCU-CHEK COMFORT CURVE STRIP VI SCH ×4 (06:27→18:20)
[2022-06-02] MEDS ORDERED: SODIUM CHL 0.9% 1000 ML BAG XX ONE (07:00)
[2022-06-02] MEDS: DAKINS QUARTER STR 0.125% (NaHypochlorite) 473 ML TOPICAL SOL TOP SCH ×2 (09:28→21:56)
[2022-06-02] MEDS: MULTIPLE VITAMIN TAB PO SCH (09:28)
[2022-06-02] MEDS: MEROPENEM 500MG IVPB 50 ML IV SCH ×2 (09:28→21:54)
[2022-06-02] MEDS: FAMOTIDINE (10MG/ML) 2ML VL IV SCH ×2 (09:28→21:55)
[2022-06-02] MEDS: ALBUMIN 25% 100 ML IV PRN (13:24)
[2022-06-02] MEDS ORDERED: EPOETIN ALFA-EPBX 10,000 UNIT/1ML VIAL SC ONE (21:00)
[2022-06-03] VITALS (58 sets, daily range): BP systolic 87–127; BP diastolic 47–71
[2022-06-03] MEDS: ACCU-CHEK COMFORT CURVE STRIP VI SCH ×5 (00:26→23:22)
[2022-06-03] MEDS: NOREPINEPHRINE 8 MG/250ML KIT 250 ML IV SCH ×2 (01:15→20:50)
[2022-06-03] MEDS: fentaNYL Drip 2500mCg/250mlNS 250 ML IV SCH ×2 (02:37→20:48)
[2022-06-03 04:20] LABS: Hemoglobin 8.5 g/dL (13.5-17.5); White Blood Cell 5.3 10^3/uL (4.4-10.8)
[2022-06-03 04:24] LABS: Hematocrit 25.9 % (41.0-53.0); Mean Corpuscular Hemoglobin 32.1 pg (28.0-32.0); Mean Corpuscular Volume 97.4 fL (80.0-100.0); Red Blood Cells 2.66 10^6/uL (4.5-5.90)
[2022-06-03 04:41] LABS: Albumin 2.1 g/dL (3.4-5.0); Potassium 3.6 mmol/L (3.5-5.1)
[2022-06-03 04:43] LABS: Basophils % (manual) 0 (0.0-2.0); Blast Cells 0; Metamyelocytes % 0; Myelocytes % 0; Promyelocytes % 0; Red Cell Distribution Width 28.5 % (11.8-14.3)
[2022-06-03 04:44] LABS: Bilirubin, Total 0.7 mg/dL (0.2-1.0); Total Protein 5.2 g/dL (6.4-8.2)
[2022-06-03 05:37] LABS: Band Neutrophils % (manual) 12; Eosinophils % (manual) 6 (0-7); Lymphocytes % (manual) 16 (10.0-50.0); Monocytes % (manual) 10 (0-12); Reactive Lymphocytes 2
[2022-06-03] MEDS: InsuLIN REG 1unit/0.01ml Soln (100units/ml) SC SCH ×5 (06:00→23:21)
[2022-06-03] MEDS: METOCLOPRAMIDE HCL 5MG/ml INJ 2ml VIAL IV SCH ×3 (06:36→21:06)
[2022-06-03] MEDS: SODIUM CHLOR 0.9% PF (SALINE LOCK) 10ML VIAL/SYR IV SCH ×3 (06:37→21:07)
[2022-06-03] MEDS: IPRATROPIUM BROM 0.5 MG/2.5ML INH SOL NEB SCH ×3 (06:47→18:21)
[2022-06-03] MEDS: ALBUTEROL SULF 2.5 MG/0.5ML(0.5%) NEB SOLN NEB SCH ×3 (06:47→18:21)
[2022-06-03] MEDS: FAMOTIDINE (10MG/ML) 2ML VL IV SCH ×2 (09:03→21:06)
[2022-06-03] MEDS: MULTIPLE VITAMIN TAB PO SCH (09:03)
[2022-06-03] MEDS: DAKINS QUARTER STR 0.125% (NaHypochlorite) 473 ML TOPICAL SOL TOP SCH ×2 (09:04→21:07)
[2022-06-03] MEDS: MEROPENEM 500MG IVPB 50 ML IV SCH ×2 (09:04→21:06)
[2022-06-03] MEDS: FLUCONAZOLE 200MG/100ML 100 ML IV SCH ×2 (11:45→13:09)
[2022-06-03] MEDS: DAPTOmycin 500 MG in SODIUM CHL 0.9% 50 ML IV SCH (16:40)
[2022-06-03] MEDS: MIDAZOLAM DRIP 50 mg/50mL 50 ML IV SCH (20:49)
[2022-06-04] VITALS (36 sets, daily range): BP systolic 103–125; BP diastolic 57–72
[2022-06-04 04:37] LABS: Basophils # (auto) 0.1 10 ^3/uL (0-0.2); Eosinophils # (auto) 0.4 10 ^3/uL (0-0.8); Hemoglobin 8.5 g/dL (13.5-17.5); Lymphocytes # (auto) 1.4 10 ^3/uL (0.4-5.4); Neutrophils # (auto) 4.7 10 ^3/uL (1.6-8.6)
[2022-06-04 04:39] LABS: Basophils % (auto) 1.2 % (0.0-2.0); Hematocrit 26.3 % (41.0-53.0); Lymphocytes % (auto) 20.1 % (10.0-50.0); Mean Corpuscular Hemoglobin 31.5 pg (28.0-32.0); Mean Corpuscular Hgb Conc. 32.1 g/dL (32.0-36.0); Mean Corpuscular Volume 98.1 fL (80.0-100.0); Monocytes # (auto) 0.5 10 ^3/uL (0-1.3); Monocytes % (auto) 7.7 % (0.0-12.0); Red Blood Cells 2.68 10^6/uL (4.5-5.90); White Blood Cell 7.1 10^3/uL (4.4-10.8)
[2022-06-04 04:48] LABS: Red Cell Distribution Width 28.3 % (11.8-14.3)
[2022-06-04 05:32] LABS: Albumin 2.1 g/dL (3.4-5.0); BUN/Creatinine Ratio 5.3; Calcium 8.5 mg/dL (8.5-10.1); Potassium 3.8 mmol/L (3.5-5.1)
[2022-06-04 05:34] LABS: Bilirubin, Total 0.7 mg/dL (0.2-1.0); Total Protein 5.6 g/dL (6.4-8.2)
[2022-06-04] MEDS: METOCLOPRAMIDE HCL 5MG/ml INJ 2ml VIAL IV SCH ×3 (05:54→22:00)
[2022-06-04] MEDS: InsuLIN REG 1unit/0.01ml Soln (100units/ml) SC SCH ×3 (05:56→17:49)
[2022-06-04] MEDS: SODIUM CHLOR 0.9% PF (SALINE LOCK) 10ML VIAL/SYR IV SCH ×3 (05:56→22:00)
[2022-06-04] MEDS: ACCU-CHEK COMFORT CURVE STRIP VI SCH ×3 (05:56→17:49)
[2022-06-04] MEDS: ALBUTEROL SULF 2.5 MG/0.5ML(0.5%) NEB SOLN NEB SCH ×3 (06:20→18:17)
[2022-06-04] MEDS: IPRATROPIUM BROM 0.5 MG/2.5ML INH SOL NEB SCH ×3 (06:20→18:17)
[2022-06-04] MEDS: MEROPENEM 500MG IVPB 50 ML IV SCH ×2 (08:25→22:30)
[2022-06-04] MEDS: FAMOTIDINE (10MG/ML) 2ML VL IV SCH ×2 (09:27→22:00)
[2022-06-04] MEDS: MULTIPLE VITAMIN TAB PO SCH (09:28)
[2022-06-04] MEDS: FLUCONAZOLE 200MG/100ML 100 ML IV SCH ×2 (09:28→10:29)
[2022-06-04] MEDS: DAKINS QUARTER STR 0.125% (NaHypochlorite) 473 ML TOPICAL SOL TOP SCH ×2 (09:28→22:00)
[2022-06-04] MEDS: MIDAZOLAM DRIP 50 mg/50mL 50 ML IV SCH (23:45)
[2022-06-05] VITALS (40 sets, daily range): BP systolic 108–137; BP diastolic 57–93
[2022-06-05] MEDS: ACCU-CHEK COMFORT CURVE STRIP VI SCH ×3 (00:04→19:30)
[2022-06-05] MEDS: NOREPINEPHRINE 8 MG/250ML KIT 250 ML IV SCH (01:15)
[2022-06-05] MEDS: fentaNYL Drip 2500mCg/250mlNS 250 ML IV SCH (02:00)
[2022-06-05 04:36] LABS: Basophils # (auto) 0.1 10 ^3/uL (0-0.2); Eosinophils # (auto) 0.4 10 ^3/uL (0-0.8); Hematocrit 26.4 % (41.0-53.0); Hemoglobin 8.5 g/dL (13.5-17.5); Monocytes # (auto) 0.5 10 ^3/uL (0-1.3); Neutrophils # (auto) 3.6 10 ^3/uL (1.6-8.6)
[2022-06-05 04:38] LABS: Basophils % (auto) 1.3 % (0.0-2.0); Eosinophils % (auto) 6.2 % (0.0-7.0); Lymphocytes # (auto) 1.2 10 ^3/uL (0.4-5.4); Lymphocytes % (auto) 21.3 % (10.0-50.0); Mean Corpuscular Hemoglobin 32.2 pg (28.0-32.0); Mean Corpuscular Hgb Conc. 32.4 g/dL (32.0-36.0); Mean Corpuscular Volume 99.2 fL (80.0-100.0); Monocytes % (auto) 8.6 % (0.0-12.0); Neutrophils % (auto) 62.6 % (37.0-80.0); Nucleated Red Blood Cells % 0.1 %; Red Blood Cells 2.66 10^6/uL (4.5-5.90); White Blood Cell 5.8 10^3/uL (4.4-10.8)
[2022-06-05 04:46] LABS: Red Cell Distribution Width 27.5 % (11.8-14.3)
[2022-06-05 04:58] LABS: Potassium 3.7 mmol/L (3.5-5.1)
[2022-06-05 05:07] LABS: Albumin 2.1 g/dL (3.4-5.0); BUN/Creatinine Ratio 5.9; Calcium 8.6 mg/dL (8.5-10.1)
[2022-06-05 05:08] LABS: Bilirubin, Total 0.7 mg/dL (0.2-1.0); Total Protein 5.7 g/dL (6.4-8.2)
[2022-06-05] MEDS: IPRATROPIUM BROM 0.5 MG/2.5ML INH SOL NEB SCH ×3 (05:10→18:22)
[2022-06-05] MEDS: ALBUTEROL SULF 2.5 MG/0.5ML(0.5%) NEB SOLN NEB SCH ×3 (05:10→18:22)
[2022-06-05] MEDS: SODIUM CHLOR 0.9% PF (SALINE LOCK) 10ML VIAL/SYR IV SCH ×3 (06:00→21:58)
[2022-06-05] MEDS: InsuLIN REG 1unit/0.01ml Soln (100units/ml) SC SCH ×3 (06:00→19:30)
[2022-06-05] MEDS: METOCLOPRAMIDE HCL 5MG/ml INJ 2ml VIAL IV SCH ×3 (06:00→21:59)
[2022-06-05] MEDS ORDERED: SODIUM CHL 0.9% 1000 ML BAG XX ONE (07:00)
[2022-06-05] MEDS: DAKINS QUARTER STR 0.125% (NaHypochlorite) 473 ML TOPICAL SOL TOP SCH ×2 (10:45→21:58)
[2022-06-05] MEDS: ALBUMIN 25% 100 ML IV PRN (14:00)
[2022-06-05] MEDS: MULTIPLE VITAMIN TAB PO SCH (17:00)
[2022-06-05] MEDS: FAMOTIDINE (10MG/ML) 2ML VL IV SCH ×2 (17:00→21:57)
[2022-06-05] MEDS: MEROPENEM 500MG IVPB 50 ML IV SCH (17:00)
[2022-06-05] MEDS: FLUCONAZOLE 200MG/100ML 100 ML IV SCH ×2 (20:59→22:22)
[2022-06-05] MEDS ORDERED: EPOETIN ALFA-EPBX 10,000 UNIT/1ML VIAL SC ONE (21:00)
[2022-06-05] MEDS: MIDAZOLAM DRIP 50 mg/50mL 50 ML IV SCH (23:45)
[2022-06-06] VITALS (35 sets, daily range): BP systolic 113–138; BP diastolic 63–87
[2022-06-06] MEDS: DEXTROSE (50%) 50ML SYRG IV PRN ×2 (00:42→18:47)
[2022-06-06] MEDS: NOREPINEPHRINE 8 MG/250ML KIT 250 ML IV SCH (01:15)
[2022-06-06] MEDS: fentaNYL Drip 2500mCg/250mlNS 250 ML IV SCH (02:00)
[2022-06-06] MEDS: MEROPENEM 500MG IVPB 50 ML IV SCH ×2 (05:29→17:00)
[2022-06-06] MEDS: METOCLOPRAMIDE HCL 5MG/ml INJ 2ml VIAL IV SCH ×3 (05:34→21:51)
[2022-06-06] MEDS: ACCU-CHEK COMFORT CURVE STRIP VI SCH ×4 (05:34→18:00)
[2022-06-06] MEDS: SODIUM CHLOR 0.9% PF (SALINE LOCK) 10ML VIAL/SYR IV SCH ×3 (05:34→21:51)
[2022-06-06] MEDS: InsuLIN REG 1unit/0.01ml Soln (100units/ml) SC SCH ×4 (06:00→18:00)
[2022-06-06] MEDS: IPRATROPIUM BROM 0.5 MG/2.5ML INH SOL NEB SCH ×3 (06:11→18:06)
[2022-06-06] MEDS: ALBUTEROL SULF 2.5 MG/0.5ML(0.5%) NEB SOLN NEB SCH ×3 (06:11→18:06)
[2022-06-06] MEDS: DAPTOmycin 500 MG in SODIUM CHL 0.9% 50 ML IV SCH (09:04)
[2022-06-06] MEDS: FLUCONAZOLE 200MG/100ML 100 ML IV SCH ×2 (09:04→11:30)
[2022-06-06] MEDS: FAMOTIDINE (10MG/ML) 2ML VL IV SCH ×2 (09:05→21:51)
[2022-06-06] MEDS: DAKINS QUARTER STR 0.125% (NaHypochlorite) 473 ML TOPICAL SOL TOP SCH ×2 (09:05→21:51)
[2022-06-06] MEDS: MULTIPLE VITAMIN TAB PO SCH (09:05)
[2022-06-07] VITALS (44 sets, daily range): BP systolic 110–134; BP diastolic 63–86
[2022-06-07] MEDS: ACCU-CHEK COMFORT CURVE STRIP VI SCH ×4 (01:10→16:06)
[2022-06-07 05:10] LABS: Basophils # (auto) 0.1 10 ^3/uL (0-0.2); Basophils % (auto) 2.1 % (0.0-2.0); Eosinophils # (auto) 0.4 10 ^3/uL (0-0.8); Eosinophils % (auto) 7.4 % (0.0-7.0); Hematocrit 28.9 % (41.0-53.0); Hemoglobin 8.9 g/dL (13.5-17.5); Lymphocytes # (auto) 1.3 10 ^3/uL (0.4-5.4); Lymphocytes % (auto) 25.2 % (10.0-50.0); Mean Corpuscular Hemoglobin 31.3 pg (28.0-32.0); Mean Corpuscular Volume 101.2 fL (80.0-100.0); Monocytes # (auto) 0.4 10 ^3/uL (0-1.3); Monocytes % (auto) 7.7 % (0.0-12.0); Neutrophils # (auto) 2.9 10 ^3/uL (1.6-8.6); Neutrophils % (auto) 57.6 % (37.0-80.0); Nucleated Red Blood Cells % 0.1 %; Red Blood Cells 2.85 10^6/uL (4.5-5.90)
[2022-06-07 05:24] LABS: Calcium 8.9 mg/dL (8.5-10.1); Magnesium 2.3 mg/dL (1.6-2.6); Potassium 3.9 mmol/L (3.5-5.1)
[2022-06-07 05:26] LABS: BUN/Creatinine Ratio 5.7
[2022-06-07 05:38] LABS: Red Cell Distribution Width 27.6 % (11.8-14.3)
[2022-06-07] MEDS: InsuLIN REG 1unit/0.01ml Soln (100units/ml) SC SCH ×4 (06:00→18:00)
[2022-06-07] MEDS: MEROPENEM 500MG IVPB 50 ML IV SCH ×2 (06:05→17:00)
[2022-06-07] MEDS: METOCLOPRAMIDE HCL 5MG/ml INJ 2ml VIAL IV SCH ×2 (06:46→14:00)
[2022-06-07] MEDS: SODIUM CHLOR 0.9% PF (SALINE LOCK) 10ML VIAL/SYR IV SCH ×3 (06:47→22:00)
[2022-06-07] MEDS: DEXTROSE (50%) 50ML SYRG IV PRN (07:05)
[2022-06-07] MEDS: MULTIPLE VITAMIN TAB PO SCH (10:00)
[2022-06-07] MEDS: DAKINS QUARTER STR 0.125% (NaHypochlorite) 473 ML TOPICAL SOL TOP SCH ×2 (10:00→22:00)
[2022-06-07] MEDS: FAMOTIDINE (10MG/ML) 2ML VL IV SCH (10:00)
[2022-06-07] MEDS: FLUCONAZOLE 200MG/100ML 100 ML IV SCH ×2 (10:00→11:00)
[2022-06-07] MEDS: IPRATROPIUM BROM 0.5 MG/2.5ML INH SOL NEB SCH ×2 (10:49→18:37)
[2022-06-07] MEDS: ALBUTEROL SULF 2.5 MG/0.5ML(0.5%) NEB SOLN NEB SCH ×2 (10:49→18:37)
[2022-06-07] MEDS: ALBUMIN 25% 100 ML IV PRN ×2 (11:20→12:20)
[2022-06-08] VITALS (35 sets, daily range): BP systolic 116–127; BP diastolic 61–80
[2022-06-08] MEDS: ALBUTEROL SULF 2.5 MG/0.5ML(0.5%) NEB SOLN NEB SCH ×4 (00:19→18:29)
[2022-06-08] MEDS: IPRATROPIUM BROM 0.5 MG/2.5ML INH SOL NEB SCH ×4 (00:19→18:29)
[2022-06-08] MEDS: DEXTROSE (50%) 50ML SYRG IV PRN ×2 (01:00→23:31)
[2022-06-08] MEDS: FAMOTIDINE (10MG/ML) 2ML VL IV SCH ×3 (02:21→21:40)
[2022-06-08] MEDS: METOCLOPRAMIDE HCL 5MG/ml INJ 2ml VIAL IV SCH ×4 (02:23→22:00)
[2022-06-08] MEDS: ACCU-CHEK COMFORT CURVE STRIP VI SCH ×5 (02:23→23:27)
[2022-06-08] MEDS: LORazepam 0.5 MG TAB PO PRN (02:25)
[2022-06-08] MEDS: SODIUM CHLOR 0.9% PF (SALINE LOCK) 10ML VIAL/SYR IV SCH ×3 (05:29→22:00)
[2022-06-08] MEDS: MEROPENEM 500MG IVPB 50 ML IV SCH ×2 (05:29→16:15)
[2022-06-08] MEDS: InsuLIN REG 1unit/0.01ml Soln (100units/ml) SC SCH ×5 (05:30→23:30)
[2022-06-08] MEDS: DAPTOmycin 500 MG in SODIUM CHL 0.9% 50 ML IV SCH (08:12)
[2022-06-08] MEDS: DAKINS QUARTER STR 0.125% (NaHypochlorite) 473 ML TOPICAL SOL TOP SCH ×2 (10:00→22:00)
[2022-06-08] MEDS: FLUCONAZOLE 200MG/100ML 100 ML IV SCH ×2 (11:00→11:11)
[2022-06-08] MEDS: MULTIPLE VITAMIN TAB PO SCH (11:11)
[2022-06-08] MEDS ORDERED: ETOMIDATE (2MG/ML) 20ML VIAL IV ONE (14:22)
[2022-06-08] MEDS ORDERED: SUCCINYLCHOLINE CHLORIDE 20 MG/ML 10ML VIAL IV ONE (14:22)
[2022-06-08] MEDS: MIDAZOLAM DRIP 50 mg/50mL 50 ML IV SCH ×3 (15:07→23:27)
[2022-06-08] MEDS: fentaNYL Drip 2500mCg/250mlNS 250 ML IV SCH (15:09)
[2022-06-09] VITALS (107 sets, daily range): BP systolic 89–127; BP diastolic 49–80
[2022-06-09 03:34] LABS: Basophils # (auto) 0.1 10 ^3/uL (0-0.2); Lymphocytes # (auto) 0.9 10 ^3/uL (0.4-5.4); Mean Corpuscular Hgb Conc. 32.8 g/dL (32.0-36.0); Neutrophils % (auto) 63.6 % (37.0-80.0)
[2022-06-09 03:40] LABS: Basophils % (auto) 2.5 % (0.0-2.0); Eosinophils # (auto) 0.3 10 ^3/uL (0-0.8); Eosinophils % (auto) 7.5 % (0.0-7.0); Hematocrit 25.5 % (41.0-53.0); Hemoglobin 8.4 g/dL (13.5-17.5); Mean Corpuscular Hemoglobin 32.2 pg (28.0-32.0); Monocytes # (auto) 0.3 10 ^3/uL (0-1.3); Monocytes % (auto) 6.4 % (0.0-12.0); Neutrophils # (auto) 2.9 10 ^3/uL (1.6-8.6); Nucleated Red Blood Cells % 0.2 %; White Blood Cell 4.6 10^3/uL (4.4-10.8)
[2022-06-09 03:43] LABS: Red Cell Distribution Width 26.3 % (11.8-14.3)
[2022-06-09 03:59] LABS: Albumin 2.3 g/dL (3.4-5.0); BUN/Creatinine Ratio 6.7; Calcium 8.4 mg/dL (8.5-10.1); Magnesium 2.3 mg/dL (1.6-2.6); Potassium 3.7 mmol/L (3.5-5.1)
[2022-06-09 04:02] LABS: Bilirubin, Total 0.7 mg/dL (0.2-1.0); Total Protein 5.8 g/dL (6.4-8.2)
[2022-06-09] MEDS: MEROPENEM 500MG IVPB 50 ML IV SCH ×2 (05:00→17:29)
[2022-06-09] MEDS: InsuLIN REG 1unit/0.01ml Soln (100units/ml) SC SCH ×3 (05:49→16:30)
[2022-06-09] MEDS: ACCU-CHEK COMFORT CURVE STRIP VI SCH ×3 (05:49→16:30)
[2022-06-09] MEDS: SODIUM CHLOR 0.9% PF (SALINE LOCK) 10ML VIAL/SYR IV SCH ×3 (05:51→21:36)
[2022-06-09] MEDS: METOCLOPRAMIDE HCL 5MG/ml INJ 2ml VIAL IV SCH ×3 (05:51→21:35)
[2022-06-09] MEDS: IPRATROPIUM BROM 0.5 MG/2.5ML INH SOL NEB SCH ×3 (06:50→18:57)
[2022-06-09] MEDS: ALBUTEROL SULF 2.5 MG/0.5ML(0.5%) NEB SOLN NEB SCH ×3 (06:51→18:57)
[2022-06-09 08:51] LABS: INR 1.24 (0.9-1.15); Partial Thromboplastin Time 40.4 sec (24.6-33.4)
[2022-06-09] MEDS: MULTIPLE VITAMIN TAB PO SCH (09:14)
[2022-06-09] MEDS: NOREPINEPHRINE 8 MG/250ML KIT 250 ML IV SCH ×3 (09:46→12:44)
[2022-06-09] MEDS: fentaNYL Drip 2500mCg/250mlNS 250 ML IV SCH (09:48)
[2022-06-09] MEDS: FLUCONAZOLE 200MG/100ML 100 ML IV SCH ×2 (10:12→11:54)
[2022-06-09] MEDS: DAKINS QUARTER STR 0.125% (NaHypochlorite) 473 ML TOPICAL SOL TOP SCH ×2 (10:13→21:36)
[2022-06-09] MEDS: FAMOTIDINE (10MG/ML) 2ML VL IV SCH ×2 (10:13→21:35)
[2022-06-09] MEDS: D5W 5% 1,000 ML IV SCH (12:00)
[2022-06-09] MEDS: MIDAZOLAM DRIP 50 mg/50mL 50 ML IV SCH (12:45)
[2022-06-09] MEDS ORDERED: HEPARIN 1,000 UNITS/ml 1ML VIAL IV ONE ×2 (16:00)
[2022-06-09] MEDS: DEXTROSE 10% 1,000 ML IV SCH (20:06)
[2022-06-09] MEDS ORDERED: EPOETIN ALFA-EPBX 10,000 UNIT/1ML VIAL SC ONE (21:00)
[2022-06-10] VITALS (104 sets, daily range): BP systolic 91–121; BP diastolic 47–72
[2022-06-10] MEDS: ACCU-CHEK COMFORT CURVE STRIP VI SCH ×4 (00:18→18:03)
[2022-06-10] MEDS: MIDAZOLAM DRIP 50 mg/50mL 50 ML IV SCH ×3 (00:19→18:06)
[2022-06-10] MEDS: NOREPINEPHRINE 8 MG/250ML KIT 250 ML IV SCH (01:15)
[2022-06-10] MEDS: fentaNYL Drip 2500mCg/250mlNS 250 ML IV SCH ×2 (02:00→09:02)
[2022-06-10 04:40] LABS: Eosinophils # (auto) 0.3 10 ^3/uL (0-0.8); Hemoglobin 8.2 g/dL (13.5-17.5); Monocytes # (auto) 0.3 10 ^3/uL (0-1.3); Monocytes % (auto) 7.6 % (0.0-12.0)
[2022-06-10] MEDS: MEROPENEM 500MG IVPB 50 ML IV SCH ×2 (04:41→18:04)
[2022-06-10 04:42] LABS: Basophils # (auto) 0 10 ^3/uL (0-0.2); Basophils % (auto) 0.9 % (0.0-2.0); Eosinophils % (auto) 6.2 % (0.0-7.0); Hematocrit 25.6 % (41.0-53.0); Lymphocytes % (auto) 24.9 % (10.0-50.0); Mean Corpuscular Hemoglobin 31.4 pg (28.0-32.0); Neutrophils # (auto) 2.5 10 ^3/uL (1.6-8.6); Neutrophils % (auto) 60.4 % (37.0-80.0); Nucleated Red Blood Cells % 0.2 %; Red Blood Cells 2.61 10^6/uL (4.5-5.90); White Blood Cell 4.2 10^3/uL (4.4-10.8)
[2022-06-10 04:44] LABS: Red Cell Distribution Width 26.6 % (11.8-14.3)
[2022-06-10 04:51] LABS: Albumin 2.4 g/dL (3.4-5.0); Calcium 8.4 mg/dL (8.5-10.1); Potassium 3.8 mmol/L (3.5-5.1)
[2022-06-10 04:52] LABS: BUN/Creatinine Ratio 5.6
[2022-06-10 04:56] LABS: Bilirubin, Total 0.7 mg/dL (0.2-1.0); Total Protein 5.6 g/dL (6.4-8.2)
[2022-06-10] MEDS: METOCLOPRAMIDE HCL 5MG/ml INJ 2ml VIAL IV SCH ×3 (06:00→22:31)
[2022-06-10] MEDS: SODIUM CHLOR 0.9% PF (SALINE LOCK) 10ML VIAL/SYR IV SCH ×3 (06:00→22:31)
[2022-06-10] MEDS: InsuLIN REG 1unit/0.01ml Soln (100units/ml) SC SCH ×4 (06:00→18:00)
[2022-06-10] MEDS: IPRATROPIUM BROM 0.5 MG/2.5ML INH SOL NEB SCH ×3 (06:02→18:07)
[2022-06-10] MEDS: ALBUTEROL SULF 2.5 MG/0.5ML(0.5%) NEB SOLN NEB SCH ×3 (06:02→18:07)
[2022-06-10] MEDS: D5W 5% 1,000 ML IV SCH (08:00)
[2022-06-10] MEDS: DAPTOmycin 500 MG in SODIUM CHL 0.9% 50 ML IV SCH (08:41)
[2022-06-10] MEDS: FAMOTIDINE (10MG/ML) 2ML VL IV SCH ×2 (09:37→22:31)
[2022-06-10] MEDS: DAKINS QUARTER STR 0.125% (NaHypochlorite) 473 ML TOPICAL SOL TOP SCH ×2 (09:38→22:31)
[2022-06-10] MEDS: MULTIPLE VITAMIN TAB PO SCH (09:38)
[2022-06-10] MEDS: FLUCONAZOLE 200MG/100ML 100 ML IV SCH ×2 (11:10→12:49)
[2022-06-10] MEDS: DEXTROSE 10% 1,000 ML IV SCH (18:12)
[2022-06-11] VITALS (99 sets, daily range): BP systolic 92–117; BP diastolic 50–76
[2022-06-11] MEDS: FREE WATER GT SCH ×4 (00:09→18:00)
[2022-06-11] MEDS: ACCU-CHEK COMFORT CURVE STRIP VI SCH ×4 (00:09→18:16)
[2022-06-11] MEDS: NOREPINEPHRINE 8 MG/250ML KIT 250 ML IV SCH (01:15)
[2022-06-11] MEDS: MIDAZOLAM DRIP 50 mg/50mL 50 ML IV SCH ×4 (02:00→21:54)
[2022-06-11] MEDS: fentaNYL Drip 2500mCg/250mlNS 250 ML IV SCH ×2 (02:00→21:17)
[2022-06-11] MEDS: D5W 5% 1,000 ML IV SCH (04:00)
[2022-06-11] MEDS: MEROPENEM 500MG IVPB 50 ML IV SCH ×2 (05:21→17:00)
[2022-06-11 05:47] LABS: Potassium 4.2 mmol/L (3.5-5.1)
[2022-06-11 05:51] LABS: Albumin 2.2 g/dL (3.4-5.0); BUN/Creatinine Ratio 5.9; Calcium 8.5 mg/dL (8.5-10.1)
[2022-06-11 05:54] LABS: Bilirubin, Total 0.8 mg/dL (0.2-1.0); Total Protein 5.7 g/dL (6.4-8.2)
[2022-06-11 05:55] LABS: Hematocrit 25.9 % (41.0-53.0); Hemoglobin 8.2 g/dL (13.5-17.5); Mean Corpuscular Hgb Conc. 31.6 g/dL (32.0-36.0); White Blood Cell 4.4 10^3/uL (4.4-10.8)
[2022-06-11] MEDS: IPRATROPIUM BROM 0.5 MG/2.5ML INH SOL NEB SCH ×3 (06:15→12:59)
[2022-06-11] MEDS: SODIUM CHLOR 0.9% PF (SALINE LOCK) 10ML VIAL/SYR IV SCH ×3 (06:27→21:37)
[2022-06-11] MEDS: METOCLOPRAMIDE HCL 5MG/ml INJ 2ml VIAL IV SCH ×3 (06:28→21:37)
[2022-06-11 06:29] LABS: Mean Corpuscular Hemoglobin 31.3 pg (28.0-32.0); Mean Corpuscular Volume 98.9 fL (80.0-100.0); Red Blood Cells 2.62 10^6/uL (4.5-5.90)
[2022-06-11 06:30] LABS: Red Cell Distribution Width 26.5 % (11.8-14.3)
[2022-06-11] MEDS: InsuLIN REG 1unit/0.01ml Soln (100units/ml) SC SCH ×4 (06:30→18:00)
[2022-06-11 06:31] LABS: Basophils % (manual) 0 (0.0-2.0); Blast Cells 0; Metamyelocytes % 0; Myelocytes % 0; Promyelocytes % 0; Reactive Lymphocytes 0
[2022-06-11 08:48] LABS: Band Neutrophils % (manual) 6; Eosinophils % (manual) 4 (0-7); Lymphocytes % (manual) 27 (10.0-50.0); Monocytes % (manual) 7 (0-12)
[2022-06-11] MEDS: ALBUTEROL SULF 2.5 MG/0.5ML(0.5%) NEB SOLN NEB SCH ×2 (08:55→12:58)
[2022-06-11] MEDS: FAMOTIDINE (10MG/ML) 2ML VL IV SCH ×2 (09:33→21:37)
[2022-06-11] MEDS: MULTIPLE VITAMIN TAB PO SCH (09:33)
[2022-06-11] MEDS: DAKINS QUARTER STR 0.125% (NaHypochlorite) 473 ML TOPICAL SOL TOP SCH ×2 (09:33→21:37)
[2022-06-11] MEDS: FLUCONAZOLE 200MG/100ML 100 ML IV SCH ×2 (09:37→11:00)
[2022-06-11] MEDS: DEXTROSE 10% 1,000 ML IV SCH ×2 (19:00→23:15)
[2022-06-12] VITALS (51 sets, daily range): BP systolic 92–130; BP diastolic 60–84
[2022-06-12] MEDS: ACCU-CHEK COMFORT CURVE STRIP VI SCH ×4 (00:11→17:37)
[2022-06-12] MEDS: FREE WATER GT SCH ×4 (00:12→17:21)
[2022-06-12] MEDS: InsuLIN REG 1unit/0.01ml Soln (100units/ml) SC SCH ×4 (00:30→17:37)
[2022-06-12] MEDS: NOREPINEPHRINE 8 MG/250ML KIT 250 ML IV SCH (01:15)
[2022-06-12 04:33] LABS: Hematocrit 26.7 % (41.0-53.0); Hemoglobin 8.5 g/dL (13.5-17.5); Mean Corpuscular Hemoglobin 31.5 pg (28.0-32.0); Mean Corpuscular Volume 98.5 fL (80.0-100.0); Red Blood Cells 2.71 10^6/uL (4.5-5.90); White Blood Cell 4.5 10^3/uL (4.4-10.8)
[2022-06-12 04:48] LABS: Red Cell Distribution Width 25.7 % (11.8-14.3)
[2022-06-12 04:50] LABS: Basophils % (manual) 0 (0.0-2.0); Blast Cells 0; Metamyelocytes % 0; Myelocytes % 0; Promyelocytes % 0
[2022-06-12] MEDS: MEROPENEM 500MG IVPB 50 ML IV SCH ×2 (04:52→17:00)
[2022-06-12] MEDS ORDERED: EPOETIN ALFA-EPBX 10,000 UNIT/1ML VIAL SC ONE (05:00)
[2022-06-12] MEDS: METOCLOPRAMIDE HCL 5MG/ml INJ 2ml VIAL IV SCH ×3 (05:32→22:00)
[2022-06-12] MEDS: SODIUM CHLOR 0.9% PF (SALINE LOCK) 10ML VIAL/SYR IV SCH ×2 (05:32→12:28)
[2022-06-12] MEDS: ALBUTEROL SULF 2.5 MG/0.5ML(0.5%) NEB SOLN NEB SCH ×4 (06:15→18:20)
[2022-06-12] MEDS ORDERED: SODIUM CHL 0.9% 1000 ML BAG XX ONE (07:00)
[2022-06-12 07:17] LABS: Albumin 2.1 g/dL (3.4-5.0); Anion Gap 6 (5-15); Blood Urea Nitrogen 28 mg/dL (7-18); Calcium 8.4 mg/dL (8.5-10.1); Carbon Dioxide 30 mmol/L (21-32); Chloride 106 mmol/L (98-107); Glucose 82 mg/dL (74-106); Potassium 4.4 mmol/L (3.5-5.1); Sodium 142 mmol/L (136-145)
[2022-06-12 07:19] LABS: Alanine Aminotransferase 10 U/L (16-61); Aspartate Aminotransferase 24 U/L (15-37); GFR African American 17 mL/min; GFR Non-African American 14 mL/min
[2022-06-12 07:22] LABS: Alkaline Phosphatase 109 U/L (45-117); Bilirubin, Total 0.6 mg/dL (0.2-1.0); Total Protein 5.6 g/dL (6.4-8.2)
[2022-06-12 07:32] LABS: BUN/Creatinine Ratio 6.1
[2022-06-12] MEDS: DAPTOmycin 500 MG in SODIUM CHL 0.9% 50 ML IV SCH (08:00)
[2022-06-12] MEDS: MULTIPLE VITAMIN TAB PO SCH (09:04)
[2022-06-12] MEDS: DAKINS QUARTER STR 0.125% (NaHypochlorite) 473 ML TOPICAL SOL TOP SCH (09:05)
[2022-06-12 09:34] LABS: Band Neutrophils % (manual) 9; Eosinophils % (manual) 7 (0-7); Lymphocytes % (manual) 19 (10.0-50.0); Monocytes % (manual) 6 (0-12); Reactive Lymphocytes 6
[2022-06-12] MEDS: FLUCONAZOLE 200MG/100ML 100 ML IV SCH ×2 (10:31→11:04)
[2022-06-12] MEDS: FAMOTIDINE (10MG/ML) 2ML VL IV SCH (10:32)
[2022-06-12] MEDS: IPRATROPIUM BROM 0.5 MG/2.5ML INH SOL NEB SCH ×3 (11:22→18:20)
[2022-06-12] MEDS ORDERED: HEPARIN 1,000 UNITS/ml 1ML VIAL ONE (15:00)
[2022-06-12] MEDS: D5W 5% 1,000 ML IV SCH ×2 (17:37)
[2022-06-13] VITALS (42 sets, daily range): BP systolic 98–126; BP diastolic 61–80
[2022-06-13] MEDS: NOREPINEPHRINE 8 MG/250ML KIT 250 ML IV SCH (01:15)
[2022-06-13] MEDS ORDERED: ROCURONIUM 10MG/ML 10ML VIAL IV ONE (01:56)
[2022-06-13] MEDS: MEROPENEM 500MG IVPB 50 ML IV SCH ×2 (05:00→17:00)
[2022-06-13 05:02] LABS: Basophils # (auto) 0.1 10 ^3/uL (0-0.2); Eosinophils # (auto) 0.2 10 ^3/uL (0-0.8); Eosinophils % (auto) 4.6 % (0.0-7.0); Lymphocytes # (auto) 1.1 10 ^3/uL (0.4-5.4); Nucleated Red Blood Cells % 0.2 %
[2022-06-13 05:05] LABS: Basophils % (auto) 2.8 % (0.0-2.0); Hematocrit 24.4 % (41.0-53.0); Hemoglobin 7.9 g/dL (13.5-17.5); Lymphocytes % (auto) 26.6 % (10.0-50.0); Mean Corpuscular Hemoglobin 31.8 pg (28.0-32.0); Mean Corpuscular Hgb Conc. 32.5 g/dL (32.0-36.0); Mean Corpuscular Volume 97.7 fL (80.0-100.0); Monocytes # (auto) 0.3 10 ^3/uL (0-1.3); Monocytes % (auto) 6.4 % (0.0-12.0); Neutrophils # (auto) 2.4 10 ^3/uL (1.6-8.6); Neutrophils % (auto) 59.6 % (37.0-80.0); Red Blood Cells 2.49 10^6/uL (4.5-5.90)
[2022-06-13 05:26] LABS: Red Cell Distribution Width 25.1 % (11.8-14.3)
[2022-06-13 05:36] LABS: Potassium 4.2 mmol/L (3.5-5.1)
[2022-06-13 05:41] LABS: BUN/Creatinine Ratio 6.1; Calcium 8.3 mg/dL (8.5-10.1)
[2022-06-13 05:45] LABS: Bilirubin, Total 0.6 mg/dL (0.2-1.0); Total Protein 5.3 g/dL (6.4-8.2)
[2022-06-13] MEDS: ACCU-CHEK COMFORT CURVE STRIP VI SCH ×4 (06:00→17:58)
[2022-06-13] MEDS: DAKINS QUARTER STR 0.125% (NaHypochlorite) 473 ML TOPICAL SOL TOP SCH ×2 (06:00→10:00)
[2022-06-13] MEDS: SODIUM CHLOR 0.9% PF (SALINE LOCK) 10ML VIAL/SYR IV SCH ×4 (06:00→22:00)
[2022-06-13] MEDS: METOCLOPRAMIDE HCL 5MG/ml INJ 2ml VIAL IV SCH ×3 (06:00→22:00)
[2022-06-13] MEDS: FREE WATER GT SCH ×4 (06:00→17:58)
[2022-06-13] MEDS: InsuLIN REG 1unit/0.01ml Soln (100units/ml) SC SCH ×4 (06:00→17:58)
[2022-06-13] MEDS: IPRATROPIUM BROM 0.5 MG/2.5ML INH SOL NEB SCH ×2 (06:13→11:59)
[2022-06-13] MEDS: ALBUTEROL SULF 2.5 MG/0.5ML(0.5%) NEB SOLN NEB SCH ×2 (06:13→11:59)
[2022-06-13] MEDS: FLUCONAZOLE 200MG/100ML 100 ML IV SCH ×2 (10:00→11:00)
[2022-06-13] MEDS: FAMOTIDINE (10MG/ML) 2ML VL IV SCH ×3 (10:00→22:00)
[2022-06-13] MEDS: MULTIPLE VITAMIN TAB PO SCH (10:00)
[2022-06-13] MEDS: MIDAZOLAM DRIP 50 mg/50mL 50 ML IV SCH (13:00)
[2022-06-13] MEDS: D5W 5% 1,000 ML IV SCH (16:00)
[2022-06-14] VITALS (60 sets, daily range): BP systolic 86–124; BP diastolic 54–79
[2022-06-14] MEDS: NOREPINEPHRINE 8 MG/250ML KIT 250 ML IV SCH (01:15)
[2022-06-14] MEDS: InsuLIN REG 1unit/0.01ml Soln (100units/ml) SC SCH ×4 (01:15→18:00)
[2022-06-14] MEDS: ACCU-CHEK COMFORT CURVE STRIP VI SCH ×4 (01:15→18:00)
[2022-06-14] MEDS: fentaNYL Drip 2500mCg/250mlNS 250 ML IV SCH (02:00)
[2022-06-14] MEDS: DEXTROSE 10% 1,000 ML IV SCH ×2 (04:00→18:39)
[2022-06-14] MEDS: DAKINS QUARTER STR 0.125% (NaHypochlorite) 473 ML TOPICAL SOL TOP SCH ×3 (04:30→23:08)
[2022-06-14] MEDS: MEROPENEM 500MG IVPB 50 ML IV SCH ×2 (05:30→16:56)
[2022-06-14] MEDS: SODIUM CHLOR 0.9% PF (SALINE LOCK) 10ML VIAL/SYR IV SCH ×3 (06:00→23:07)
[2022-06-14] MEDS: METOCLOPRAMIDE HCL 5MG/ml INJ 2ml VIAL IV SCH ×3 (06:00→23:07)
[2022-06-14] MEDS: FREE WATER GT SCH ×4 (06:00→16:56)
[2022-06-14] MEDS ORDERED: SODIUM CHL 0.9% 1000 ML BAG XX ONE (07:00)
[2022-06-14] MEDS: IPRATROPIUM BROM 0.5 MG/2.5ML INH SOL NEB SCH ×3 (07:03→18:56)
[2022-06-14] MEDS: ALBUTEROL SULF 2.5 MG/0.5ML(0.5%) NEB SOLN NEB SCH ×3 (07:04→18:56)
[2022-06-14] MEDS: DAPTOmycin 500 MG in SODIUM CHL 0.9% 50 ML IV SCH (08:00)
[2022-06-14] MEDS: MULTIPLE VITAMIN TAB PO SCH (10:00)
[2022-06-14] MEDS: FLUCONAZOLE 200MG/100ML 100 ML IV SCH ×2 (10:00→11:00)
[2022-06-14] MEDS: FAMOTIDINE (10MG/ML) 2ML VL IV SCH ×2 (10:00→23:07)
[2022-06-14 11:34] LABS: INR 1.22 (0.9-1.15); Partial Thromboplastin Time 42.5 sec (24.6-33.4)
[2022-06-14] MEDS: D5W 5% 1,000 ML IV SCH (12:00)
[2022-06-14] MEDS ORDERED: ALBUMIN 25% 100 ML IV SCH (20:00)
[2022-06-14] MEDS ORDERED: EPOETIN ALFA-EPBX 10,000 UNIT/1ML VIAL SC ONE (21:00)
[2022-06-14] MEDS: MIDAZOLAM DRIP 50 mg/50mL 50 ML IV SCH (23:45)
[2022-06-15] VITALS (79 sets, daily range): BP systolic 92–141; BP diastolic 60–88
[2022-06-15] MEDS: fentaNYL Drip 2500mCg/250mlNS 250 ML IV SCH ×2 (00:35→02:00)
[2022-06-15] MEDS: NOREPINEPHRINE 8 MG/250ML KIT 250 ML IV SCH (01:15)
[2022-06-15] MEDS: MIDAZOLAM DRIP 50 mg/50mL 50 ML IV SCH ×3 (02:55→17:28)
[2022-06-15 04:49] LABS: INR 1.28 (0.9-1.15); Partial Thromboplastin Time 41.6 sec (24.6-33.4)
[2022-06-15 04:50] LABS: BUN/Creatinine Ratio 7.2; Calcium 7.9 mg/dL (8.5-10.1)
[2022-06-15] MEDS: MEROPENEM 500MG IVPB 50 ML IV SCH ×2 (05:35→17:27)
[2022-06-15] MEDS: FREE WATER GT SCH ×5 (06:00→22:14)
[2022-06-15] MEDS: InsuLIN REG 1unit/0.01ml Soln (100units/ml) SC SCH ×4 (06:00→17:27)
[2022-06-15] MEDS: METOCLOPRAMIDE HCL 5MG/ml INJ 2ml VIAL IV SCH ×3 (06:17→22:13)
[2022-06-15] MEDS: SODIUM CHLOR 0.9% PF (SALINE LOCK) 10ML VIAL/SYR IV SCH ×3 (06:18→22:14)
[2022-06-15] MEDS: ALBUTEROL SULF 2.5 MG/0.5ML(0.5%) NEB SOLN NEB SCH ×3 (06:48→18:25)
[2022-06-15] MEDS: IPRATROPIUM BROM 0.5 MG/2.5ML INH SOL NEB SCH ×3 (06:48→18:25)
[2022-06-15] MEDS ORDERED: LIDOCAINE 1%HCL (LOCAL ANESTH) 10 ML MDV ONE (06:48)
[2022-06-15] MEDS: ACCU-CHEK COMFORT CURVE STRIP VI SCH ×4 (06:54→17:27)
[2022-06-15] MEDS ORDERED: EPINEPHrine HCL 1 MG/1 ML AMP ONE (06:58)
[2022-06-15] MEDS ORDERED: BUPIVACAINE HCL 0.25% P/F 10 ML VIAL ONE (06:58)
[2022-06-15] MEDS: D5W 5% 1,000 ML IV SCH (08:16)
[2022-06-15 08:39] LABS: Basophils # (auto) 0.1 10 ^3/uL (0-0.2); Basophils % (auto) 2.1 % (0.0-2.0); Eosinophils # (auto) 0.2 10 ^3/uL (0-0.8); Eosinophils % (auto) 4.2 % (0.0-7.0); Hematocrit 27.1 % (41.0-53.0); Hemoglobin 8.5 g/dL (13.5-17.5); Lymphocytes # (auto) 1.2 10 ^3/uL (0.4-5.4); Lymphocytes % (auto) 23.2 % (10.0-50.0); Mean Corpuscular Hemoglobin 31.2 pg (28.0-32.0); Mean Corpuscular Hgb Conc. 31.5 g/dL (32.0-36.0); Monocytes # (auto) 0.5 10 ^3/uL (0-1.3); Monocytes % (auto) 9.2 % (0.0-12.0); Neutrophils # (auto) 3.3 10 ^3/uL (1.6-8.6); Neutrophils % (auto) 61.3 % (37.0-80.0); Nucleated Red Blood Cells % 0.2 %; Red Blood Cells 2.73 10^6/uL (4.5-5.90); Red Cell Distribution Width 25.1 % (11.8-14.3); White Blood Cell 5.3 10^3/uL (4.4-10.8)
[2022-06-15] MEDS ORDERED: MIDAZOLAM HCL 2MG/2ML 2ml VIAL (1mg/ml) ONE (09:35)
[2022-06-15] MEDS ORDERED: fentaNYL CITRATE 100 MCG/2 ML VL ONE (09:35)
[2022-06-15] MEDS ORDERED: MEPERIDINE HCL (25 MG/ML) 1ML VIAL ONE (09:35)
[2022-06-15] MEDS: DAKINS QUARTER STR 0.125% (NaHypochlorite) 473 ML TOPICAL SOL TOP SCH ×2 (10:00→22:14)
[2022-06-15] MEDS: MULTIPLE VITAMIN TAB PO SCH (10:00)
[2022-06-15] MEDS ORDERED: DexAMETHasone SOD PHOS 10MG/1ML VIAL INJ ONE (10:15)
[2022-06-15] MEDS ORDERED: PROPOFOL 10 MG/ML 20 ML IV ONE (10:15)
[2022-06-15] MEDS: FAMOTIDINE (10MG/ML) 2ML VL IV SCH ×2 (11:51→22:13)
[2022-06-15] MEDS: FLUCONAZOLE 200MG/100ML 100 ML IV SCH ×2 (11:51→13:48)
[2022-06-15] MEDS: DEXTROSE 10% 1,000 ML IV SCH (19:00)
[2022-06-16] VITALS (48 sets, daily range): BP systolic 92–119; BP diastolic 54–77
[2022-06-16] MEDS: InsuLIN REG 1unit/0.01ml Soln (100units/ml) SC SCH ×4 (00:33→17:42)
[2022-06-16] MEDS: ACCU-CHEK COMFORT CURVE STRIP VI SCH ×4 (00:36→17:43)
[2022-06-16] MEDS: NOREPINEPHRINE 8 MG/250ML KIT 250 ML IV SCH (01:15)
[2022-06-16] MEDS: fentaNYL Drip 2500mCg/250mlNS 250 ML IV SCH (02:24)
[2022-06-16] MEDS: D5W 5% 1,000 ML IV SCH (04:00)
[2022-06-16] MEDS: FREE WATER GT SCH ×4 (05:23→23:01)
[2022-06-16] MEDS: METOCLOPRAMIDE HCL 5MG/ml INJ 2ml VIAL IV SCH ×3 (05:47→21:41)
[2022-06-16] MEDS: SODIUM CHLOR 0.9% PF (SALINE LOCK) 10ML VIAL/SYR IV SCH ×3 (05:47→21:42)
[2022-06-16] MEDS: IPRATROPIUM BROM 0.5 MG/2.5ML INH SOL NEB SCH ×3 (05:50→18:10)
[2022-06-16] MEDS: ALBUTEROL SULF 2.5 MG/0.5ML(0.5%) NEB SOLN NEB SCH ×3 (05:50→18:10)
[2022-06-16] MEDS: MEROPENEM 500MG IVPB 50 ML IV SCH ×2 (06:01→17:54)
[2022-06-16] MEDS ORDERED: SODIUM CHL 0.9% 1000 ML BAG XX ONE (07:00)
[2022-06-16] MEDS: DAPTOmycin 500 MG in SODIUM CHL 0.9% 50 ML IV SCH (08:00)
[2022-06-16] MEDS: MULTIPLE VITAMIN TAB PO SCH (10:00)
[2022-06-16] MEDS: FLUCONAZOLE 200MG/100ML 100 ML IV SCH ×2 (10:17→11:00)
[2022-06-16] MEDS: FAMOTIDINE (10MG/ML) 2ML VL IV SCH ×2 (10:18→21:41)
[2022-06-16] MEDS: DAKINS QUARTER STR 0.125% (NaHypochlorite) 473 ML TOPICAL SOL TOP SCH ×2 (10:18→21:42)
[2022-06-16] MEDS: DEXTROSE 10% 1,000 ML IV SCH (20:05)
[2022-06-16] MEDS ORDERED: EPOETIN ALFA-EPBX 10,000 UNIT/1ML VIAL SC ONE (21:00)
[2022-06-16] MEDS: MIDAZOLAM DRIP 50 mg/50mL 50 ML IV SCH (23:45)
[2022-06-17] VITALS (58 sets, daily range): BP systolic 104–133; BP diastolic 2–88
[2022-06-17] MEDS: InsuLIN REG 1unit/0.01ml Soln (100units/ml) SC SCH ×3 (00:30→12:00)
[2022-06-17] MEDS: ACCU-CHEK COMFORT CURVE STRIP VI SCH ×4 (00:30→17:53)
[2022-06-17] MEDS: D5W 5% 1,000 ML IV SCH ×2 (00:41→04:27)
[2022-06-17] MEDS: DEXTROSE (50%) 50ML SYRG IV PRN ×2 (00:41→06:18)
[2022-06-17] MEDS: NOREPINEPHRINE 8 MG/250ML KIT 250 ML IV SCH (00:50)
[2022-06-17] MEDS: fentaNYL Drip 2500mCg/250mlNS 250 ML IV SCH (02:00)
[2022-06-17] MEDS ORDERED: MEROPENEM 1GM IVPB 100 ML IV ONE (04:36)
[2022-06-17] MEDS: MEROPENEM 500MG IVPB 50 ML IV SCH ×2 (05:09→17:20)
[2022-06-17] MEDS: FREE WATER GT SCH ×3 (05:10→17:53)
[2022-06-17] MEDS: SODIUM CHLOR 0.9% PF (SALINE LOCK) 10ML VIAL/SYR IV SCH ×3 (05:55→22:36)
[2022-06-17] MEDS: METOCLOPRAMIDE HCL 5MG/ml INJ 2ml VIAL IV SCH (05:55)
[2022-06-17 08:12] LABS: Basophils # (auto) 0 10 ^3/uL (0-0.2); Basophils % (auto) 0.9 % (0.0-2.0); Eosinophils # (auto) 0 10 ^3/uL (0-0.8); Eosinophils % (auto) 0.3 % (0.0-7.0); Hemoglobin 8.8 g/dL (13.5-17.5); Lymphocytes # (auto) 1.2 10 ^3/uL (0.4-5.4); Lymphocytes % (auto) 23.8 % (10.0-50.0); Mean Corpuscular Hemoglobin 30.8 pg (28.0-32.0); Mean Corpuscular Hgb Conc. 31.4 g/dL (32.0-36.0); Mean Corpuscular Volume 98.1 fL (80.0-100.0); Monocytes # (auto) 0.6 10 ^3/uL (0-1.3); Neutrophils # (auto) 3.3 10 ^3/uL (1.6-8.6); Nucleated Red Blood Cells % 0.1 %; Red Blood Cells 2.85 10^6/uL (4.5-5.90); White Blood Cell 5.1 10^3/uL (4.4-10.8)
[2022-06-17 08:22] LABS: Red Cell Distribution Width 24.2 % (11.8-14.3)
[2022-06-17 08:45] LABS: BUN/Creatinine Ratio 11.9; Calcium 7.9 mg/dL (8.5-10.1); Potassium 4.1 mmol/L (3.5-5.1)
[2022-06-17] MEDS: DAKINS QUARTER STR 0.125% (NaHypochlorite) 473 ML TOPICAL SOL TOP SCH ×2 (10:00→22:36)
[2022-06-17] MEDS: MULTIPLE VITAMIN TAB PO SCH (10:00)
[2022-06-17] MEDS: FAMOTIDINE (10MG/ML) 2ML VL IV SCH ×2 (10:46→22:36)
[2022-06-17] MEDS: FLUCONAZOLE 200MG/100ML 100 ML IV SCH ×2 (10:48→12:08)
[2022-06-17] MEDS: IPRATROPIUM BROM 0.5 MG/2.5ML INH SOL NEB SCH ×2 (11:59→18:54)
[2022-06-17] MEDS: ALBUTEROL SULF 2.5 MG/0.5ML(0.5%) NEB SOLN NEB SCH ×2 (11:59→18:55)
[2022-06-17] MEDS ORDERED: Glucerna 1.2 Cal 1Liter BOTTLE GT SCH (15:15)
[2022-06-17] MEDS: DEXTROSE 10% 1,000 ML IV SCH (22:35)
[2022-06-17] MEDS: MIDAZOLAM DRIP 50 mg/50mL 50 ML IV SCH (22:36)
[2022-06-18] VITALS (61 sets, daily range): BP systolic 103–133; BP diastolic 65–91
[2022-06-18] MEDS: NOREPINEPHRINE 8 MG/250ML KIT 250 ML IV SCH (01:15)
[2022-06-18] MEDS: fentaNYL Drip 2500mCg/250mlNS 250 ML IV SCH (01:28)
[2022-06-18] MEDS ORDERED: MEROPENEM 1GM IVPB 100 ML IV ONE (05:02)
[2022-06-18] MEDS: MEROPENEM 500MG IVPB 50 ML IV SCH ×2 (05:05→17:09)
[2022-06-18] MEDS: FREE WATER GT SCH ×4 (05:06→17:09)
[2022-06-18] MEDS: SODIUM CHLOR 0.9% PF (SALINE LOCK) 10ML VIAL/SYR IV SCH ×3 (05:07→22:00)
[2022-06-18] MEDS: ACCU-CHEK COMFORT CURVE STRIP VI SCH ×4 (05:07→17:09)
[2022-06-18] MEDS: IPRATROPIUM BROM 0.5 MG/2.5ML INH SOL NEB SCH ×3 (06:32→18:49)
[2022-06-18] MEDS: ALBUTEROL SULF 2.5 MG/0.5ML(0.5%) NEB SOLN NEB SCH ×3 (06:32→18:49)
[2022-06-18] MEDS: DAPTOmycin 500 MG in SODIUM CHL 0.9% 50 ML IV SCH (08:14)
[2022-06-18] MEDS: DAKINS QUARTER STR 0.125% (NaHypochlorite) 473 ML TOPICAL SOL TOP SCH ×2 (10:14→22:00)
[2022-06-18] MEDS: FAMOTIDINE (10MG/ML) 2ML VL IV SCH ×2 (10:14→22:00)
[2022-06-18] MEDS: MULTIPLE VITAMIN TAB PO SCH (10:14)
[2022-06-18] MEDS: DEXTROSE 10% 1,000 ML IV SCH (18:59)
[2022-06-18] MEDS: MIDAZOLAM DRIP 50 mg/50mL 50 ML IV SCH (23:45)
[2022-06-19] VITALS (38 sets, daily range): BP systolic 108–159; BP diastolic 22–91
[2022-06-19] MEDS: ACCU-CHEK COMFORT CURVE STRIP VI SCH ×3 (00:16→12:00)
[2022-06-19] MEDS: NOREPINEPHRINE 8 MG/250ML KIT 250 ML IV SCH (01:15)
[2022-06-19] MEDS: MEROPENEM 500MG IVPB 50 ML IV SCH (05:00)
[2022-06-19] MEDS: SODIUM CHLOR 0.9% PF (SALINE LOCK) 10ML VIAL/SYR IV SCH ×2 (05:49→13:33)
[2022-06-19 05:53] LABS: Basophils # (auto) 0 10 ^3/uL (0-0.2); Eosinophils # (auto) 0.1 10 ^3/uL (0-0.8); Lymphocytes # (auto) 0.9 10 ^3/uL (0.4-5.4); Mean Corpuscular Hemoglobin 31.8 pg (28.0-32.0); Monocytes # (auto) 0.4 10 ^3/uL (0-1.3); Neutrophils # (auto) 3.4 10 ^3/uL (1.6-8.6)
[2022-06-19 06:00] LABS: Eosinophils % (auto) 1.8 % (0.0-7.0); Hematocrit 23.8 % (41.0-53.0); Hemoglobin 7.8 g/dL (13.5-17.5); Lymphocytes % (auto) 18.5 % (10.0-50.0); Mean Corpuscular Hgb Conc. 32.9 g/dL (32.0-36.0); Mean Corpuscular Volume 96.8 fL (80.0-100.0); Monocytes % (auto) 7.4 % (0.0-12.0); Neutrophils % (auto) 71.3 % (37.0-80.0); Nucleated Red Blood Cells % 0.1 %; Red Blood Cells 2.46 10^6/uL (4.5-5.90); White Blood Cell 4.8 10^3/uL (4.4-10.8)
[2022-06-19] MEDS: FREE WATER GT SCH ×3 (06:00→12:00)
[2022-06-19 06:11] LABS: BUN/Creatinine Ratio 13.5; Calcium 7.4 mg/dL (8.5-10.1); Potassium 4.9 mmol/L (3.5-5.1)
[2022-06-19] MEDS: fentaNYL Drip 2500mCg/250mlNS 250 ML IV SCH (06:14)
[2022-06-19 06:19] LABS: Red Cell Distribution Width 23.4 % (11.8-14.3)
[2022-06-19] MEDS: ALBUTEROL SULF 2.5 MG/0.5ML(0.5%) NEB SOLN NEB SCH ×2 (06:41→11:58)
[2022-06-19] MEDS: IPRATROPIUM BROM 0.5 MG/2.5ML INH SOL NEB SCH ×2 (06:41→11:58)
[2022-06-19] MEDS ORDERED: SODIUM CHL 0.9% 1000 ML BAG XX ONE (07:00)
[2022-06-19] MEDS: MULTIPLE VITAMIN TAB PO SCH (09:18)
[2022-06-19] MEDS: FAMOTIDINE (10MG/ML) 2ML VL IV SCH (09:18)
[2022-06-19] MEDS: DAKINS QUARTER STR 0.125% (NaHypochlorite) 473 ML TOPICAL SOL TOP SCH (09:19)
[2022-06-19] MEDS ORDERED: EPOETIN ALFA-EPBX 10,000 UNIT/1ML VIAL SC ONE (21:00)
== END 2022-06-19 15:30 | DRG 4 ==
LOC: ER 08:11 → EDBD 08:11 → TELE 17:09 → ICU WEST 05-24 23:35 → TELE-WESTW 05-24 23:36 → ICU WEST 05-30 03:03
PROVIDERS: ADMIT Nurse Practitioner Family; ATTEND Internal Medicine Pulmonary Disease
PROC: 5A1D70Z Performance of Urinary Filtration, Intermittent, Less than 6 Hours Per Day (ICD-10-PCS; 2022-05-27)
PROC: 5A1D70Z Performance of Urinary Filtration, Intermittent, Less than 6 Hours Per Day (ICD-10-PCS; 2022-05-29)
PROC: 5A1955Z Respiratory Ventilation, Greater than 96 Consecutive Hours (ICD-10-PCS; principal; 2022-05-30)
PROC: 0BH17EZ Insertion of Endotracheal Airway into Trachea, Via Natural or Artificial Opening (ICD-10-PCS; 2022-05-30)
PROC: 5A12012 Performance of Cardiac Output, Single, Manual (ICD-10-PCS; 2022-05-30)
PROC: 30233R1 Transfusion of Nonautologous Platelets into Peripheral Vein, Percutaneous Approach (ICD-10-PCS; 2022-05-30)
PROC: 30233N1 Transfusion of Nonautologous Red Blood Cells into Peripheral Vein, Percutaneous Approach (ICD-10-PCS; 2022-05-30)
PROC: 0W9G3ZZ Drainage of Peritoneal Cavity, Percutaneous Approach (ICD-10-PCS; 2022-05-30)
PROC: 5A1D70Z Performance of Urinary Filtration, Intermittent, Less than 6 Hours Per Day (ICD-10-PCS; 2022-05-31)
PROC: 5A1D70Z Performance of Urinary Filtration, Intermittent, Less than 6 Hours Per Day (ICD-10-PCS; 2022-06-02)
PROC: 5A1D70Z Performance of Urinary Filtration, Intermittent, Less than 6 Hours Per Day (ICD-10-PCS; 2022-06-05)
PROC: 5A1D70Z Performance of Urinary Filtration, Intermittent, Less than 6 Hours Per Day (ICD-10-PCS; 2022-06-07)
PROC: 5A1D70Z Performance of Urinary Filtration, Intermittent, Less than 6 Hours Per Day (ICD-10-PCS; 2022-06-09)
PROC: 5A1D70Z Performance of Urinary Filtration, Intermittent, Less than 6 Hours Per Day (ICD-10-PCS; 2022-06-12)
PROC: 5A1D70Z Performance of Urinary Filtration, Intermittent, Less than 6 Hours Per Day (ICD-10-PCS; 2022-06-14)
PROC: 0B110F4 Bypass Trachea to Cutaneous with Tracheostomy Device, Open Approach (ICD-10-PCS; 2022-06-15)
PROC: 5A1D70Z Performance of Urinary Filtration, Intermittent, Less than 6 Hours Per Day (ICD-10-PCS; 2022-06-16)
PROC: 05HB33Z Insertion of Infusion Device into Right Basilic Vein, Percutaneous Approach (ICD-10-PCS; 2022-06-19)
PROC: B54MZZA Ultrasonography of Right Upper Extremity Veins, Guidance (ICD-10-PCS; 2022-06-19)
DX: E11.621 Type 2 diabetes mellitus with foot ulcer (principal); J96.01 Acute respiratory failure with hypoxia; I46.8 Cardiac arrest due to other underlying condition; U07.1 COVID-19; E44.0 Moderate protein-calorie malnutrition; I13.2 Hypertensive heart and chronic kidney disease with heart failure and with stage 5 chronic kidney disease, or end stage renal disease; R18.8 Other ascites; E87.0 Hyperosmolality and hypernatremia; R57.9 Shock, unspecified; M86.8X7 Other osteomyelitis, ankle and foot; Z99.11 Dependence on respirator [ventilator] status; N18.6 End stage renal disease; Z20.822 Contact with and (suspected) exposure to COVID-19; D69.6 Thrombocytopenia, unspecified; E11.649 Type 2 diabetes mellitus with hypoglycemia without coma; I50.9 Heart failure, unspecified; D63.1 Anemia in chronic kidney disease; D64.9 Anemia, unspecified; L97.529 Non-pressure chronic ulcer of other part of left foot with unspecified severity; M89.8X9 Other specified disorders of bone, unspecified site; I25.10 Atherosclerotic heart disease of native coronary artery without angina pectoris; E78.5 Hyperlipidemia, unspecified; E11.22 Type 2 diabetes mellitus with diabetic chronic kidney disease; E11.65 Type 2 diabetes mellitus with hyperglycemia; E11.69 Type 2 diabetes mellitus with other specified complication; Z99.2 Dependence on renal dialysis; I25.2 Old myocardial infarction; Z98.61 Coronary angioplasty status; Z82.49 Family history of ischemic heart disease and other diseases of the circulatory system; Z83.3 Family history of diabetes mellitus
CPT/HCPCS: 36415; 36600; 70450; 70490; 71045; 71250; 73630; 76705; 76942; 80048; 80053; 80074; 81001; 82550; 82553; 82805; 82947; 82962; 83605; 83735; 83880; 83986; 84132; 84484; 85007; 85025; 85027; 85610; 85730; 86703; 86704; 86706; 86708; 86803; 86850; 86900; 86901; 86920; 87040; 87070; 87077; 87081; 87086; 87186; 87205; 87340; 87426; 87493; 87804; 89051; 90935; 93005; 94002; 94003; 94640; 96365; 96368; 96375; 97110; 97530; 99291; A4605; G0378; J0171; J0330; J1100; J1450; J1642; J1815; J2001; J2185; J2250; J2543; J2704; J3490; J7060